=== PATIENT | male | born 1980 | race Caucasian/White ===

== ENCOUNTER 2020-02-23 16:00 | Inpatient (IN) | payer OTHER, SELFPAY ==
[2020-02-23] VITALS (18 sets, daily range): BP systolic 95–133; BP diastolic 53–86; PULSE 60–107; RESP 18–23; TEMP 35.8–36.8; O2SAT 89–100; BMI 29.2; BMI 29.0
--- NOTE | 2020-02-23 | ECG_ITS ---
Test Reason : UNRESPONSIVE Blood Pressure : / mmHG Vent. Rate : 092 BPM Atrial Rate : 092 BPM P-R Int : 122 ms QRS Dur : 096 ms QT Int : 376 ms P-R-T Axes : 070 041 066 degrees QTc Int : 464 ms Normal sinus rhythm Possible Lateral infarct , age undetermined Abnormal ECG No previous ECGs available Referred By: Rosemary Mondragon Electronically Signed By:JADA RETANA
--- NOTE | 2020-02-23 | XR_ITS ---
EXAMINATION: XR CHEST CLINICAL INFORMATION: OG tube COMPARISON: Chest radiograph from earlier in the same day TECHNIQUE: Frontal view of the chest was obtained. FINDINGS: The patient is intubated, the endotracheal tube tip is 5.9 cm from the ghislaine. There is been interval placement of an enteric tube with tip coiled in the gastric fundus below the diaphragm. There are bilateral left greater than right patchy/nodular opacities in the lungs without dense consolidation. IMPRESSION: 1. Enteric tube is coiled within the stomach. 2. Endotracheal tube is 5.8 cm from the ghislaine. 3. Bilateral, left greater than right patchy/nodular airspace opacities which could represent developing infiltrates in the right clinical setting
--- NOTE | 2020-02-23 | XR_ITS ---
EXAMINATION: XR CHEST CLINICAL INFORMATION: Post intubation COMPARISON: Previous chest CT November 2018 TECHNIQUE: Frontal view of the chest was obtained. FINDINGS: The cardiac and mediastinal contours are normal. There is an endotracheal tube with tip 7 cm above the ghislaine. The lungs are clear. There is no pleural effusion or pneumothorax. Bony structures are unremarkable. IMPRESSION: Endotracheal tube 7 cm above the ghislaine.
--- NOTE | 2020-02-23 | CT_ITS ---
EXAMINATION: CT SOFT TISSUE NECK WITHOUT CONTRAST CLINICAL INFORMATION: Submandibular swelling. Airway compromise. COMPARISON: Chest regressed from 02/23/2020. TECHNIQUE: Multidetector helical imaging was performed in the axial plane without intravenous contrast. Multiple axial reformats and coronal/sagittal reconstructions were created the technologist workstation for review. DLP: 487 mGy-cm This CT examination was performed using dose optimization techniques as appropriate, variously including the following: *Automated exposure control. *Adjustment of mA and/or kV according to patient size (this includes techniques or standardized protocols for targeted exams where dose is matched to indication/reason for exam; i.e. extremities or head). *Use of iterative reconstruction technique. FINDINGS: Mild asymmetric enlargement of the left submandibular gland relative to the right. Associated mild prominence of the left-sided submandibular ducts. No demonstrated obstructive focal stone or soft tissue mass lesion. There is moderate fat stranding/phlegmonous change centered on the left submandibular space the most notably extends into the left floor of mouth and left-sided tissues deep to the platysma muscle. To a lesser extent, there is also mild fat stranding in the left parapharyngeal space and left carotid space. No demonstrated parapharyngeal or retropharyngeal collections. Moderate thickening of the left side of the platysma muscle. Mild cutaneous thickening throughout the anterior neck with subcutaneous fat stranding. The premaxillary, retromaxillary, right-sided parapharyngeal, pterygopalatine fossa, and pretracheal adipose tissue is clear. No demonstrated abnormalities within the intrinsic tissues of the tongue. There is mild asymmetric sclerosis of the left mandibular body surrounding the premolar roots relative to the right side. Odontogenic enamel erosions of the maxillary molars. There is also erosion of the outer cortex of the alveolar process of the maxilla along the buccal roots of the left 2nd maxillary molar. However, there is no discrete periapical disease, cortical destruction, or odontogenic collection demonstrated. Normal appearance of the bilateral parotid glands. Normal appearance of the thyroid gland. Scattered subcentimeter lymph nodes bilaterally, none of which are pathologically enlarged. The patient is intubated with orogastric tube in place. Layering fluid within the pharynx, presumably related to intubation. No demonstrated radiopaque foreign bodies. Moderate mucosal thickening of the paranasal sinuses with mucous retention cyst in the right maxillary sinus. The mastoid air cells and middle ear cavities remain well aerated. The visualized portion of the skull base is without significant abnormalities. The atlantooccipital and atlantoaxial articulations remain well aligned. There is anatomic alignment of the vertebral bodies and posterior elements. No evidence of acute fracture or subluxation of the cervical spine. The vertebral body heights are maintained. The intervertebral disc spaces are maintained. There is no prevertebral soft tissue swelling. CT Upper Chest: The visualized lung apices and upper mediastinum are within normal limits. IMPRESSION: Mild asymmetric enlargement of the left submandibular gland relative to the right with mildly dilated salivary ducts. No demonstrated obstructive stone or soft tissue lesion. There is moderate edema/phlegmonous change throughout the left side of neck, centered on the submandibular gland. Findings remain suggestive of sialoadenitis. Osseous erosion or odontogenic collection there is mandibular and maxillary odontogenic disease, including erosion along the buccal roots of the left maxillary 2nd molar. However, there is no definitively demonstrated odontogenic collection. No discrete drainable fluid collection. No radiopaque foreign bodies. The patient is intubated with orogastric tube in place.
--- NOTE | 2020-02-23 16:18 | PC.NURSE ---
PT PREPARED FOR INTUBATION, 0.3 EPI GIVEN IM.
--- NOTE | 2020-02-23 16:19 | PC.NURSE ---
20 OF ETOMIDATE IN, 100 SUCC IN. P94.
--- NOTE | 2020-02-23 16:21 | PC.NURSE ---
RT AT BEDSIDE. INTUBATION SUCCESSFUL + COLOUR CHANGE. 25 @LIP #7.5. 18G IN L AC. 1L NS HUNG BP 188/122
--- NOTE | 2020-02-23 16:27 | PC.NURSE ---
TOTAL 4MG VERSED GIVEN FROM RSI KIT ORDERED PER .
--- NOTE | 2020-02-23 16:42 | PC.NURSE ---
PROPOFOL DRIP STARTED @ 20MCG/KG/MIN 94.1KG. 50MG PROPOFOL IVBOLUS GIVEN. PT REMAINS INTERMITTENTLY ALERT, EYES OPENING SPONTANEOUSLY. SOFT RESTRAINTS APPLIED.
[2020-02-23] MEDS: propofoL 1,000 MG/100 ML VIAL 11.43 MG IVCONT ×2 (16:43→20:26)
--- NOTE | 2020-02-23 16:50 | ED_ITS ---
HPI - Allergic Reaction General Chief complaint: Allergic Reaction Stated complaint: Swollen Lymph Node Time Seen by Provider: 02/23/20 16:30 Source: patient Mode of arrival: ambulatory History of Present Illness HPI narrative: I was called bedside secondary to shortness of breath after eating a sandwich. High-pressure patient on arrival to the ER patient states 1 hour ago he ate a chicken sandwich. Prior to 1 hour patient was completely normal no fevers no chills no respiratory distress. Upon my initial evaluation the decision was made to move the patient to a trauma room and intubated. No further history obtained MD complaint: allergic reaction Related Data Allergies Allergy/AdvReac Type Severity Reaction Status Date / Time penicillin V Allergy Unknown Verified 10/27/19 00:00 Penicillins [PENICILLINS] Allergy Unknown UNKNOWN Unverified 02/05/20 16:40 REACTION A CHILD Review of Systems Review of Systems: Yes all other systems are reviewed and are negative Constitutional: Constitutional: Reports as per HPI ENT: Comments: left-sided throat swelling Cardiovascular: Cardiovascular: Reports diaphoresis Respiratory: Respiratory: Denies hemoptysis [facility] Past Medical History Attestation statement: The following information was validated with the patient. Source: unable to obtain Medical History No known health problems Social History Social History Advance Directives: No Advance Directives Information Provided: No Physical Exam Vital Signs and I&O and Narrative: Vital Signs and I&O: Vital Signs Temp 98.1 F 02/23/20 16:05 Pulse 89 02/23/20 19:05 Resp 23 H 02/23/20 19:05 BP 120/78 02/23/20 19:05 Pulse Ox 100 02/23/20 19:05 Intake & Output 02/23/20 02/23/20 02/24/20 06:59 18:59 06:59 Weight 95.254 kg Body Mass Index 29.2 vital signs reviewed, hypoxia pulse ox 89% interpreted by me on room air Const: Other: Appearance: Alert mild distress Oriented X3. Eyes: Pupils equal, round and reactive to light. ENT: edema to submandibular area on the left. No tongue edema. No lacerations no abscess Neck: left submandibular edema no erythema no lacerations abrasions CVS: slightheart rate and rhythm. Pulses normal. Respiratory: mild respiratory distress. Breath sounds normal. no wheezing no rales Abdomen: Soft and nontender. Skin: Skin warm and dry. Normal skin color. Normal skin turgor. Extremities: No lower extremity edema. No lower extremity edema. Neuro: Oriented X 3. No motor deficit. No sensory deficit. General: No no acute distress Course Course Course Narrative: 39-year-old with severe anaphylaxis immediately intubated on arrival to emergency department. Will need IV sedation. IV Decadron. Admission to the ICU. I did speak with Dr. wang ICU will accept the p atient. throughout emergency department stay and was in room numerous times secondary to patient needed more sedation. Patient was fighting the vent multiple IV medications were given secondary to sedation. Patient did not pull the ET tube out which is good went to CT scan and I see a Procedures Intubation Time out performed: No sedative: Etomidate paralytic: Succinylcholine Laryngoscope: fiber optic video scope ET Tube Size: 7.5 ET Tube Uncuffed: Yes Tube Secured Depth (cm): 24 Tube Secured Location: lips Tube Placement Confirmation: visualized tube passing through cords, equal breath sounds bilaterally and confirmation by capnometry Patient Tolerated Procedure: well Intubation Complications: none MDM - Allergic Reaction Differential Diagnosis Differential diagnosis: Likely anaphylaxis, allergic reaction and angioedema Medical Records Attestation: I reviewed the patient's medical records. Lab Data Attestation: I reviewed the patient's lab results. Result diagrams: 02/23/20 17:22 02/23/20 17:22 Labs: Lab Results 02/23/20 02/23/20 Range/Units 17:22 17:22 WBC 12.0 H (4.8-10.8) X10*3/uL RBC 4.57 L (4.60-5.80) X10*6/uL Hgb 14.8 (14.0-18.0) g/dl Hct 43.3 (42-52) % MCV 94.7 (80-98) fL MCH 32.4 (27.0-33.0) pg MCHC 34.2 (31.0-36.0) g/dl RDW 12.7 (11.0-16.0) % Plt Count 269 (160-400) X10*3/uL MPV 9.3 L (9.4-12.4) fL Immature Gran % (Auto) 0.3 (0.0-0.4) % Neut % (Auto) 71.7 (45-73) % Lymph % (Auto) 18.2 L (20-40) % [place] % (Auto) 8.4 (2-11) % Eos % (Auto) 1.0 (0-4) % Baso % (Auto) 0.4 (0-2) % Neut # (Auto) 8.6 H (2.0-8.3) X10*3/uL Lymph # (Auto) 2.2 (1.2-4.9) X10*3/uL [place] # (Auto) 1.0 (0.1-1.2) X10*3/uL Eos # (Auto) 0.1 (0.0-0.4) X10*3/uL Baso # (Auto) 0.1 (0.0-0.2) X10*3/uL Abs Immat Gran (auto) 0.04 H (0.00-0.03) X10*3/uL Absolute Nucleated RBC 0.000 (0.0-0.012) X10*3/uL Nucleated RBC % (auto) 0.0 (0.0-0.2) /100WBC Sodium 143 (135-145) mmol/L Potassium 3.6 (3.3-5.1) mmol/l Chloride 112 H (96-108) mmol/L Carbon Dioxide 22 (22-29) mmol/L Anion Gap 13 (12-20) BUN 13 (9-16) mg/dL Creatinine 0.98 (0.5-1.4) mg/dL Estim Creat Clear Calc 121.5 Estimated GFR > 60 Random Glucose 82 (60-115) mg/dL Calcium 7.8 L (8.4-10.2) mg/dL Critical Care Time Critical Care Time Critical Care Time: Yes Total Critical Care Time: 35 Attestation: I attest to my care with Critical Care.. Multiple re- evaluations were done with me in vent management. Discharge Plan Discharge Clinical Impression: Anaphylaxis, Respiratory failure, Allergic angioedema Patient Disposition: Admitted as Observation
[2020-02-23] MEDS: 0.9 % Sodium Chloride 1,000 ML 999 ML IVCONT (16:58)
--- NOTE | 2020-02-23 17:00 | PC.NURSE ---
SBPS IN THE 90S, PROPOFOL DOSE TAPERED TO 10MCG/KG/HR. 1L OF NS ON PRESSURE BAG HUNG. SECOND 18G PERIPHERAL IV PLACED IN R LOWER ARM.
[2020-02-23] MEDS: dexAMETHasone sod phosphate 4 MG/ML VIAL 8 MG IVPUSH (17:30)
--- NOTE | 2020-02-23 17:30 | PC.NURSE ---
PT CONTINUES TO BE DIFFICULT TO KEEP SEDATED. MDS AT BEDSIDE. REPORT GIVEN TO LENS INSPECTOR. ADDITIONAL 25 CG FENTANYL IVP GIVEN PER VERBAL ORDER. SBPS>120S. . FENTANYL DRIP STARTED AT PROTOCOL DRIP START RATE. PROPOFOL INCREASED BACK TO 20MCG/KG./HR
[2020-02-23 17:54] LABS: MANUAL DIFF FLAG NO
[2020-02-23] MEDS: Midazolam HCl/PF 2 MG/2 ML VIAL IVPUSH (17:54)
[2020-02-23 17:56] LABS: Basophils Absolute Auto 0.1 X10*3/uL (0.0-0.2); Basophils Percent Auto 0.4 % (0-2); Eosinophils Absolute Auto 0.1 X10*3/uL (0.0-0.4); Hematocrit 43.3 % (42-52); Hemoglobin 14.8 g/dl (14.0-18.0); Imm Gran Abs Auto 0.04 X10*3/uL (0.00-0.03); Imm Gran Pct Auto 0.3 % (0.0-0.4); Lymphocytes Absolute Auto 2.2 X10*3/uL (1.2-4.9); Lymphocytes Percent Auto 18.2 % (20-40); Mean Corpuscular HGB Conc 34.2 g/dl (31.0-36.0); Mean Corpuscular Hemoglobin 32.4 pg (27.0-33.0); Mean Corpuscular Volume 94.7 fL (80-98); Mean Platelet Volume 9.3 fL (9.4-12.4); Monocytes Percent Auto 8.4 % (2-11); Neutrophils Absolute Auto 8.6 X10*3/uL (2.0-8.3); Neutrophils Percent Auto 71.7 % (45-73); Platelet Count 269 X10*3/uL (160-400); Red Blood Count 4.57 X10*6/uL (4.60-5.80); Red Cell Distribution Width 12.7 % (11.0-16.0)
--- NOTE | 2020-02-23 17:59 | PM.CCHP ---
History of Present Illness Date of Service: 02/23/20 Chief Complaint: neck swelling with rapidly progressive inability to swallow 39-year-old who had just eaten a sandwich came in complaining of submandibular swelling rapidly losing ability to swallow and became panicky over his breathing and was emergently intubated for what seemed to be an anaphylaxis but with no skin manifestations no lip or periorbital edema no rashes and no fever and was perfectly well up until having eaten that Hernan which history of penicillin allergy Review of Systems Review of Systems: Patient presented in in extremis rapidly losing his airway unable to give complete history but outside of complaints of swelling and inability to swallow and fear of airway compromise review of systems was otherwise negative especially no constitutional complaints of fever or chills Yes all other systems are reviewed and are negative [facility] Past Medical History Medical History No known health problems Social History Social History Smoking Status: Current every day smoker Tobacco Type: Cigarette Advance Directives: No Advance Directives Information Provided: No Meds Allergies Allergy/AdvReac Type Severity Reaction Status Date / Time penicillin V Allergy Unknown Unknown Verified 02/23/20 22:08 Penicillins [PENICILLINS] Allergy Unknown UNKNOWN Verified 02/23/20 22:09 REACTION A CHILD Physical Exam Vital Signs and I&O and Narrative: Vital Signs and I&O: Vital Signs Temp 98.1 F 02/23/20 16:05 Pulse 89 02/23/20 16:05 Resp 20 02/23/20 16:05 BP 133/78 02/23/20 16:05 Pulse Ox 89 L 02/23/20 16:05 Intake & Output 02/22/20 02/23/20 02/23/20 18:59 06:59 18:59 Weight 95.254 kg Body Mass Index 29.2 post intubation physical examination showed neck was supple patient was responsive despite sedation with clear-cut bilateral submandibular warty swelling but no other lymphadenopathy and he had no neck vein distension but had good bilateral carotid upstrokes and no bruits cardiac exam with a normal precordium and normal S1 normal S2 no g allops abdomen benign with no organomegaly nondistended nontender and good bowel sounds chest percussed equally clinically clear with no adventitious sounds and chest x-ray was clear x2 with good endotracheal tube and OG tube placement extremities may able to move all 4 no cyanosis no clubbing no edema and good bilateral distal pulses Results Labs Labs: Laboratory Tests 02/23/20 17:22 WBC 12.0 H RBC 4.57 L Hgb 14.8 Hct 43.3 MCV 94.7 MCH 32.4 MCHC 34.2 RDW 12.7 Plt Count 269 MPV 9.3 L Immature Gran % (Auto) 0.3 Neut % (Auto) 71.7 Lymph % (Auto) 18.2 L [place] % (Auto) 8.4 Eos % (Auto) 1.0 Baso % (Auto) 0.4 Neut # (Auto) 8.6 H Lymph # (Auto) 2.2 [place] # (Auto) 1.0 Eos # (Auto) 0.1 Baso # (Auto) 0.1 Abs Immat Gran (auto) 0.04 H Absolute Nucleated RBC 0.000 Nucleated RBC % (auto) 0.0 Assessment and Plan (1) Ilans angina: Status: Acute (2) Ilans angina: Start date: 02/23/20 Start time: 07:22 Status: Acute so I doubted the anaphylactic issue and was more concerned with possibility of submandibular space infection and retropharyngeal spread so I ordered CT scan which corroborated a masslike affect and simply kept him sedated and intubated and proceeded with 1 stat dose of meropenem because of penicillin allergy at 2 g and at and verbally ordered clindamycin which was starting this morning at 600 mg q.6 hourly along with Levaquin to cover most of what would be common from the upper airway
--- NOTE | 2020-02-23 18:20 | PC.NURSE ---
PT CONTINUING TO VOMIT PROFUSELY. SPONTANEOUS EYE OPENING. FENTANYL DRIP TITRATED TO 50MCG. ADDITIONAL IVP ROCURONIUM, KETAMINE ALSO ADMINISTERED
[2020-02-23 18:21] LABS: Anion Gap 13 (12-20); Blood Urea Nitrogen 13 mg/dL (9-16); Calcium 7.8 mg/dL (8.4-10.2); Carbon Dioxide 22 mmol/L (22-29); Chloride 112 mmol/L (96-108); Creatinine Clr Calc Pharmacy 121.5; Estimated Glomerular Filt Rate > 60; Glucose Random 82 mg/dL (60-115); Potassium 3.6 mmol/l (3.3-5.1); Sodium 143 mmol/L (135-145)
--- NOTE | 2020-02-23 18:43 | PC.NURSE ---
Addendum entered by Jammie Rodgers RN 02/23/20 18:48: EVENTS OF THIS NOTE OCCURRED 1615 Original Note: PER PT, 1 SANDWICH EATEN. SUBMANDIBULAR ANGIOEDEMA PRESENT, OCCLUDED AIRWAY. ONLY KNOWN ALLERGY TO PCN.
--- NOTE | 2020-02-23 18:45 | PC.NURSE ---
DUVALL PLACED. PT TO IMAGING.
--- NOTE | 2020-02-23 18:46 | PC.NURSE ---
Addendum entered by Jammie Rodgers RN 02/23/20 18:49: EVENTS OF THIS NOTE OCCURRED AT 1640 02/23/2020 Original Note: TOTAL 200MG IVP FENTANYL GIVEN PER MD D/T PT DIFFICULT TO SEDATE. PT FOLLOWING COMMANDS, SITTING UP, VOMITING LG QUANTITIES INTERMITTENTLY. OG TUBE INSERTED. CXR IN FOR CONFIRMATION OF PLACEMENT.
[2020-02-23] MEDS: Albuterol/Iprat 2.5/0.5MG 3 ML AMPUL.NEB INHALE (19:46)
[2020-02-23 20:25] LABS: Pt Ventilation O2% Venous 30%
[2020-02-23 20:31] LABS: Basophils Percent Auto 0.2 % (0-2); Eosinophils Percent Auto 0.1 % (0-4); Hematocrit 44.9 % (42-52); Hemoglobin 15.2 g/dl (14.0-18.0); Imm Gran Abs Auto 0.04 X10*3/uL (0.00-0.03); Imm Gran Pct Auto 0.2 % (0.0-0.4); Lymphocytes Absolute Auto 0.8 X10*3/uL (1.2-4.9); Lymphocytes Percent Auto 4.6 % (20-40); MANUAL DIFF FLAG SCAN; Mean Corpuscular HGB Conc 33.9 g/dl (31.0-36.0); Mean Corpuscular Hemoglobin 31.8 pg (27.0-33.0); Mean Corpuscular Volume 93.9 fL (80-98); Mean Platelet Volume 9.8 fL (9.4-12.4); Monocytes Absolute Auto 0.5 X10*3/uL (0.1-1.2); Monocytes Percent Auto 3.3 % (2-11); Neutrophils Absolute Auto 14.9 X10*3/uL (2.0-8.3); Neutrophils Percent Auto 91.6 % (45-73); Platelet Count 301 X10*3/uL (160-400); Red Blood Count 4.78 X10*6/uL (4.60-5.80); Red Cell Distribution Width 12.6 % (11.0-16.0); SCAN SMEAR FLAG 1; White Blood Count 16.3 X10*3/uL (4.8-10.8)
[2020-02-23 20:34] LABS: PCO2 VBG 41 mmhg; PO2 VBG 124 mmhg; pH VBG 7.37 (7.32-7.43)
[2020-02-23 20:35] LABS: Base Excess VBG -1.8 mmol/L; HCO3 VBG 23 mmol/L; Oxygen Saturation VBG 98.5 %
[2020-02-23] MEDS: Dextrose 5 % and 0.9 % NaCl 1,000 ML 100 ML IVCONT (20:38)
[2020-02-23 20:41] LABS: Prothrombin Time 12.1 SEC (10.8-13.0)
[2020-02-23 20:44] LABS: Partial Thromboplastin Time 30.8 SEC (24.1-38.0)
--- NOTE | 2020-02-23 20:48 | PM.CCN ---
Critical Care Event Note Summary Code activated: No <Kendra ValentintiffanieDANNY gentile - Last Filed: 02/23/20 22:56> Narrative: Spoke with Dr. Alvares, infectious disease, she advised nothing further to do, pt is intubated, sedated and will be started on antibiotics. Dr Alvares advised no need to transfer to tertiary care center and she authorized giving this patient meropenem due to his penicillin allergy as CT showed; IMPRESSION: Mild asymmetric enlargement of the left submandibular gland relative to the right with mildly dilated salivary ducts. No demonstrated obstructive stone or soft tissue lesion. There is moderate edema/phlegmonous change throughout the left side of neck, centered on the submandibular gland. Findings remain suggestive of sialoadenitis. Osseous erosion or odontogenic collection there is mandibular and maxillary odontogenic disease, including erosion along the buccal roots of the left maxillary 2nd molar. However, there is no definitively demonstrated odontogenic collection. No discrete drainable fluid collection. No radiopaque foreign bodies. The patient is intubated with orogastric tube in placeIMPRESSION: Mild asymmetric enlargement of the left submandibular gland relative to the right with mildly dilated salivary ducts. No demonstrated obstructive stone or soft tissue lesion. There is moderate edema/phlegmonous change throughout the left side of neck, centered on the submandibular gland. Findings remain suggestive of sialoadenitis. Osseous erosion or odontogenic collection there is mandibular and maxillary odontogenic disease, including erosion along the buccal roots of the left maxillary 2nd molar. However, there is no definitively demonstrated odontogenic collection. No discrete drainable fluid collection. No radiopaque foreign bodies. The patient is intubated with orogastric tube in place. Also, spoke with patient's and confirmed penicillin allergy with an unknown reaction as a child. patient's also stated he has had 2 months of tooth pain but has not been to a dentist to get it resolved. States he has no immunocompromised diagnoses. She states his only medical history is some acid reflux and he smokes 5-10 cigarettes per day. 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 She will come to the [facility] to collect his cell phone, keys and wallet. I will leave these with security for her. Case, CT scan results discussed with Dr Mondragon who agreed with assessment and plan. This case had a high probability of a clinically significant, sudden, or life threatening deterioration of this patient's condition which required my full and direct attention, intervention and personal management. <DANNY Faustin - Last Filed: 02/23/20 22:56> Critical care time: 30 - 74 mins <DANNY Faustin - Last Filed: 02/23/20 22:56>
[2020-02-23 20:52] LABS: C Reactive Protein 0.18 mg/dL (< or = 0.50)
[2020-02-23 21:06] LABS: Alanine Aminotransferase 34 U/L (0-40); Alkaline Phosphatase 75 U/L (39-117); Anion Gap 13 (12-20); Aspartate Amino Transferase 35 U/L (5-37); Bilirubin Total 0.5 mg/dL (0.0-1.0); Blood Urea Nitrogen 13 mg/dL (9-16); Calcium 8.3 mg/dL (8.4-10.2); Carbon Dioxide 21 mmol/L (22-29); Chloride 110 mmol/L (96-108); Creatinine Clr Calc Pharmacy 127.6; Estimated Glomerular Filt Rate > 60; Glucose Random 107 mg/dL (60-115); Magnesium 1.5 mg/dL (1.6-2.6); Potassium 3.5 mmol/l (3.3-5.1); Sodium 140 mmol/L (135-145); Total Protein 6.2 g/dL (6.5-8.0)
[2020-02-23 21:08] LABS: SLIDE REVIEW VERIFIED
[2020-02-23 21:11] LABS: Procalcitonin < 0.02 ng/mL
[2020-02-23 21:33] LABS: Glucose Urine UA NEG (NEG); Leukocyte Esterase Urine NEG (NEG); Nitrite Urine NEG (NEG); PH 5.5 (5.0-8.0); Specific Gravity - Urine >= 1.030 (1.005-1.025); Urine Blood TRACE (NEG); Urine Ketones NEG (NEG); Urine Protein NEG (NEG-TRACE)
[2020-02-23 21:35] LABS: Erythrocyte Sedimentation Rate 2 MM/HR (0-15)
[2020-02-23 21:38] LABS: Appearance Urine CLOUDY; Color Urine YELLOW
[2020-02-23 21:58] LABS: Squamous Epithelial Cell Urine TRACE /LPF; Uric Acid Crystals Urine 3+ /LPF; WBC Urine 0-2 /HPF (0-4)
[2020-02-23] MEDS: Famotidine/PF 20 MG/2 ML VIAL IVPUSH (23:10)
[2020-02-23] MEDS: propofoL 1,000 MG/100 ML VIAL 28.58 MG IVCONT (23:23)
[2020-02-24] VITALS (28 sets, daily range): BP systolic 95–135; BP diastolic 41–83; PULSE 55–116; RESP 18–28; TEMP 35.9–36.8; O2SAT 94–97; BMI 27.8
[2020-02-24 00:11] LABS: Amphetamine Screen Urine Not Detected (Not Detect); Barbiturates, Urine Not Detected (Not Detect); Benzodiazepines Screen Urine POSITIVE (Not Detect); Cannabinoid Screen Urine POSITIVE (Not Detect); Cocaine Screen Urine Not Detected (Not Detect); Opiate Screen Urine Not Detected (Not Detect); Phencyclidine Screen Urine Not Detected (Not Detect)
[2020-02-24] MEDS: propofoL 1,000 MG/100 ML VIAL 11.43 MG IVCONT (01:03)
[2020-02-24] MEDS: 0.9 % Sodium Chloride Flush 3 ML SYRINGE 2 ML IVFLUSH ×3 (01:05→23:47)
[2020-02-24] MEDS: Midazolam HCl/NS 50 MG/50 ML PLAST..BAG IVCONT ×2 (02:43→20:36)
[2020-02-24] MEDS: Chlorhexidine Gluc Oral Rinse 15 ML MOUTHWASH BUCCAL ×3 (02:44→18:43)
[2020-02-24] MEDS: propofoL 1,000 MG/100 ML VIAL 17.15 MG IVCONT (03:27)
[2020-02-24] MEDS: Phenylephrine HCL 20 MG in 0.9 % Sodium Chloride 250 ML 35.72 MG IVCONT (04:58)
--- NOTE | 2020-02-24 05:00 | XR_ITS ---
EXAMINATION: XR CHEST CLINICAL INFORMATION: Intubated COMPARISON: 02/23/2020 TECHNIQUE: Frontal view of the chest was obtained. FINDINGS: Endotracheal tube terminates approximately 5 cm above the ghislaine. Enteric tube extends into the stomach. Cardiac leads overlie the chest. The lungs are well expanded. Minimal patchy opacities are seen at the lower lungs, similar to prior. No pleural effusion. No pneumothorax. The cardiomediastinal silhouette is within normal limits. IMPRESSION: Endotracheal tube terminating approximately 5 cm above the ghislaine. Similar appearance of patchy basilar opacities.
[2020-02-24] MEDS: Dextrose 5 % and 0.9 % NaCl 1,000 ML 100 ML IVCONT ×2 (05:30→15:57)
[2020-02-24] MEDS: dexAMETHasone sod phosphate 4 MG/ML VIAL 6 MG IVPUSH (05:34)
[2020-02-24 06:00] LABS: Baso%MD 0.1 %; Hematocrit 44.8 % (42-52); Hemoglobin 14.9 g/dl (14.0-18.0); IG%MD 0.5 %; Lymph%MD 4.1 %; Mean Corpuscular HGB Conc 33.3 g/dl (31.0-36.0); Mean Corpuscular Hemoglobin 31.7 pg (27.0-33.0); Mean Corpuscular Volume 95.3 fL (80-98); Mean Platelet Volume 9.6 fL (9.4-12.4); Mono%MD 3.1 %; Neut%MD 92.2 %; Platelet Count 316 X10*3/uL (160-400); Red Cell Distribution Width 12.6 % (11.0-16.0); White Blood Count 17.6 X10*3/uL (4.8-10.8)
[2020-02-24 06:11] LABS: Pt Ventilation O2% Venous 30%
[2020-02-24 06:18] LABS: Base Excess VBG -2.9 mmol/L; HCO3 VBG 23 mmol/L; Oxygen Saturation VBG 98.3 %; PCO2 VBG 42 mmhg; PO2 VBG 109 mmhg; pH VBG 7.35 (7.32-7.43)
[2020-02-24 06:20] LABS: Anion Gap 10 (12-20); Blood Urea Nitrogen 11 mg/dL (9-16); Calcium 8.8 mg/dL (8.4-10.2); Carbon Dioxide 24 mmol/L (22-29); Chloride 111 mmol/L (96-108); Creatinine Clr Calc Pharmacy 134.8; Estimated Glomerular Filt Rate > 60; Glucose Random 169 mg/dL (60-115); Magnesium 1.7 mg/dL (1.6-2.6); Phosphorus 3.2 mg/dL (2.7-4.5); Potassium 4.2 mmol/l (3.3-5.1); Sodium 141 mmol/L (135-145)
[2020-02-24 06:40] LABS: Band Neutrophils Percent 1 % (3-5); Giant Platelet PRESENT; Large Platelet PRESENT; Lymphocytes Absolute Manual 0.5 X10*3/uL (0.6-4.8); Lymphocytes Percent Manual 3 % (20-40); Monocytes Absolute Manual 0.2 X10*3/uL (0.0-1.2); Monocytes Percent Manual 1 % (2-11); Neutrophils Absolute Manual 16.9 X10*3/uL (2.2-7.9); Neutrophils Percent Manual 95 % (45-73); Platelet Estimate NORMAL (NORMAL); Platelet Morphology Comment NORMAL
[2020-02-24] MEDS: propofoL 1,000 MG/100 ML VIAL 14.29 MG IVCONT (06:40)
[2020-02-24 06:41] LABS: RBC Morphology NORMAL
[2020-02-24] MEDS: Albuterol/Iprat 2.5/0.5MG 3 ML AMPUL.NEB INHALE ×3 (07:36→20:32)
[2020-02-24] MEDS: Clindamycin Phosphate/D5W 600 MG/50 ML PIGGYBACK 100 MG IV (09:41)
[2020-02-24] MEDS: Famotidine/PF 20 MG/2 ML VIAL IVPUSH ×2 (09:41→20:35)
[2020-02-24] MEDS: propofoL 1,000 MG/100 ML VIAL 25.72 MG IVCONT (11:10)
--- NOTE | 2020-02-24 11:32 | MHC.CM.PN ---
pt is in the icu, intubated, sedated on mech. vent. the patient was independent and functional prior to admission, working a job and driving a car. pt lives c s.o. in their apt. at this time there is no expected dc needs. pt's s.o. can help him should he have any needs . this will include a ride home at dc. dc plan is home no svcs. cm to cont. to follow.
--- NOTE | 2020-02-24 12:11 | MHC.CLN ---
IF TF NEEDED: RECOMMEND [facility]EVITY AT MAX GOAL RATE 50CC/HR TO PROVIDE 1272KCALS (1950KCALS WITH SEDATION; 23KCALS/KG), 53G PROTEIN (.6G/KG), 1002CC FREE WATER FROM FORMULA MONITOR RESIDUALS, TOLERANCE AND LYTES FOLLOWING
--- NOTE | 2020-02-24 13:04 | W.PM.IDCN ---
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 [place] He has no fever or chills at this time No one else is ill He appears to ER and goes to ER ,concern CT phlegmonous area and goes to ICU and intubated ICU airway protection,swelling Review of Systems Review of Systems: cant assess,vented PMF Past Medical History Medical History No known health problems Social History Social History Smoking Status: Current every day smoker Tobacco Type: Cigarette Currently Displaying Signs/Symptoms of Drug Intoxication Withdrawal: No Advance Directives: No Advance Directives Information Provided: No Do you have thoughts of harming others: None Do you have a plan to hurt others: No Plan service: No Current occupational status: employed Meds Allergies Allergy/AdvReac Type Severity Reaction Status Date / Time penicillin V Allergy Unknown Unknown Verified 02/23/20 22:08 Penicillins [PENICILLINS] Allergy Unknown UNKNOWN Verified 02/23/20 22:09 REACTION A CHILD Physical Exam Vital Signs and I&O and Narrative: Vital Signs and I&O: Vital Signs Temp 98.1 F 02/24/20 11:51 Pulse 56 02/24/20 11:51 Resp 18 02/24/20 11:51 BP 119/71 02/24/20 11:51 Pulse Ox 96 02/24/20 11:51 Intake & Output 02/23/20 02/24/20 02/24/20 18:59 06:59 18:59 Intake Total 999 / 2769.612 1770.612 / 2769.61 2 129.660 / 129.660 Output Total 1490 / 1840 1450 / 1450 Balance 999 / 929.612 280.612 / 929.612 -1320.340 / -1320. 340 Urine Output (Aver age ml/kg/hr) 1.31 1.33 Weight 210 lb 208 lb 5.389 oz 200 lb Intake: Intake, Oral Rox unt 0 / 0 Intake (Blood Pr oduct) Amount 292 / 292 Thawed Plasma (E2720) Unit 292 / 292 [id number] Intake, IV Amoun t 999 / 2477.612 1478.612 / 2477.61 2 129.660 / 129.660 Clindamycin Ph osphate/D5W 600 50 / 50 mg In 50 ml @ 100 mls/hr IV Q6H [facility] Rx#:[id number] Meropenem 2 gm In 0.9 % Sodium 100 / 100 Chloride 100 m l @ 100 mls/hr IV ONCE ONE Rx#:[id number] 0.9 % Sodium C hloride 1,000 ml 999 / 999 @ 999 mls/hr I VCONT .Q1H1M [facility] Rx#:[id number] Dextrose 5 % a nd 0.9 % NaCl 1, 886.667 / 886.667 000 ml @ 100 m ls/hr IVCONT . Q10H [facility] Rx#:[id number] Phenylephrine HCL 20 mg In 0.9 66.677 / 66.677 % Sodium Chlor afsaneh 250 ml @ Per Protocol IVCON T .Q0M [facility] Rx#: [id number] propofoL 1,000 mg In 100 ml @ 425.268 / 425.268 79.660 / 79.660 Per Protocol I VCONT .Q0M [facility] Rx #:[id number] Output: Output, Urine Am ount 40 / 40 Output, Urine Am ount (Catheter) 1450 / 1800 1450 / 1450 Urethral 1450 / 1800 1450 / 1450 Other: NPO Yes Urine Color Cloudy with Sedime nt Yellow Body Mass Index 27.8 Const: General: no acute distress HENMT: Other: swollen neck and left face Resp: Effort & Inspection: normal respiratory effort Cardio: Rhythm: regular rhythm GI: Inspection: Yes normal to inspection Skin: General skin exam: no rashes or lesions noted Extrem: General: Yes normal to inspection Assessment and Plan (1) Ludwigs angina: Problem details: He is on ventilator and has possible anerobes,gram negatives concern Good medication is penicillin,no h/o allergy as adult,tolerated at [facility] for prior scrotal and groin area Less likely COVID concerns Status: Acute Merem Stop Levaquin and Clindamycin at this time Check COVID,HIV, immunoglobulins
[2020-02-24] MEDS: propofoL 1,000 MG/100 ML VIAL 21.77 MG IVCONT ×2 (14:34→19:15)
[2020-02-24 15:02] LABS: SARS COV2 PCR INHOUSE NEGATIVE (Negative)
--- NOTE | 2020-02-24 15:02 | PC.NURSE ---
Administratively ended an infusion for propofol with ASHLEY Lovell due to bottle change and new order. Ended infusion from 02/23/[address] Mondragon to zero out bottle and end task.
[2020-02-24] MEDS: Nicotine 7 MG PATCH.TD24 TRANSDERMA (21:03)
[2020-02-24] MEDS: fentaNYL citrate/NS 1,000 MCG/100 ML PLAST..BAG 30 MCG IVCONT (22:05)
[2020-02-24] MEDS: fentaNYL citrate/PF 100 MCG/2 ML VIAL 50 MCG IVPUSH (22:09)
[2020-02-24] MEDS: propofoL 1,000 MG/100 ML VIAL 19.05 MG IVCONT (23:45)
[2020-02-25] VITALS (28 sets, daily range): BP systolic 89–142; BP diastolic 52–82; PULSE 55–138; RESP 17–18; TEMP 35.9–39; O2SAT 94–100; BMI 26.9
--- NOTE | 2020-02-25 | MR_ITS ---
EXAMINATION: MRI ORBIT WITHOUT AND WITH CONTRAST MRV HEAD WITHOUT CONTRAST CLINICAL INFORMATION: Cavernous sinus thrombosis. COMPARISON: CT neck from 02/25/2020 and 02/23/2020. TECHNIQUE: MRI of the orbit was obtained using routine sequences without and with contrast. Additional sagittal InHance 3D MRV images of the head were obtained. Coronal 2D [id number] SPGR MR venography of the head acquired. Sagittal time resolved (TRICKS) venography of the head was performed. An axial 3D postcontrast MR venography sequences also obtained. 3D postprocessing including acquisition of multiplanar MIP reformats are obtained at the technologist workstation and utilized for image interpretation. Intravenous contrast: Gadavist 10 mL. FINDINGS: No demonstrated abnormalities of the orbits. No significant preseptal or retrobulbar edema. Normal appearance of the globes. Normal symmetric appearance of the extraocular musculature. No abnormalities of the intraconal or extraconal adipose tissue. Normal appearance of the optic nerves and their sheaths. Normal appearance of the lacrimal glands. No orbital fluid collections. No abnormalities of the orbital apices. Normal appearance of the optic chiasm. Normal appearance of the pituitary gland and infundibulum. Normal appearance of the cavernous sinuses without abnormal filling defects. No demonstrated abnormalities of the intracranial internal carotid or anterior cerebral arteries. Mild to moderate mucosal thickening of the ethmoid air cells, sphenoid air cells, and right maxillary sinus. There is also a moderate-sized mucous retention cyst within the inferior aspect of the right maxillary sinus. Mild left convex curvature of the nasal septum. No demonstrated abnormalities of the visualized intracranial structures. No abnormal intracranial enhancement. Normal appearance of the visualized portions of the parotid glands. There is a region of failed fat saturation within the left retromaxillary adipose tissue. Otherwise, the visualized premaxillary, retromaxillary, pterygopalatine fossa, and temporal fossa adipose tissue is normal in appearance. No demonstrated abnormalities of the cavernous sinuses. No demonstrated vascular abnormalities. Head MRV: Normal flow signal and opacification of the superior sagittal, straight, transverse, and sigmoid sinuses. Normal opacification of the cavernous sinus without abnormal contours or filling defects. IMPRESSION: 1. No evidence for cerebral venous sinus thrombosis. Normal appearance of the cavernous sinus. 2. No MRI abnormalities of the orbits. 3. Mild to moderate mucosal sinonasal disease.
--- NOTE | 2020-02-25 | XR_ITS ---
EXAMINATION: XR CHEST CLINICAL INFORMATION: OG tube replaced. Confirm placement. COMPARISON: 02/24/2020 TECHNIQUE: Frontal view of the chest was obtained. FINDINGS: Endotracheal tube remains in place, terminating 6 cm above the ghislaine. Enteric tube extends into the stomach, beyond the fqpjz-be-imre of this study. Cardiac leads overlie the chest. The lungs are well expanded. The lung apices are not included in the bydlu-uk-anuh of this study. Increased hazy opacity of the right lung base. No pleural effusion. No edema. No large pneumothorax. The cardiomediastinal silhouette is within normal limits. IMPRESSION: 1. Enteric tube extends into the stomach, beyond the ihswv-[id number] of this study. 2. Increased right basilar airspace opacity.
--- NOTE | 2020-02-25 | CT_ITS ---
EXAMINATION: CT SOFT TISSUE NECK WITH CONTRAST CLINICAL INFORMATION: Assess for retropharyngeal collection. COMPARISON: 02/23/2020 TECHNIQUE: Following the intravenous administration of 85 mL of Omnipaque 350 intravenous contrast, helical imaging was performed in the axial plane with generation of coronal and sagittal reformatted images. This CT examination was performed using dose optimization techniques as appropriate, variously including the following: *Automated exposure control *Adjustment of mA and/or kV according to patient size (this includes techniques or standardized protocols for targeted exams where dose is matched to indication/reason for exam; i.e. extremities or head) *Use of iterative reconstruction technique DLP: 776 mGy-cm FINDINGS: No cervical adenopathy is identified. The parotid glands are homogeneous in attenuation. Mild asymmetric enlargement of the left submandibular gland with adjacent inflammation. This is similar to prior. Stranding extends into the subcutaneous fat on the left. No contour abnormality or pathologic enhancement is seen within the oral cavity or pharyngeal mucosal space. Fluid within the nasal cavity and nasopharynx. Endotracheal tube in place. Enteric tube in place. The laryngeal structures are normal. The parapharyngeal fat is preserved. The carotid sheath vasculature opacify normally. No extra mucosal soft tissue mass or fluid collection is seen. No retropharyngeal fluid collection is seen. The thyroid gland is normal. The superior mediastinum is unremarkable. The lung apices are clear. The mastoid air cells are well aerated. Right maxillary sinus mucous retention cyst. The temporomandibular joints are normal. No periapical disease is identified. No osseous abnormalities are seen. The imaged portions of the brain parenchyma are unremarkable. IMPRESSION: No retropharyngeal fluid collection. Persistent asymmetric enlargement of the left submandibular gland with adjacent inflammatory changes suggestive of sialoadenitis.
--- NOTE | 2020-02-25 | CT_ITS ---
EXAMINATION: CT CHEST WITH CONTRAST CLINICAL INFORMATION: Assess for mediastinitis COMPARISON: Neck CT performed today TECHNIQUE: Multidetector volumetric CT imaging of the chest was obtained after the administration of 85 mL of Omnipaque 350 intravenous contrast without immediate adverse reactions. Axial MIP volume rendering provided. Sagittal and coronal reformatted images were obtained. This CT examination was performed using dose optimization techniques as appropriate, variously including the following: *Automated exposure control *Adjustment of mA and/or kV according to patient size (this includes techniques or standardized protocols for targeted exams where dose is matched to indication/reason for exam; i.e. extremities or head) *Use of iterative reconstruction technique DLP: 521 mGy-cm FINDINGS: LUNGS: The endotracheal tube terminates approximately 4.5 cm above the ghislaine. Secretions/filling defects within the right mainstem bronchus and right lower lobe bronchi. There is bilateral lower lobe consolidation, right greater than left. Small right pleural effusion. Additional patchy opacity is seen in the right middle lobe and right lower lobe. No pneumothorax. MEDIASTINUM: Normal heart size. No pericardial effusion. No mediastinal lymphadenopathy. No inflammatory changes of the mediastinal fat. AXILLA: No lymphadenopathy. UPPER ABDOMEN: Unremarkable OSSEOUS STRUCTURES: Unremarkable. IMPRESSION: 1. Small right pleural effusion. Dense lower lobe consolidation bilaterally with additional patchy opacities. This may represent pneumonia. Aspiration should be considered. 2. No inflammatory changes of the mediastinum. 3. Endotracheal tube terminating 4.5 cm above the ghislaine.
[2020-02-25] MEDS: fentaNYL citrate/NS 1,000 MCG/100 ML PLAST..BAG 30 MCG IVCONT ×6 (01:30→20:58)
[2020-02-25] MEDS: Dextrose 5 % and 0.9 % NaCl 1,000 ML 100 ML IVCONT (01:46)
[2020-02-25] MEDS: Chlorhexidine Gluc Oral Rinse 15 ML MOUTHWASH BUCCAL ×2 (04:43→10:21)
[2020-02-25] MEDS: Midazolam HCl/PF 2 MG/2 ML VIAL IVPUSH (04:43)
[2020-02-25 05:19] LABS: Base Excess VBG -1.3 mmol/L; HCO3 VBG 25 mmol/L; PCO2 VBG 49 mmhg; PO2 VBG 38 mmhg; pH VBG 7.33 (7.32-7.43)
[2020-02-25 05:20] LABS: Blood Gas Serial # 5415; Oxygen Saturation VBG 74.2 %
[2020-02-25 05:28] LABS: Anion Gap 15 (12-20); Blood Urea Nitrogen 9 mg/dL (9-16); Carbon Dioxide 21 mmol/L (22-29); Chloride 113 mmol/L (96-108); Creatinine Clr Calc Pharmacy 135.5; Estimated Glomerular Filt Rate > 60; Glucose Random 119 mg/dL (60-115); Lactic Acid 3.5 mmol/L (0.5-2.0); Phosphorus 3.8 mg/dL (2.7-4.5); Potassium 3.8 mmol/l (3.3-5.1); Sodium 145 mmol/L (135-145)
[2020-02-25 05:33] LABS: Basophils Percent Auto 0.1 % (0-2); Hematocrit 50.4 % (42-52); Hemoglobin 16.1 g/dl (14.0-18.0); Imm Gran Abs Auto 0.09 X10*3/uL (0.00-0.03); Imm Gran Pct Auto 0.4 % (0.0-0.4); Lymphocytes Absolute Auto 1.1 X10*3/uL (1.2-4.9); Lymphocytes Percent Auto 5.5 % (20-40); MANUAL DIFF FLAG SCAN; Mean Corpuscular HGB Conc 31.9 g/dl (31.0-36.0); Mean Corpuscular Hemoglobin 31.7 pg (27.0-33.0); Mean Corpuscular Volume 99.2 fL (80-98); Mean Platelet Volume 9.7 fL (9.4-12.4); Monocytes Absolute Auto 0.3 X10*3/uL (0.1-1.2); Monocytes Percent Auto 1.5 % (2-11); Neutrophils Absolute Auto 18.9 X10*3/uL (2.0-8.3); Neutrophils Percent Auto 92.5 % (45-73); Platelet Count 267 X10*3/uL (160-400); Red Blood Count 5.08 X10*6/uL (4.60-5.80); Red Cell Distribution Width 13.2 % (11.0-16.0); SCAN SMEAR FLAG 1; White Blood Count 20.5 X10*3/uL (4.8-10.8)
[2020-02-25 05:39] LABS: SLIDE REVIEW VERIFIED
[2020-02-25] MEDS: vancomycin HCL 1,000 MG in 0.9 % Sodium Chloride 250 ML 270 MG IV (05:48)
[2020-02-25] MEDS: dexAMETHasone sod phosphate 4 MG/ML VIAL 6 MG IVPUSH (05:56)
[2020-02-25] MEDS: Pantoprazole Sodium 40 MG/10 ML VIAL IVPUSH (05:56)
--- NOTE | 2020-02-25 06:19 | PC.RT ---
RADIOLOGY NOTE - PT GIVEN 85CC OMNIPAQUE [address] SCAN ST NECK AND CHEST, UNABLE TO VERIFY MEDICATION IN THE MAR, CALLED THE COMMAND [facility], [facility] PUT IN A TICKET. I AM WAITING TO HEAR BACK ON THE TICKET, MEDICATION IS CURRENTLY UNVERIFIED AND UNACKNOWLEDGED. 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
[2020-02-25] MEDS: Acetaminophen Oral Liquid 650 MG/20.3 ML SOLUTION OG-TUBE (06:29)
[2020-02-25] MEDS: propofoL 1,000 MG/100 ML VIAL 27.22 MG IVCONT ×5 (06:32→20:57)
[2020-02-25 06:49] LABS: Reflex Lactate? Lactic Acid Added
[2020-02-25] MEDS: KCl 20 mEq in 0.45% Sod 20 MEQ/1,000 ML IV.SOLN 100 MEQ IVCONT ×2 (06:50→16:24)
[2020-02-25] MEDS: Albuterol/Iprat 2.5/0.5MG 3 ML AMPUL.NEB INHALE ×3 (07:58→19:33)
[2020-02-25 08:15] LABS: ~Lactic Acid-LAB USE ONLY 2.2 mmol/L (0.5-2.0)
--- NOTE | 2020-02-25 08:45 | PM.CCPN ---
Subjective Subjective Date of Service: 02/25/20 Interval History: 40-year-old who presented with drooling and inability to swallow saliva as he noted a rapidly progressive swelling in the submandibular area and was urgently intubated in the emergency room for for potential progressive airway loss and thus far it appears that he has got considerable swelling and induration and surrounding inflammation around the left submandibular gland filling some of that submandibular space but also issues with his dentition which are poor and questionable extension of maxillary and or mandibular abscess and seems today to be developing a little bit of facial swelling and cellulitis and repeat CT scan this morning shows no evidence of retropharyngeal or mediastinal spread and then subsequently developed a fever spike to 102 with shaking chills and based upon which he was completely re-cultured and in addition to the meropenem vancomycin was given 1 dose as we await results of cultures he also developed some mild hypernatremia so we introduced tube feedings along with free water as well as changing his IV from normal saline to half normal saline but he also remains on Justin-Synephrine for maintenance of a mean arterial pressure currently at 69 and since resolution of the temperature spike and improvement in his intravascular volume heart rate came down from 120 to 100 and he is on an FiO2 of 30% maintaining oxygen saturation of 96% but CT scan of his chest clearly indicated bilateral right greater than left aspiration pneumonitis at this point he appears to be clinically septic with acute elevation but now slowly resolving lactic acidosis at 3.5 because of the facial swelling and the bilateral chemosis I am going to proceed with a MRV and an MR of the neck and head including orbital region to rule out cavernous sinus thrombosis as an extension of the suppurative process Physical Exam Vital Signs and I&O and Narrative: Vital Signs and I&O: Vital Signs Temp 100.4 F 02/25/20 08:00 Pulse 103 H 02/25/20 08:00 Resp 18 02/25/20 08:00 BP 95/57 L 02/25/20 08:00 Pulse Ox 95 02/25/20 08:00 Intake & Output 02/24/20 02/25/20 02/25/20 18:59 06:59 18:59 Intake Total 1466.836 / 3086.98 7 1620.151 / 3086.98 7 670 / 670 Output Total 2335 / 3405 1070 / 3405 275 / 275 Balance -868.164 / -318.01 3 550.151 / -318.013 395 / 395 Urine Output (Aver age ml/kg/hr) 2.14 0.98 0.25 Weight 90.718 kg Intake: Intake, Oral Rox unt 0 / 0 Intake, IV Amoun t 1466.836 / 3086.98 7 1620.151 / 3086.98 7 670 / 670 Clindamycin Ph osphate/D5W 600 50 / 50 mg In 50 ml @ 100 mls/hr IV Q6H [facility] Rx#:[id number] Meropenem 1 gm In 0.9 % Sodium 100 / 200 100 / 200 100 / 100 Chloride 100 m l @ 100 mls/hr IV Q8H [facility] Rx#:[id number] vancomycin HCL 1,000 mg In 0.9 270 / 270 % Sodium Chlor afsaneh 250 ml @ 270 mls/hr IV ONCE ONE Rx#: [id number] Dextrose 5 % a nd 0.9 % NaCl 1, 1000 / 1981.667 981.667 / 1981.667 300 / 300 000 ml @ 100 m ls/hr IVCONT . Q10H [facility] Rx#:[id number] Midazolam HCl/ NS 50 mg In 50 ml 39.067 / 39.067 @ 2 MG/HR 2 ml s/hr IVCONT . Q24H [facility] Rx#:[id number] Phenylephrine HCL 20 mg In 0.9 149.726 / 149.726 % Sodium Chlor afsaneh 250 ml @ Per Protocol IVCON T .Q0M [facility] Rx#: [id number] fentaNYL citra te/NS 1,000 mcg 200 / 200 In 100 ml @ Pe r Protocol IVCONT .Q0M [facility] Rx#:[id number] propofoL 1,000 mg In 100 ml @ 167.110 / 466.527 299.417 / 466.527 Per Protocol I VCONT .Q0M [facility] Rx #:[id number] Output: Output, Urine Am ount (Catheter) 2335 / 3405 1070 / 3405 275 / 275 Urethral 2335 / 3405 1070 / 3405 275 / 275 Other: NPO Yes Yes Urine Color Yellow Cloudy with Sedime nt Pale Yellow Body Mass Index 27.8 on physical exam he is sedated and intubated with definite increase in bilateral facial as well as periorbital edema and chemosis pupils equal and reactive to light good bilateral carotid upstrokes no bruits and no neck vein distension chest is without adventitious sounds cardiac exam with normal S1 normal S2 with no gallops murmurs or rubs abdomen with positive bowel sounds it appears to be soft nontend er no organomegaly skin without rash or decubitus good bilateral peripheral pulses with no cyanosis and no clubbing Objective Data Labs CBC & Chem 7: 02/26/20 07:36 02/26/20 05:26 Labs: Laboratory Results - last 24 hr 02/24/20 02/25/20 02/25/20 13:56 04:44 04:44 WBC 20.5 H RBC 5.08 Hgb 16.1 Hct 50.4 MCV 99.2 H MCH 31.7 MCHC 31.9 RDW 13.2 Plt Count 267 MPV 9.7 Immature Gran % (Auto) 0.4 Neut % (Auto) 92.5 H Lymph % (Auto) 5.5 L [place] % (Auto) 1.5 L Eos % (Auto) 0.0 Baso % (Auto) 0.1 Neut # (Auto) 18.9 H Lymph # (Auto) 1.1 L [place] # (Auto) 0.3 Eos # (Auto) 0.0 Baso # (Auto) 0.0 Abs Immat Gran (auto) 0.09 H Absolute Nucleated RBC 0.000 Nucleated RBC % (auto) 0.0 Smear Tech's Comments VERIFIED VBG pH VBG pCO2 VBG pO2 VBG HCO3 VBG O2 Saturation VBG Base Excess Sodium 145 Potassium 3.8 Chloride 113 H Carbon Dioxide 21 L Anion Gap 15 BUN 9 Creatinine 0.86 Estim Creat Clear Calc 135.5 Estimated GFR > 60 Random Glucose 119 H Lactic Acid Lactic Acid Fup @ 2Hr Calcium 9.0 Phosphorus 3.8 Magnesium 2.0 Coronavirus (PCR) NEGATIVE 02/25/20 02/25/20 02/25/20 04:44 04:45 07:20 WBC RBC Hgb Hct MCV MCH MCHC RDW Plt Count MPV Immature Gran % (Auto) Neut % (Auto) Lymph % (Auto) [place] % (Auto) Eos % (Auto) Baso % (Auto) Neut # (Auto) Lymph # (Auto) [place] # (Auto) Eos # (Auto) Baso # (Auto) Abs Immat Gran (auto) Absolute Nucleated RBC Nucleated RBC % (auto) Smear Tech's Comments VBG pH 7.33 VBG pCO2 49 VBG pO2 38 VBG HCO3 25 VBG O2 Saturation 74.2 VBG Base Excess -1.3 Sodium Potassium Chloride Carbon Dioxide Anion Gap BUN Creatinine Estim Creat Clear Calc Estimated GFR Random Glucose Lactic Acid 3.5 H* Lactic Acid Fup @ 2Hr 2.2 H* Calcium Phosphorus Magnesium Coronavirus (PCR) ABG Attestation: I personally reviewed and interpreted this ABG as follows: Interpretation: stable and compensated respiratory status without evidence of metabolic acidosis ECG Attestation: I personally reviewed and interpreted this ECG as follows: Interpretation: normal sinus rhythm and within normal limits Microbiology Microbiology Results: no culture results to date Echocardiogram Interpretation: normal LV and RV anatomy and no primary valve or pericardial disease Progress Note: A&P Assessment and plan (1) Ludwigs angina: Problem details: He is on ventilator and has possible anerobes,gram negatives concern Good medication is penicillin,no h/o allergy as adult,tolerated at [facility] for prior scrotal and groin area Less likely COVID concerns thus far all the imaging seems to point to a suppurative submandibular adenitis as well as aspiration pneumonitis and coverage continues to include meropenem and vancomycin without complication Status: Acute (2) Ludwigs angina: Status: Acute (3) Anaphylaxis: Status: Acute (4) Respiratory failure: Status: Acute (5) Allergic angioedema: Status: Acute (6) Submandibular gland inflammation: Status: Acute (7) Aspiration of gastric contents: Status: Acute Time Spent With Patient Time: Total time spent is greater than 50% in coordination of care (as documented) at patient's floor/unit and/or counseling patient: Time with patient: Greater than 35 minutes
[2020-02-25 08:56] LABS: ~HepC Num1 0.17 S/CO (0.00-0.79); ~Hepatitis C Antibody Nonreactive (Nonreactive)
[2020-02-25 09:29] LABS: HIV AB/AG Nonreactive (Nonreactive); HIV Num 1 0.04 S/CO (0.00-0.99)
[2020-02-25 09:31] LABS: Reflex Lactate? 2 Y
--- NOTE | 2020-02-25 09:35 | MHC.CM.PN ---
Patient remains intubated/vented in ICU. Per Dr Mondragon, possible transfer to [facility]. Patient is from home without services. Continue to monitor for d/c needs.
--- NOTE | 2020-02-25 09:35 | MHC.CLN ---
F/U: PT TO START JEVITY AT MAX GOAL 60CC/HR WITH 120CC FREE WATER FLUSHES Q 4HRS PROVIDES 1526KCALS (2244KCALS WITH SEDATION; 27KCALS/KG), 64G PROTEIN (.76G/KG), 1922CC TOTAL WATER FROM FORMULA AND FLUSHES (23CC/KG) IF SEDATION INCREASES; RECOMMEND DECREASING JEVITY TO MAX GOAL RATE 50CC/HR MONITOR LYTES, RESIDUALS AND TOLERANCE FOLLOWING
[2020-02-25] MEDS: Phenylephrine HCL 20 MG in 0.9 % Sodium Chloride 250 ML 33.15 MG IVCONT ×2 (10:01→16:19)
[2020-02-25 10:16] LABS: ~Lactic Acid-LAB USE ONLY 2.5 mmol/L (0.5-2.0)
--- NOTE | 2020-02-25 10:35 | PC.NURSE ---
SCLERA EDEMA NOW NOTED FACIAL EDEMA PERSISTS WITH SMALL VESSEL S REDDENED AWARE NEW #20 RIGHT HAND NEOSYNEPHRINE STARTED 0.5MCG/KG/MIN TUBE FEEDS STARTED JEVITY 20ML/HR
[2020-02-25] MEDS: vancomycin HCL 1,000 MG in 0.9 % Sodium Chloride 250 ML 180 MG IV ×2 (12:06→20:27)
[2020-02-25] MEDS: 0.9 % Sodium Chloride Flush 3 ML SYRINGE 2 ML IVFLUSH (16:24)
[2020-02-25] MEDS: Phenylephrine HCL 20 MG in 0.9 % Sodium Chloride 250 ML 19.89 MG IVCONT (23:38)
[2020-02-26] VITALS (34 sets, daily range): BP systolic 93–120; BP diastolic 55–80; PULSE 51–101; RESP 18; TEMP 35.9–36.8; O2SAT 97–100; BMI 26.6
[2020-02-26] MEDS: fentaNYL citrate/NS 1,000 MCG/100 ML PLAST..BAG 30 MCG IVCONT ×2 (00:31→04:37)
[2020-02-26] MEDS: 0.9 % Sodium Chloride Flush 3 ML SYRINGE 2 ML IVFLUSH ×3 (00:48→23:38)
[2020-02-26] MEDS: propofoL 1,000 MG/100 ML VIAL 21.05 MG IVCONT (00:49)
[2020-02-26] MEDS: Chlorhexidine Gluc Oral Rinse 15 ML MOUTHWASH BUCCAL ×3 (00:49→18:37)
[2020-02-26] MEDS: propofoL 1,000 MG/100 ML VIAL 26.31 MG IVCONT (04:20)
[2020-02-26] MEDS: KCl 20 mEq in 0.45% Sod 20 MEQ/1,000 ML IV.SOLN 100 MEQ IVCONT (04:35)
[2020-02-26] MEDS: vancomycin HCL 1,000 MG in 0.9 % Sodium Chloride 250 ML 180 MG IV ×2 (04:45→13:22)
[2020-02-26 05:43] LABS: MANUAL DIFF FLAG NO
[2020-02-26 05:54] LABS: Base Excess VBG -5.5 mmol/L; HCO3 VBG 19 mmol/L; Oxygen Saturation VBG 94.6 %; PCO2 VBG 32 mmhg; PO2 VBG 77 mmhg; pH VBG 7.39 (7.32-7.43)
[2020-02-26] MEDS: Pantoprazole Sodium 40 MG/10 ML VIAL IVPUSH (05:55)
[2020-02-26] MEDS: dexAMETHasone sod phosphate 4 MG/ML VIAL 6 MG IVPUSH (05:55)
[2020-02-26 06:11] LABS: Anion Gap 10 (12-20); Blood Urea Nitrogen 7 mg/dL (9-16); Calcium 6.4 mg/dL (8.4-10.2); Carbon Dioxide 25 mmol/L (22-29); Chloride 118 mmol/L (96-108); Creatinine Clr Calc Pharmacy 192.3; Estimated Glomerular Filt Rate > 60; Glucose Random 102 mg/dL (60-115); Magnesium 1.5 mg/dL (1.6-2.6); Phosphorus 1.1 mg/dL (2.7-4.5); Potassium 3.9 mmol/l (3.3-5.1); Sodium 149 mmol/L (135-145)
--- NOTE | 2020-02-26 06:33 | MHC.PIE ---
P: Noted drop in H&H TO 8.9 & 27.3. No bleeding noted in secretions, urine, etc. I: Spoke to Dr Mondragon about lab results and significant change. Plan to redraw and confirm levels.
[2020-02-26 07:36] LABS: Complement C3 121 mg/dL (82-185)
[2020-02-26 07:50] LABS: Mean Corpuscular Volume 97.5 fL (80-98); PLT CLUMP 1; Red Cell Distribution Width 13.7 % (11.0-16.0)
[2020-02-26 07:51] LABS: Hematocrit 43.6 % (42-52); Hemoglobin 14.1 g/dl (14.0-18.0); Mean Corpuscular HGB Conc 32.3 g/dl (31.0-36.0); Mean Corpuscular Hemoglobin 31.5 pg (27.0-33.0); Red Blood Count 4.47 X10*6/uL (4.60-5.80); White Blood Count 23.5 X10*3/uL (4.8-10.8)
[2020-02-26] MEDS: fentaNYL citrate/NS 1,000 MCG/100 ML PLAST..BAG 20 MCG IVCONT ×2 (07:54→14:46)
[2020-02-26] MEDS: propofoL 1,000 MG/100 ML VIAL 28.4 MG IVCONT ×5 (07:56→22:26)
[2020-02-26 08:04] LABS: Lactic Acid 1.2 mmol/L (0.5-2.0)
[2020-02-26] MEDS: Albuterol/Iprat 2.5/0.5MG 3 ML AMPUL.NEB INHALE ×3 (08:12→20:02)
[2020-02-26 08:33] LABS: Lactate Dehydrogenase 227 U/L (118-273)
[2020-02-26 08:49] LABS: Band Neutrophils Percent 5 % (3-5); Lymphocytes Absolute Manual 1.6 X10*3/uL (0.6-4.8); Lymphocytes Percent Manual 7 % (20-40); Monocytes Absolute Manual 0.7 X10*3/uL (0.0-1.2); Monocytes Percent Manual 3 % (2-11); Neutrophils Absolute Manual 21.2 X10*3/uL (2.2-7.9); Neutrophils Percent Manual 85 % (45-73)
[2020-02-26 08:50] LABS: Burr Cells 1+; RBC Morphology NOTED
[2020-02-26 08:51] LABS: Ovalocytes 1+; Toxic Vacuolation PRESENT
--- NOTE | 2020-02-26 10:08 | MHC.CM.PN ---
Patient remains intubated/vented in the ICU. Patient is from home without services. Continue to monitor for d/c needs.
--- NOTE | 2020-02-26 10:10 | P.PNCC_ITS ---
Subjective Subjective Date of Service: 02/26/20 Interval History: 39-year-old male presented with a sudden painful swelling in the floor of his mouth and the throat with considerable submandibular warty swelling and was drooling unable to swallow and had urgent intubation for airway protection also on notable and witnessed the aspiration so he does have a pneumonia and did being covered with meropenem because of penicillin allergy and vancomycin but all cultures to date negative clearly septic presentation and today we weaned fentanyl sedation but the due to an agitated delirium he was recent dated so no attempted weaning but we did notice that he was leaking after we took the endotracheal cuff down about half of his tidal volume which is encouraging and that the facial swelling including periorbital edema and is diminish by comparison to yesterday but white count climbed to 23,000 with more of a left shift raising concerns renal function thankfully is stable despite receiving contrast and gadolinium yesterday but all MRI studies of head and neck essentially negative outside of this picture of suppurative submandibular sial adenitis remains on FiO2 of only 30% with minutes ventilatory requirements of 9 L and I have no doubt that if mental status is adequate in the morning he should be weanable from the ventilator Physical Exam Vital Signs and I&O and Narrative: Vital Signs and I&O: Vital Signs Temp 97.9 F 02/26/20 08:00 Pulse 98 02/26/20 09:00 Resp 18 02/26/20 09:00 BP 113/64 02/26/20 09:00 Pulse Ox 97 02/26/20 09:00 Intake & Output 02/25/20 02/26/20 02/26/20 18:59 06:59 18:59 Intake Total 2921.832 / 6197.37 8 3215.546 / 6197.37 8 398.175 / 398.175 Output Total 2480 / 4500 1570 / 4500 850 / 850 Balance 441.832 / 7322.488 5960.546 / 1697.37 8 -451.825 / -451.82 5 Urine Output (Aver age ml/kg/hr) 2.36 1.49 0.82 Weight 87.7 kg 86.6 kg Intake: Intake, Tube Fee ding Amount 100 / 860 700 / 860 120 / 120 Intake, IV Amoun t 2821.832 / 5337.37 8 2515.546 / 5337.37 8 278.175 / 278.175 Meropenem 1 gm In 0.9 % Sodium 200 / 400 200 / 400 Chloride 100 m l @ 100 mls/hr IV Q8H CJ Rx#:[id number] vancomycin HCL 1,000 mg In 0.9 540 / 1080 540 / 1080 % Sodium Chlor afsaneh 250 ml @ 180 mls/hr IV Q8H CJ Rx#: [id number] Dextrose 5 % a nd 0.9 % NaCl 1, 300 / 300 000 ml @ 100 m ls/hr IVCONT . Q10H CJ Rx#:[id number] KCl 20 mEq in 0.45% Sod 20 meq 956.667 / 3143.132 3336 / 1956.667 In 1,000 ml @ 100 mls/hr IVCONT .Q10H CJ Rx#: [id number] Phenylephrine HCL 20 mg In 0.9 208.845 / 446.972 238.127 / 446.972 158.126 / 158.126 % Sodium Chlor afsaneh 250 ml @ Per Protocol IVCON T .Q0M CJ Rx#: [id number] fentaNYL citra te/NS 1,000 mcg 353 / 613.5 260.5 / 613.5 25.333 / 25.333 In 100 ml @ Pe r Protocol IVCONT .Q0M CJ Rx#:[id number] propofoL 1,000 mg In 100 ml @ 263.320 / 540.239 276.919 / 540.239 94.716 / 94.716 Per Protocol I VCONT .Q0M CJ Rx #:[id number] Output: Output, Urine Am ount 595 / 795 200 / 795 Output, Urine Am ount (Catheter) 1885 / 3705 1370 / 3705 850 / 850 Urethral 1885 / 3705 1370 / 3705 850 / 850 Other: NPO Yes Yes Urine moreno Urine Color Yellow Yellow Body Mass Index 26.6 normal skin color with no rashes no decubitus and definitely improved facial and periorbital swelling agitated delirium when coming off sedation today pupils equal and reactive to light and nonfocal neurological coarse breath sounds in a from ventilator cardiac exam with normal S1 and normal S2 with no gallops or murmurs good bilateral carotid upstrokes with no bruits and no neck vein distension persistent with the swelling but possibly a little less involving submandibular spacing gland abdomen benign no bruits no tenderness no organomegaly and good bowel sounds peripheral eat is no edema no acrocyanosis and has good peripheral pulses Objective Data Labs CBC & Chem 7: 02/26/20 07:36 02/26/20 13:39 Labs: Laboratory Results - last 24 hr 02/23/20 02/25/20 02/26/20 20:04 09:47 05:25 WBC RBC Hgb Hct MCV MCH MCHC RDW Plt Count MPV Immature Gran % (Auto) Neut % (Auto) Lymph % (Auto) [place] % (Auto) Eos % (Auto) Baso % (Auto) Lymph # (Auto) [place] # (Auto) Eos # (Auto) Baso # (Auto) Abs Immat Gran (auto) Absolute Neuts (auto) Absolute Nucleated RBC Nucleated RBC % (auto) Neutrophils % (Manual) Band Neutrophils % Lymphocytes % (Manual) Monocytes % (Manual) Abs Neuts (Manual) Lymphocytes # (Manual) Monocytes # (Manual) Toxic Vacuolation Platelet Estimate Plt Morphology Comment RBC Morphology Ovalocytes [place] Cells VBG pH 7.39 VBG pCO2 32 VBG Oxygen Liters/Min Not Reportable VBG pO2 77 VBG HCO3 19 VBG O2 Saturation 94.6 VBG Base Excess -5.5 Sodium Potassium Chloride Carbon Dioxide Anion Gap BUN Creatinine Estim Creat Clear Calc Estimated GFR Random Glucose Lactic Acid Lactic Acid Fup @ 4Hr 2.5 H* Calcium Phosphorus Magnesium Lactate Dehydrogenase Complement C3 121 Complement C4 18 02/26/20 02/26/20 02/26/20 05:26 05:26 07:36 WBC TNP 23.5 H RBC TNP 4.47 L Hgb TNP 14.1 Hct TNP 43.6 MCV TNP 97.5 MCH TNP 31.5 MCHC TNP 32.3 RDW TNP 13.7 Plt Count TNP TNP MPV TNP Not Reportable Immature Gran % (Auto) TNP Cancelled Neut % (Auto) TNP Cancelled Lymph % (Auto) TNP Cancelled Mineral % (Auto) TNP Cancelled Eos % (Auto) TNP Cancelled Baso % (Auto) TNP Cancelled Lymph # (Auto) TNP Cancelled Mineral # (Auto) TNP Cancelled Eos # (Auto) TNP Cancelled Baso # (Auto) TNP Cancelled Abs Immat Gran (auto) TNP Cancelled Absolute Neuts (auto) TNP Cancelled Absolute Nucleated RBC TNP 0.000 Nucleated RBC % (auto) TNP 0.0 Neutrophils % (Manual) 85 H Band Neutrophils % 5 Lymphocytes % (Manual) 7 L Monocytes % (Manual) 3 Abs Neuts (Manual) 21.2 H Lymphocytes # (Manual) 1.6 Monocytes # (Manual) 0.7 Toxic Vacuolation PRESENT Platelet Estimate TNP Plt Morphology Comment TNP RBC Morphology NOTED Ovalocytes 1+ [place] Cells 1+ VBG pH VBG pCO2 VBG Oxygen Liters/Min VBG pO2 VBG HCO3 VBG O2 Saturation VBG Base Excess Sodium 149 H Potassium 3.9 Chloride 118 H Carbon Dioxide 25 Anion Gap 10 L BUN 7 L Creatinine 0.56 Estim Creat Clear Calc 192.3 Estimated GFR > 60 Random Glucose 102 Lactic Acid Lactic Acid Fup @ 4Hr Calcium 6.4 L Phosphorus 1.1 L Magnesium 1.5 L Lactate Dehydrogenase Complement C3 Complement C4 02/26/20 02/26/20 07:36 07:36 WBC RBC Hgb Hct MCV MCH MCHC RDW Plt Count MPV Immature Gran % (Auto) Neut % (Auto) Lymph % (Auto) [place] % (Auto) Eos % (Auto) Baso % (Auto) Lymph # (Auto) [place] # (Auto) Eos # (Auto) Baso # (Auto) Abs Immat Gran (auto) Absolute Neuts (auto) Absolute Nucleated RBC Nucleated RBC % (auto) Neutrophils % (Manual) Band Neutrophils % Lymphocytes % (Manual) Monocytes % (Manual) Abs Neuts (Manual) Lymphocytes # (Manual) Monocytes # (Manual) Toxic Vacuolation Platelet Estimate Plt Morphology Comment RBC Morphology Ovalocytes [place] Cells VBG pH VBG pCO2 VBG Oxygen Liters/Min VBG pO2 VBG HCO3 VBG O2 Saturation VBG Base Excess Sodium Potassium Chloride Carbon Dioxide Anion Gap BUN Creatinine Estim Creat Clear Calc Estimated GFR Random Glucose Lactic Acid 1.2 Lactic Acid Fup @ 4Hr Calcium Phosphorus Magnesium Lactate Dehydrogenase 227 Complement C3 Complement C4 Microbiology Microbiology Results: Microbiology 02/25/20 07:48 Sputum - Suctioned Sputum Culture - Preliminary Culture in progress. 02/25/20 07:48 Urine Catheterized - Moreno Catheter Urine Culture - Final No growth. 02/25/20 04:44 Blood - Venous Blood Culture - Preliminary No growth after 24 hours. 02/25/20 04:45 Blood - Venous Blood Culture - Preliminary No growth after 24 hours. Progress Note: A&P Assessment and plan (1) Aspiration of gastric contents: Status: Acute (2) Submandibular gland inflammation: Status: Acute (3) Ludwigs angina: Problem details: He is on ventilator and has possible anerobes,gram negatives concern Good medication is penicillin,no h/o allergy as adult,tolerated at [facility] for prior scrotal and groin area Less likely COVID concerns thus far all the imaging seems to point to a suppurative submandibular adenitis as well as aspiration pneumonitis and coverage continues to include meropenem and vancomycin without complication Status: Acute (4) Ludwigs angina: Status: Acute (5) Anaphylaxis: Status: Acute (6) Respiratory failure: Status: Acute (7) Allergic angioedema: Status: Acute (8) Hypocalcemia: Status: Acute (9) Hypomagnesemia: Status: Acute (10) Hypophosphatemia: Status: Acute Assessment and Plan: recent dated antibiotics remain untouched he continues on tube feedings and because of the mild hypernatremia we will recheck labs in the afternoon after repleting magnesium and calcium and phosphorus and again attempt to wean sedation in the morning and evaluate cognitive function Time Spent With Patient Time: Total time spent is greater than 50% in coordination of care (as documented) at patient's floor/unit and/or counseling patient: Time with patient: 25 - 35 minutes
[2020-02-26] MEDS: Lactulose 20 GM/30 ML SOLUTION 10 GM G-TUBE (10:33)
[2020-02-26] MEDS: Magnesium Sulfate/D5W 1 GM/100 ML PIGGYBACK IV (10:34)
[2020-02-26] MEDS: Calcium Gluconate/NaCl,Iso-Osm 1 GM/50 ML PLAST..BAG IV (10:34)
[2020-02-26] MEDS: Dextrose 5 % 1,000 ML 50 ML IVCONT (10:36)
[2020-02-26 14:20] LABS: Alanine Aminotransferase 47 U/L (0-40); Albumin Level 3.4 g/dL (3.5-5.0); Alkaline Phosphatase 85 U/L (39-117); Anion Gap 14 (12-20); Aspartate Amino Transferase 41 U/L (5-37); Bilirubin Total 0.4 mg/dL (0.0-1.0); Blood Urea Nitrogen 9 mg/dL (9-16); Calcium 8.8 mg/dL (8.4-10.2); Carbon Dioxide 22 mmol/L (22-29); Chloride 113 mmol/L (96-108); Creatinine Clr Calc Pharmacy 139.8; Estimated Glomerular Filt Rate > 60; Glucose Random 163 mg/dL (60-115); Magnesium 2.3 mg/dL (1.6-2.6); Phosphorus 2.9 mg/dL (2.7-4.5); Potassium 4.6 mmol/l (3.3-5.1); Sodium 144 mmol/L (135-145); Total Protein 5.8 g/dL (6.5-8.0)
[2020-02-26 15:18] LABS: Vancomycin Trough 23.7 mcg/mL (10.0-20.0)
--- NOTE | 2020-02-26 15:27 | PC.NURSE ---
SE AFEBRILE SB OFF PRADEEP VENTED AC SETTINGS FAILED BRIEF PS TRIAL THIS AM OFF SEDATION TUBE FEEDS HELD R/T RESIDUAL U/O EXCELLENT SKIN WNL 2 ADDITIONAL IV STARTED #20 GIVEN MG, CA AND K- PHOS REPLACEMENT INTO VISIT
[2020-02-26 18:25] LABS: Immunoglobulin A 122 mg/dL (47-310); Immunoglobulin G 920 mg/dL (600-1640)
[2020-02-26] MEDS: LORazepam 2 MG/ML VIAL 1 MG IVPUSH (23:42)
[2020-02-27] VITALS (26 sets, daily range): BP systolic 92–144; BP diastolic 53–90; PULSE 52–127; RESP 9–18; TEMP 36.5–37.3; O2SAT 93–100; BMI 28.3
--- NOTE | 2020-02-27 | XR_ITS ---
EXAMINATION: XR CHEST CLINICAL INFORMATION: Status post extubation. COMPARISON: Prior chest radiographs, most recently 02/25/2020. TECHNIQUE: Frontal view of the chest was obtained. FINDINGS: The heart, great vessels, pulmonary vasculature mediastinum are stable. Previously seen right base airspace disease appears largely resolved. There is no new infiltrate, effusion or pneumothorax. No acute osseous abnormality is seen. IMPRESSION: No definite infiltrate is presently seen. The previously seen right base infiltrate appears largely resolved on this AP portable view.
[2020-02-27] MEDS: fentaNYL citrate/NS 1,000 MCG/100 ML PLAST..BAG 20 MCG IVCONT ×2 (00:47→06:14)
[2020-02-27] MEDS: Phenylephrine HCL 20 MG in 0.9 % Sodium Chloride 250 ML 13.5 MG IVCONT (01:27)
[2020-02-27] MEDS: propofoL 1,000 MG/100 ML VIAL 28.4 MG IVCONT (01:30)
[2020-02-27] MEDS: Chlorhexidine Gluc Oral Rinse 15 ML MOUTHWASH BUCCAL (02:27)
[2020-02-27] MEDS: propofoL 1,000 MG/100 ML VIAL 25.98 MG IVCONT (04:43)
[2020-02-27 05:47] LABS: MANUAL DIFF FLAG NO
[2020-02-27 05:53] LABS: Basophils Percent Auto 0.2 % (0-2); Eosinophils Percent Auto 0.2 % (0-4); Hematocrit 40.8 % (42-52); Hemoglobin 13.2 g/dl (14.0-18.0); Imm Gran Abs Auto 0.11 X10*3/uL (0.00-0.03); Imm Gran Pct Auto 0.7 % (0.0-0.4); Lymphocytes Absolute Auto 1.5 X10*3/uL (1.2-4.9); Lymphocytes Percent Auto 9.3 % (20-40); Mean Corpuscular HGB Conc 32.4 g/dl (31.0-36.0); Mean Corpuscular Hemoglobin 31.4 pg (27.0-33.0); Mean Corpuscular Volume 97.1 fL (80-98); Mean Platelet Volume 9.6 fL (9.4-12.4); Monocytes Absolute Auto 0.9 X10*3/uL (0.1-1.2); Monocytes Percent Auto 5.4 % (2-11); Neutrophils Absolute Auto 13.8 X10*3/uL (2.0-8.3); Neutrophils Percent Auto 84.2 % (45-73); Platelet Count 245 X10*3/uL (160-400); Red Cell Distribution Width 13.5 % (11.0-16.0); White Blood Count 16.4 X10*3/uL (4.8-10.8)
[2020-02-27 05:57] LABS: Base Excess VBG 5.9 mmol/L; Blood Gas Serial # 5396; HCO3 VBG 30 mmol/L; Oxygen Saturation VBG 96.2 %; PCO2 VBG 43 mmhg; PO2 VBG 84 mmhg; pH VBG 7.47 (7.32-7.43)
[2020-02-27 06:20] LABS: Lactic Acid 0.9 mmol/L (0.5-2.0)
[2020-02-27 06:25] LABS: Alanine Aminotransferase 87 U/L (0-40); Albumin Level 3.2 g/dL (3.5-5.0); Alkaline Phosphatase 81 U/L (39-117); Anion Gap 10 (12-20); Aspartate Amino Transferase 48 U/L (5-37); Bilirubin Total 0.4 mg/dL (0.0-1.0); Blood Urea Nitrogen 12 mg/dL (9-16); Calcium 8.6 mg/dL (8.4-10.2); Carbon Dioxide 30 mmol/L (22-29); Chloride 109 mmol/L (96-108); Creatinine Clr Calc Pharmacy 169.9; Estimated Glomerular Filt Rate > 60; Glucose Random 104 mg/dL (60-115); Magnesium 2.1 mg/dL (1.6-2.6); Phosphorus 2.9 mg/dL (2.7-4.5); Potassium 3.4 mmol/l (3.3-5.1); Sodium 146 mmol/L (135-145); Total Protein 5.3 g/dL (6.5-8.0)
[2020-02-27] MEDS: Pantoprazole Sodium 40 MG/10 ML VIAL IVPUSH (06:39)
[2020-02-27] MEDS: dexAMETHasone sod phosphate 4 MG/ML VIAL 6 MG IVPUSH (06:39)
[2020-02-27] MEDS: Albuterol/Iprat 2.5/0.5MG 3 ML AMPUL.NEB INHALE ×4 (08:08→19:46)
[2020-02-27 09:31] LABS: Base Excess VBG 2.9 mmol/L; HCO3 VBG 30 mmol/L; Oxygen Saturation VBG 93.6 %; PCO2 VBG 54 mmhg; PO2 VBG 69 mmhg; pH VBG 7.36 (7.32-7.43)
--- NOTE | 2020-02-27 09:33 | PC.NURSE ---
SELF EXTUBATED DESPITE STAFF AT BEDSIDE CRYING STATING I AM CHOKING HOWEVER RR WAS IN THE THE TEENS LOW TWENTIES SR, ST O2 SATURATION WNL PRESENTLY ON ROOM AIR NO STRIDOR OR RESP DISTRESS NO WHEEZING + STRONG COUGH EXPECTORATING THICK GREEN/ BROWN SPUTUM SEE CHART FOR CURRENT VITAL SIGNS EPI UPDRAFT IN PROGRESS PER DR MACIAS
[2020-02-27] MEDS: Racepinephrine HCL 0.5 ML VIAL.NEB INHALE (09:45)
--- NOTE | 2020-02-27 09:48 | PM.CCPN ---
Subjective Subjective Date of Service: 02/27/20 Interval History: 39-year-old male who presented with a suppurative submandibular gland inflammation with threatened airway requiring intubation and was also noted to have copious vomiting and what appears to be an aspiration pneumonitis and this morning he did awaken although with diminished cognitive function he still was able to maintain eye contact and nod in acknowledgement of your present so was a definite improvement with superb tidal volumes of 750 cc on just 10 cm water airway pressure sustaining that for a while and the hope was he would awaken a little further before extubation but he started to pull out the endotracheal tube so he was extubated and he had some hoarseness even though he had an excellent volume leak when the cuff was down before hand we gave him racemic epinephrine treatment and he responded very well currently on nasal cannula saturations 97% blood pressure 120/80 respiratory rate 8 to 10 heart rate 86 in sinus rhythm and post extubation chest x-ray very clear substantial [place] [id number] and he was mildly hypernatremic and hypokalemic and is being treated with D5 half-normal with 20 mEq of K Cl per L Physical Exam Vital Signs and I&O and Narrative: Vital Signs and I&O: Vital Signs Temp 99.0 F 02/27/20 09:37 Pulse 95 02/27/20 09:37 Resp 9 L 02/27/20 09:37 BP 138/88 02/27/20 09:37 Pulse Ox 99 02/27/20 08:07 Intake & Output 02/26/20 02/27/20 02/27/20 18:59 06:59 18:59 Intake Total 2465.408 / 4597.08 4 2111.676 / 4597.08 4 324.333 / 324.333 Output Total 2425 / 3560 1100 / 3560 185 / 185 Balance 40.408 / 9733.235 3606.676 / 1037.08 4 139.333 / 139.333 Urine Output (Aver age ml/kg/hr) 2.33 1.00 0.17 Weight 86.6 kg 92 kg Intake: Intake, Oral [place] unt 0 / 0 Intake, Tube Fee ding Amount 120 / 280 140 / 280 20 / 20 Intake, Tube Irr igant Amount 30 / 30 Intake, Other Am ount 60 / 60 Intake, IV Amoun t 2315.408 / 4227.08 4 1911.676 / 4227.08 4 304.333 / 304.333 Calcium Glucon ate/NaCl,Iso-Osm 50 / 50 1 gm In 50 ml @ 50 mls/hr IV ONCE ONE Rx#:[id number] Magnesium Sulf ate/D5W 1 gm In 100 / 100 100 ml @ 200 m ls/hr IV ONCE ONE Rx#:[id number] Meropenem 1 gm In 0.9 % Sodium 100 / 300 200 / 300 Chloride 100 m l @ 100 mls/hr IV Q8H CJ Rx#:[id number] Potassium Phos phate/NS 15 mmol 393.4 / 893.4 500 / 893.4 In 500 ml @ 83 .333 mls/hr IV Q6H CJ Rx#:[id number] vancomycin HCL 1,000 mg In 0.9 270 / 270 % Sodium Chlor afsaneh 250 ml @ 180 mls/hr IV Q8H CJ Rx#: [id number] vancomycin HCL 750 mg 275 / 275 275 / 275 vancomycin HCL 500 mg In 0.9 % Sodium Chlorid e 250 ml @ 183. 333 mls/hr IV Q8H CJ Rx#: [id number] Dextrose 5 % 1 ,000 ml @ 50 mls/ 0 / 474.167 474.167 / 474.167 hr IVCONT .Q20 H CJ Rx#: [id number] KCl 20 mEq in 0.45% Sod 20 meq 638.333 / 638.333 In 1,000 ml @ 100 mls/hr IVCONT .Q10H CJ Rx#: [id number] Phenylephrine HCL 20 mg In 0.9 243.626 / 250.846 7.220 / 250.846 % Sodium Chlor afsaneh 250 ml @ Per Protocol IVCON T .Q0M CJ Rx#: [id number] fentaNYL citra te/NS 1,000 mcg 125.333 / 325.333 200 / 325.333 29.333 / 29.333 In 100 ml @ Pe r Protocol IVCONT .Q0M CJ Rx#:[id number] propofoL 1,000 mg In 100 ml @ 394.716 / 650.005 255.289 / 650.005 Per Protocol I VCONT .Q0M CJ Rx #:[id number] Output: Output, Urine Am ount (Catheter) 2425 / 3560 1100 / 3560 185 / 185 Urethral 2425 / 3560 1100 / 3560 185 / 185 Other: Urine Color Yellow Yellow Body Mass Index 28.3 by exam he is awake but somewhat distant but I would say over the hours improving and utilizing a net lead architect they claim he completely understands our conversation skin is clear no wounds no rash neurologically symmetric no focal findings good bilateral carotid upstrokes no bruits no neck vein distension abdomen is benign no bruits no tenderness no organomegaly chest percussed equally no clinical pleural effusion no event issues soun ds cardiac exam with a normal S1 normal S2 no gallops or murmurs Objective Data Labs CBC & Chem 7: 02/27/20 05:35 02/27/20 05:35 Labs: Laboratory Results - last 24 hr 02/24/20 02/26/20 02/26/20 13:48 11:36 13:39 WBC RBC Hgb Hct MCV MCH MCHC RDW Plt Count MPV Immature Gran % (Auto) Neut % (Auto) Lymph % (Auto) [place] % (Auto) Eos % (Auto) Baso % (Auto) Lymph # (Auto) [place] # (Auto) Eos # (Auto) Baso # (Auto) Abs Immat Gran (auto) Absolute Neuts (auto) Absolute Nucleated RBC Nucleated RBC % (auto) VBG pH VBG pCO2 VBG Oxygen Liters/Min VBG pO2 VBG HCO3 VBG O2 Saturation VBG Base Excess Sodium 144 Potassium 4.6 Chloride 113 H Carbon Dioxide 22 Anion Gap 14 BUN 9 Creatinine 0.77 Estim Creat Clear Calc 139.8 Estimated GFR > 60 Random Glucose 163 H D Lactic Acid Calcium 8.8 Phosphorus 2.9 Magnesium 2.3 Total Bilirubin 0.4 AST 41 H ALT 47 H Alkaline Phosphatase 85 Total Protein 5.8 L Albumin 3.4 L Vancomycin Trough 11.0 IgG 920 IgA 122 02/26/20 02/27/20 02/27/20 13:39 05:35 05:35 WBC 16.4 H RBC 4.20 L Hgb 13.2 L Hct 40.8 L MCV 97.1 MCH 31.4 MCHC 32.4 RDW 13.5 Plt Count 245 MPV 9.6 Immature Gran % (Auto) 0.7 H Neut % (Auto) 84.2 H Lymph % (Auto) 9.3 L [place] % (Auto) 5.4 Eos % (Auto) 0.2 Baso % (Auto) 0.2 Lymph # (Auto) 1.5 [place] # (Auto) 0.9 Eos # (Auto) 0.0 Baso # (Auto) 0.0 Abs Immat Gran (auto) 0.11 H Absolute Neuts (auto) 13.8 H Absolute Nucleated RBC 0.000 Nucleated RBC % (auto) 0.0 VBG pH VBG pCO2 VBG Oxygen Liters/Min VBG pO2 VBG HCO3 VBG O2 Saturation VBG Base Excess Sodium 146 H Potassium 3.4 D Chloride 109 H Carbon Dioxide 30 H Anion Gap 10 L BUN 12 Creatinine 0.69 Estim Creat Clear Calc 169.9 Estimated GFR > 60 Random Glucose 104 D Lactic Acid Calcium 8.6 Phosphorus 2.9 Magnesium 2.1 Total Bilirubin 0.4 AST 48 H ALT 87 H Alkaline Phosphatase 81 Total Protein 5.3 L Albumin 3.2 L Vancomycin Trough 23.7 H IgG IgA 02/27/20 02/27/20 02/27/20 05:35 05:35 09:18 WBC RBC Hgb Hct MCV MCH MCHC RDW Plt Count MPV Immature Gran % (Auto) Neut % (Auto) Lymph % (Auto) [place] % (Auto) Eos % (Auto) Baso % (Auto) Lymph # (Auto) [place] # (Auto) Eos # (Auto) Baso # (Auto) Abs Immat Gran (auto) Absolute Neuts (auto) Absolute Nucleated RBC Nucleated RBC % (auto) VBG pH 7.47 H 7.36 VBG pCO2 43 54 VBG Oxygen Liters/Min Not Reportable VBG pO2 84 69 VBG HCO3 30 30 VBG O2 Saturation 96.2 93.6 VBG Base Excess 5.9 2.9 Sodium Potassium Chloride Carbon Dioxide Anion Gap BUN Creatinine Estim Creat Clear Calc Estimated GFR Random Glucose Lactic Acid 0.9 Calcium Phosphorus Magnesium Total Bilirubin AST ALT Alkaline Phosphatase Total Protein Albumin Vancomycin Trough IgG IgA Microbiology Microbiology Results: Microbiology 02/25/20 04:44 Blood - Venous Blood Culture - Preliminary No growth after 48 hours. 02/25/20 04:45 Blood - Venous Blood Culture - Preliminary No growth after 48 hours. 02/25/20 07:48 Sputum - Suctioned Gram Stain - Final 02/25/20 07:48 Sputum - Suctioned Sputum Culture - Preliminary Culture in progress. 02/25/20 07:48 Urine Catheterized - Dixon Catheter Urine Culture - Final No growth. Progress Note: A&P Assessment and plan (1) Hypophosphatemia: Status: Acute (2) Hypomagnesemia: Status: Acute (3) Hypocalcemia: Status: Acute (4) Aspiration of gastric contents: Status: Acute (5) Submandibular gland inflammation: Status: Acute (6) Ludwigs angina: Problem details: He is on ventilator and has possible anerobes,gram negatives concern Good medication is penicillin,no h/o allergy as adult,tolerated at [facility] for prior scrotal and groin area Less likely COVID concerns thus far all the imaging seems to point to a suppurative submandibular adenitis as well as aspiration pneumonitis and coverage continues to include meropenem and vancomycin without complication Status: Acute (7) Ludwigs angina: Status: Acute (8) Anaphylaxis: Status: Acute (9) Respiratory failure: Status: Acute (10) Allergic angioedema: Status: Acute Assessment and Plan: post extubation the racemic epinephrine considerably calmed the sensation that he had and currently Debora is much diminished wheezing respiratory rate and effort very comfortable sinus rate is coming down and he remains afebrile so I will continue antibiotics and steroids as above and get a swallow evaluation Time Spent With Patient Time: Total time spent is greater than 50% in coordination of care (as documented) at patient's floor/unit and/or counseling patient: Time with patient: 25 - 35 minutes No Severe Sepsis: No Severe Sepsis
--- NOTE | 2020-02-27 10:03 | MHC.CM.PN ---
Patient remains in ICU. Extubated this morning. Patient is from home without services. Continue to monitor for d/c needs.
--- NOTE | 2020-02-27 10:40 | MHC.CLN ---
follow up: pt self extubated today if diet to advance; recommend regular
[2020-02-27] MEDS: KCl 20 mEq in 5% Dex/0.45% Sod 20 MEQ/1,000 ML IV.SOLN 42 MEQ IVCONT (13:21)
--- NOTE | 2020-02-27 14:52 | PC.NURSE ---
SE SR,ST NO RESP C/O 2L NC PT HAS VOMITED OR RETCHED SEVERAL TIMES MD AWARE VSS OOB TO RECLINER IVF STARTED U/O WNL NO BM SKIN WNL AND MOTHER INTO VISIT REMAINS ON ABT
[2020-02-27] MEDS: 0.9 % Sodium Chloride Flush 3 ML SYRINGE 2 ML IVFLUSH ×2 (15:40→23:33)
[2020-02-27] MEDS: ondansetron HCL 4 MG/2 ML VIAL IVPUSH (18:38)
[2020-02-27 21:42] LABS: Vancomycin Trough 11.8 mcg/mL (10.0-20.0)
[2020-02-27] MEDS: Metoclopramide HCl 10 MG/2 ML VIAL IVPUSH (23:33)
[2020-02-28] VITALS (19 sets, daily range): BP systolic 103–147; BP diastolic 44–98; PULSE 70–122; RESP 11–18; TEMP 36.2–37.8; O2SAT 94–99; BMI 27.1
--- NOTE | 2020-02-28 | CT_ITS ---
EXAMINATION: CT ABDOMEN AND PELVIS WITHOUT CONTRAST CLINICAL INFORMATION: Nausea and vomiting. Increase in liver function tests. COMPARISON: Abdomen ultrasound from 02/28/2020. TECHNIQUE: Multidetector volumetric imaging was performed from the superior aspect of the liver through the pubic symphysis. Sagittal and coronal reformatted images were obtained on the technologist's workstation. This CT examination was performed using dose optimization techniques as appropriate, variously including the following: *Automated exposure control *Adjustment of mA and/or kV according to patient size (this includes techniques or standardized protocols for targeted exams where dose is matched to indication/reason for exam; i.e. extremities or head) *Use of iterative reconstruction technique DLP: 1122 mGy-cm FINDINGS: LUNG BASES: Peripheral linear and somewhat fan-shaped opacities of atelectasis in dependent aspect of each lower lobe. No pleural effusion. LIVER: Liver has normal size and contour. Liver parenchyma is diffusely hypodense from steatosis (or steatohepatitis). On these noncontrast images, there is no evidence of focal liver lesion. GALLBLADDER AND BILIARY TREE: Gallbladder is physiologically distended. No gallbladder wall thickening or pericholecystic fluid. There appears to be sludge within the gallbladder lumen. No calcified stones. PANCREAS: Unremarkable. SPLEEN: Unremarkable. ADRENAL GLANDS: Unremarkable. KIDNEYS AND URETERS: The kidneys are normal in size. No hydroureteronephrosis, urolithiasis or perinephric fluid collection. No evidence of renal mass. BOWEL AND PERITONEUM: Stomach is unremarkable. No dilated loops of bowel. The appendix is normal. No overt bowel wall thickening or mesenteric fat stranding. No ascites or pneumoperitoneum. ABDOMINAL WALL: Unremarkable. LYMPH NODES: No pathologic sized lymph nodes in the abdomen or pelvis. No inguinal lymphadenopathy. VASCULATURE: Unremarkable. BLADDER AND PELVIC VISCERA: The urinary bladder is decompressed by Dixon catheter. No evidence of bladder wall thickening or mass. Prostate gland is unremarkable. SKELETAL: Unremarkable. IMPRESSION: * No CT imaging evidence of cholelithiasis, cholecystitis or biliary tract obstruction. * Liver parenchyma is diffusely hypodense from steatosis (or steatohepatitis). * Atelectasis in each lower lobe.
--- NOTE | 2020-02-28 | US_ITS ---
EXAMINATION: US ABDOMEN LIMITED-PORTABLE IN ICU CLINICAL INFORMATION: Elevated LFT. COMPARISON: None TECHNIQUE: Real-time imaging of the right upper quadrant abdominal viscera. FINDINGS: PANCREAS: Normal. LIVER: Mild diffuse heterogeneous abnormal increased echotexture is present, consistent with diffuse liver disease, likely hepatic steatosis. Subtle hypoechogenicity is noted in the gallbladder bed without any mass effect, likely represent focal area of fatty sparing. GALLBLADDER: Low-level intraluminal echoes are present, most consistent with gallbladder sludge. No definite evidence of any calculi. COMMON BILE DUCT: Normal in caliber measuring 0.4 cm in diameter. RIGHT KIDNEY: Normal. No hydronephrosis. No renal calculi or focal parenchymal lesions. The kidney measures 11.6 cm in maximum dimension. FREE FLUID: None. IMPRESSION: 1. Mild diffuse heterogeneous abnormal increased echotexture is present within the liver, consistent with diffuse liver disease likely secondary to hepatic steatosis with possible focal area of fatty sparing around the gallbladder bed. 2. Low-level internal echoes are noted within the gallbladder lumen, most consistent with gallbladder sludge. No sonographic evidence of definite gallstone or biliary obstruction. 3. Sonographically unremarkable pancreas, and right kidney.
[2020-02-28] MEDS: dexAMETHasone sod phosphate 4 MG/ML VIAL 6 MG IVPUSH (05:04)
[2020-02-28 05:29] LABS: MANUAL DIFF FLAG NO
[2020-02-28] MEDS: Pantoprazole Sodium 40 MG/10 ML VIAL IVPUSH ×2 (05:30→16:09)
[2020-02-28 05:36] LABS: Basophils Percent Auto 0.3 % (0-2); Eosinophils Percent Auto 0.3 % (0-4); Hemoglobin 13.8 g/dl (14.0-18.0); Imm Gran Abs Auto 0.07 X10*3/uL (0.00-0.03); Imm Gran Pct Auto 0.5 % (0.0-0.4); Lymphocytes Absolute Auto 1.5 X10*3/uL (1.2-4.9); Lymphocytes Percent Auto 10.8 % (20-40); Mean Corpuscular HGB Conc 32.9 g/dl (31.0-36.0); Mean Corpuscular Hemoglobin 31.4 pg (27.0-33.0); Mean Corpuscular Volume 95.7 fL (80-98); Mean Platelet Volume 9.6 fL (9.4-12.4); Monocytes Absolute Auto 0.9 X10*3/uL (0.1-1.2); Neutrophils Absolute Auto 11.7 X10*3/uL (2.0-8.3); Neutrophils Percent Auto 82.1 % (45-73); Platelet Count 279 X10*3/uL (160-400); Red Blood Count 4.39 X10*6/uL (4.60-5.80); Red Cell Distribution Width 12.9 % (11.0-16.0); White Blood Count 14.3 X10*3/uL (4.8-10.8)
[2020-02-28 05:54] LABS: Base Excess VBG 6.2 mmol/L; HCO3 VBG 31 mmol/L; Oxygen Saturation VBG 96.6 %; PCO2 VBG 46 mmhg; PO2 VBG 122 mmhg; pH VBG 7.45 (7.32-7.43)
[2020-02-28 07:04] LABS: Alanine Aminotransferase 163 U/L (0-40); Albumin Level 3.8 g/dL (3.5-5.0); Alkaline Phosphatase 103 U/L (39-117); Anion Gap 11 (12-20); Aspartate Amino Transferase 83 U/L (5-37); Bilirubin Total 1.3 mg/dL (0.0-1.0); Blood Urea Nitrogen 21 mg/dL (9-16); Carbon Dioxide 33 mmol/L (22-29); Chloride 105 mmol/L (96-108); Creatinine Clr Calc Pharmacy 141.7; Estimated Glomerular Filt Rate > 60; Glucose Random 89 mg/dL (60-115); Magnesium 2.1 mg/dL (1.6-2.6); Phosphorus 3.4 mg/dL (2.7-4.5); Potassium 3.9 mmol/l (3.3-5.1); Sodium 145 mmol/L (135-145); Total Protein 6.1 g/dL (6.5-8.0)
[2020-02-28 07:27] LABS: Calcium 9.3 mg/dL (8.4-10.2)
[2020-02-28] MEDS: Albuterol/Iprat 2.5/0.5MG 3 ML AMPUL.NEB INHALE ×4 (08:06→20:09)
[2020-02-28] MEDS: 0.9 % Sodium Chloride Flush 3 ML SYRINGE 2 ML IVFLUSH ×2 (08:28→16:09)
[2020-02-28] MEDS: dexAMETHasone sod phosphate 4 MG/ML VIAL IVPUSH (08:28)
[2020-02-28 13:41] LABS: Haptoglobin 214 mg/dL (43-212)
[2020-02-28] MEDS: KCl 20 mEq in 5% Dex/0.45% Sod 20 MEQ/1,000 ML IV.SOLN 42 MEQ IVCONT (14:28)
--- NOTE | 2020-02-28 14:37 | P.PNCC_ITS ---
Subjective Subjective Date of Service: 02/28/20 Interval History: 39-year-old male presented with a suppurative submandibular process which is now clinically resolving with improvement in airway diameter and also aspiration pneumonitis also improving did virtually gone on chest on x- ray and weaned 24 hours ago from the ventilator and gradually restoring cognitive function and yesterday's intractable nausea vomiting and today seems to be resolving and he is tolerating clear liquids he had a small elevation in temperature of 99.7? at peak and had remained on meropenem and vancomycin but we noted that there was a small increase in liver transaminases as well as alkaline phosphatase and total bilirubin raising concerns for the gallbladder but the imaging with combined modalities just indicated some mild gallbladder sludge but no evidence of cholecystitis but he has a a liver at texture consistent with steatosis and there might be an element of cholestatic difficulty related to medicine so I stopped meropenem renal function remains well preserved his white count continues to come down blood gas remains excellent Physical Exam Vital Signs: Vital Signs: Vital Signs Temp Pulse Resp BP Pulse Ox 02/28/20 14:00 99.7 F 91 16 129/83 96 02/28/20 13:00 99.7 F 91 13 123/85 96 02/28/20 12:00 99.7 F 92 16 135/89 97 02/28/20 11:00 99.5 F 103 H 12 129/84 97 02/28/20 10:00 99.5 F 96 11 L 122/85 97 02/28/20 06:00 99.0 F 76 16 115/72 02/28/20 05:00 99.3 F 92 18 115/74 97 02/28/20 04:00 99.1 F 70 16 118/71 99 02/28/20 03:00 99.1 F 84 16 118/68 98 02/28/20 02:00 99.5 F 84 16 103/67 99 02/28/20 01:00 99.5 F 74 16 116/44 L 99 02/28/20 00:00 99.9 F 122 H 18 146/98 H 96 02/27/20 22:49 112 H 12 122/80 100 02/27/20 21:44 95 14 133/79 98 02/27/20 21:00 97 14 129/86 97 02/27/20 19:50 99.1 F 90 16 125/86 97 02/27/20 19:00 114 H 16 117/70 96 02/27/20 18:00 115 H 12 144/81 H 96 02/27/20 16:51 104 H 18 119/59 L 99 02/27/20 15:56 98.2 F 100 18 132/89 96 02/27/20 15:00 90 14 128/79 96 Body Mass Index 27.1 Const: General: cooperative, no acute distress and lethargic Nutritional Appearance: average body habitus Orientation/consciousness: oriented to person, oriented to place and lethargic HENMT: Head: Yes normal to inspection Face and sinus: Yes normal facial exam Mouth: Normal oral and palatal mucosa present Eyes: General: appearance normal, both eyes and all related structures Pupi ls: Equal, round and reactive pupils present and Pupil size comments Neck: Neck: Yes normal visual inspection, Yes full ROM and Yes no lymphadenopathy Carotids: normal carotid upstroke Lymphatic: no lymphaden opathy noted Chest: Chest palpation & inspection: normal inspection of the chest and normal palpation of entire chest wall Resp: Effort & Inspection: normal respiratory effort and able to speak in complete sentences Auscultation: clear to auscultation bilaterally Percussion: percussion normal Cardio: Jugular venous distension: no JVD Palpation: normal PMI Rate: regular rate Rhythm: regular rhythm Heart sounds: S1 normal heart sound present and S2 normal heart sound present GI: Inspection: Yes normal to inspection Palpation (GI): Soft to palpation and No hepatosplenomegaly present Auscultation: normal bowel sounds and normoactive bowel sounds Skin: General skin exam: no rashes or lesions noted Neuro: General: oriented to person and oriented to place Cranial nerves: Yes CN's II-XII intact bilaterally and Yes Equal, round and reactive pupils present Cognition (Neuro): normal cognition Extrem: General: Yes normal to inspection, Yes full ROM, Yes normal exam except as noted and Yes no pedal edema Objective Data Labs CBC & Chem 7: 02/28/20 05:16 02/28/20 05:16 Labs: Laboratory Results - last 24 hr 02/26/20 02/27/20 02/28/20 07:36 20:00 05:16 WBC 14.3 H RBC 4.39 L Hgb 13.8 L Hct 42.0 MCV 95.7 MCH 31.4 MCHC 32.9 RDW 12.9 Plt Count 279 MPV 9.6 Immature Gran % (Auto) 0.5 H Neut % (Auto) 82.1 H Lymph % (Auto) 10.8 L [place] % (Auto) 6.0 Eos % (Auto) 0.3 Baso % (Auto) 0.3 Lymph # (Auto) 1.5 [place] # (Auto) 0.9 Eos # (Auto) 0.0 Baso # (Auto) 0.0 Abs Immat Gran (auto) 0.07 H Absolute Neuts (auto) 11.7 H Absolute Nucleated RBC 0.000 Nucleated RBC % (auto) 0.0 Haptoglobin 214 H VBG pH VBG pCO2 VBG Oxygen Liters/Min VBG pO2 VBG HCO3 VBG O2 Saturation VBG Base Excess Sodium Potassium Chloride Carbon Dioxide Anion Gap BUN Creatinine Estim Creat Clear Calc Estimated GFR Random Glucose Calcium Phosphorus Magnesium Total Bilirubin AST ALT Alkaline Phosphatase Total Protein Albumin Vancomycin Trough 11.8 02/28/20 02/28/20 05:16 05:16 WBC RBC Hgb Hct MCV MCH MCHC RDW Plt Count MPV Immature Gran % (Auto) Neut % (Auto) Lymph % (Auto) [place] % (Auto) Eos % (Auto) Baso % (Auto) Lymph # (Auto) [place] # (Auto) Eos # (Auto) Baso # (Auto) Abs Immat Gran (auto) Absolute Neuts (auto) Absolute Nucleated RBC Nucleated RBC % (auto) Haptoglobin VBG pH 7.45 H VBG pCO2 46 VBG Oxygen Liters/Min TNP VBG pO2 122 VBG HCO3 31 VBG O2 Saturation 96.6 VBG Base Excess 6.2 Sodium 145 Potassium 3.9 Chloride 105 Carbon Dioxide 33 H Anion Gap 11 L BUN 21 H D Creatinine 0.76 Estim Creat Clear Calc 141.7 Estimated GFR > 60 Random Glucose 89 Calcium 9.3 Phosphorus 3.4 Magnesium 2.1 Total Bilirubin 1.3 H AST 83 H ALT 163 H Alkaline Phosphatase 103 D Total Protein 6.1 L Albumin 3.8 Vancomycin Trough Microbiology Microbiology Results: Microbiology 02/25/20 07:48 Sputum - Suctioned Gram Stain - Final 02/25/20 07:48 Sputum - Suctioned Sputum Culture - Final 02/25/20 04:44 Blood - Venous Blood Culture - Preliminary No growth after 48 hours. 02/25/20 04:45 Blood - Venous Blood Culture - Preliminary No growth after 48 hours. 02/25/20 07:48 Urine Catheterized - Dixon Catheter Urine Culture - Final No growth. Progress Note: A&P Assessment and plan (1) Hypophosphatemia: Status: Acute (2) Hypomagnesemia: Status: Acute (3) Aspiration of gastric contents: Status: Acute (4) Submandibular gland inflammation: Status: Acute (5) Ludwigs angina: Problem details: He is on ventilator and has possible anerobes,gram negatives concern He is doing better with face swelling but had vomiting,now better Status: Acute (6) Hypocalcemia: Status: Acute (7) Ludwigs angina: Status: Acute (8) Anaphylaxis: Status: Acute (9) Respiratory failure: Status: Acute (10) Allergic angioedema: Status: Acute Assessment and Plan: so meropenem is being stopped due to elevation of liver functions in in conjunction with nausea and vomiting and just maintaining the vancomycin for now and starting him on oral clear liquids Time Spent With Patient Time: Total time spent is greater than 50% in coordination of care (as documented) at patient's floor/unit and/or counseling patient: Total time spent with greater than 50% in coordination of care (as documented) at patient's floor/unit and/or counseling patient:: 30
[2020-02-28 16:03] LABS: Vancomycin Trough 25.6 mcg/mL (10.0-20.0)
[2020-02-28 21:41] LABS: Complement Total CH50 >60 U/mL (31-60)
[2020-02-28] MEDS: ondansetron HCL 4 MG/2 ML VIAL IVPUSH (22:38)
[2020-02-29 04:00] VITALS: BP 129/78; PULSE 93; RESP 18; TEMP 36.6; O2SAT 96
[2020-02-29 06:00] VITALS: BMI 27.6
[2020-02-29] MEDS: Pantoprazole Sodium 40 MG/10 ML VIAL IVPUSH (06:01)
--- NOTE | 2020-02-29 06:49 | PC.NURSE ---
no moreno order. josh marinelli'd at [id number]
[2020-02-29 06:54] VITALS: BP 118/72; PULSE 81; RESP 18; TEMP 36.4; O2SAT 94
[2020-02-29] MEDS: Albuterol/Iprat 2.5/0.5MG 3 ML AMPUL.NEB INHALE ×4 (07:18→19:46)
[2020-02-29] MEDS: dexAMETHasone sod phosphate 4 MG/ML VIAL IVPUSH (10:04)
[2020-02-29] MEDS: 0.9 % Sodium Chloride Flush 3 ML SYRINGE 2 ML IVFLUSH ×2 (10:05→23:55)
[2020-02-29 10:56] VITALS: BP 132/72; PULSE 74; RESP 18; TEMP 36.4; O2SAT 95
[2020-02-29] MEDS: KCl 20 mEq in 5% Dex/0.45% Sod 20 MEQ/1,000 ML IV.SOLN 42 MEQ IVCONT (12:10)
[2020-02-29 13:08] LABS: Vancomycin Trough 13.9 mcg/mL (10.0-20.0)
--- NOTE | 2020-02-29 14:12 | HO.PM.IMPN ---
Subjective Subjective Date of Service: 02/29/20 Interval History: the patient was seen and evaluated this morning Laying in bed, feels more comfortable Denies any fever, chills or shortness of breath able to swallow clear liquids, asking to advance his diet No reported other overnight events. Review of Systems Review of Systems: Yes all other systems are reviewed and are negative Physical Exam Vital Signs: Vital Signs: Vital Signs Temp Pulse Resp BP Pulse Ox 02/29/20 10:56 97.6 F 74 18 132/72 95 02/29/20 06:54 97.5 F 81 18 118/72 94 02/29/20 04:00 97.8 F 93 18 129/78 96 02/28/20 23:47 97.8 F 101 H 18 147/81 H 94 02/28/20 22:43 96 02/28/20 20:00 97.2 F 95 16 141/84 H 96 02/28/20 18:00 100.0 F 98 18 125/85 97 02/28/20 17:00 99.9 F 95 12 133/85 97 02/28/20 16:00 100.0 F 102 H 16 125/82 97 02/28/20 14:58 99.9 F 101 H 12 127/84 97 Body Mass Index 27.6 Constitutional : Alert, oriented, not in distress Neck : enlargement of the right side of his neck, no tenderness, no drainage. Cardiovascular : RRR, S1 S2, no lower extremity edema Respiratory : Good bilateral air entry, no crackles, wheezes or rhonchi Gastrointestinal: soft, lax, Normal bowel sounds, Non tender Skin : Warm/Dry, No rash Neurological : Alert & oriented x3, No focal deficit Objective Data Current Medications Generic Name Dose Route Start Last Admin Trade Name Freq PRN Reason Stop Dose Admin Acetaminophen 650 mg 02/23/20 18:28 02/25/20 06:29 Acetaminophen Oral Liquid 650 Mg/20.3 Ml Solution OG-TUBE 650 mg Q6H PRN Administration Pain and Fever Albuterol/Ipratropium 3 ml 02/27/20 12:00 02/29/20 11:09 Albuterol/Iprat 2.5/0.5mg 3 Ml Ampul.Neb INHALE 3 ml RQ4H WHILE AWAKE CJ Administration Dexamethasone Sodium Phosphate 4 mg 02/28/20 09:00 02/29/20 10:04 Dexamethasone Sod Phosphate 4 Mg/Ml Vial IVPUSH 4 mg DAILY [facility] Administration Vancomycin HCl 750 mg/ 275 mls @ 183.333 mls/hr 02/26/20 21:00 02/29/20 13:49 Vancomycin HCl 500 mg/ Sodium IV 03/04/20 20:59 183 mls/hr Chloride Q8H CJ Administration Potassium Chloride/Dextrose/Sod Cl 20 meq in 1,000 mls @ 42 mls/hr 02/27/20 12:15 02/29/20 12:10 IVCONT 42 mls/hr .[id number] CJ Administration Clindamycin Phosphate 600 mg in 50 mls @ 100 mls/hr 02/29/20 14:15 Cleocin IV Q8H [facility] Lidocaine/Diphenhydr/Alum/Mg/Simeth 10 ml 02/29/20 13:49 Mag&Al/Sim/Diphenhyd/Lidocaine 10 Ml Oral.Susp PO Q4H PRN Mouth Sore Pain Protocol Magnesium Hydroxide 30 ml 02/23/20 17:37 Milk Of Magnesia 30 Ml Oral.Susp PO DAILY PRN Constipation Nicotine 7 mg 02/24/20 20:45 02/29/20 10:04 Nicotine 7 Mg Patch.Td24 TRANSDERMA Not Given DAILY [facility] Ondansetron HCl 4 mg 02/28/20 22:24 02/28/20 22:38 Ondansetron Hcl 4 Mg/2 Ml Vial IVPUSH 4 mg Q8H PRN Administration Nausea and Vomiting Pantoprazole Sodium 40 mg 02/28/20 16:30 02/29/20 06:01 Pantoprazole Sodium 40 Mg/10 Ml Vial IVPUSH 40 mg BID@0630,1630 [facility] Administration Pharmacy Consult 1 each 02/25/20 09:51 Consult Rx Vancomycin Dosing MISCELLANE 03/10/20 09:50 DAILY PRN Consult order Sodium Chloride 2 ml 02/24/20 00:00 02/29/20 10:05 0.9 % Sodium Chloride Flush 3 Ml Syringe IVFLUSH 2 ml QSHIFT [facility] Administration Labs CBC & Chem 7: 02/28/20 05:16 02/28/20 05:16 Microbiology Microbiology Results: Microbiology 02/25/20 07:48 Sputum - Suctioned Gram Stain - Final 02/25/20 07:48 Sputum - Suctioned Sputum Culture - Final 02/25/20 04:44 Blood - Venous Blood Culture - Preliminary No growth after 48 hours. 02/25/20 04:45 Blood - Venous Blood Culture - Preliminary No growth after 48 hours. 02/25/20 07:48 Urine Catheterized - Dixon Catheter Urine Culture - Final No growth. Assessment and Plan (1) Ludwigs angina: Status: Acute (2) Aspiration of gastric contents: Status: Acute (3) Submandibular gland inflammation: Status: Acute Assessment and Plan: A 39 years old who presented to the hospital with suppurative submandibular infection. Admitted to ICU as Ilan angina. Treated with IV antibiotics, intubated , aspirated. Ilan angina Improving Advanced diet to full liquid Magic mouth spray as needed Id input appreciated continue vancomycin Start clindamycin Vancomycin trough Aspiration pneumonia On broad-spectrum antibiotic Continue steroids Elevated transaminitis Likely secondary to antibiotic of meropenem To monitor LFT Electrolyte imbalance Corrected hypomagnesemia, hypophosphatemia, hypocalcemia GERD Continue omeprazole DVT PPX Early ambulation
[2020-02-29 15:33] VITALS: BP 139/76; PULSE 97; RESP 18; TEMP 36.7; O2SAT 95
[2020-02-29] MEDS: Omeprazole 40 MG CAPSULE.DR PO (15:37)
[2020-02-29] MEDS: Mag&Al/Sim/Diphenhyd/Lidocaine 10 ML ORAL.SUSP PO (15:56)
[2020-02-29] MEDS: Clindamycin Phosphate/D5W 600 MG/50 ML PIGGYBACK 100 MG IV ×2 (16:31→23:55)
[2020-02-29 19:29] VITALS: BP 122/87; PULSE 78; TEMP 36.5; O2SAT 96
[2020-02-29 23:30] VITALS: BP 141/71; PULSE 75; RESP 16; TEMP 36.6; O2SAT 97
[2020-03-01 03:05] VITALS: BP 144/86; PULSE 75; RESP 16; TEMP 36.3; O2SAT 95
[2020-03-01] MEDS: Omeprazole 40 MG CAPSULE.DR PO (06:03)
[2020-03-01 06:40] LABS: MANUAL DIFF FLAG NO
[2020-03-01 06:48] VITALS: BMI 27.2
[2020-03-01 07:07] LABS: Basophils Percent Auto 0.3 % (0-2); Eosinophils Absolute Auto 0.1 X10*3/uL (0.0-0.4); Eosinophils Percent Auto 0.9 % (0-4); Hematocrit 47.2 % (42-52); Imm Gran Abs Auto 0.13 X10*3/uL (0.00-0.03); Imm Gran Pct Auto 1.2 % (0.0-0.4); Lymphocytes Absolute Auto 1.4 X10*3/uL (1.2-4.9); Lymphocytes Percent Auto 13.8 % (20-40); Mean Corpuscular HGB Conc 33.9 g/dl (31.0-36.0); Mean Corpuscular Hemoglobin 31.4 pg (27.0-33.0); Mean Corpuscular Volume 92.7 fL (80-98); Mean Platelet Volume 9.4 fL (9.4-12.4); Monocytes Absolute Auto 1.3 X10*3/uL (0.1-1.2); Monocytes Percent Auto 12.7 % (2-11); Neutrophils Absolute Auto 7.4 X10*3/uL (2.0-8.3); Neutrophils Percent Auto 71.1 % (45-73); Platelet Count 295 X10*3/uL (160-400); Red Blood Count 5.09 X10*6/uL (4.60-5.80); Red Cell Distribution Width 12.4 % (11.0-16.0); White Blood Count 10.4 X10*3/uL (4.8-10.8)
[2020-03-01 07:22] LABS: Alanine Aminotransferase 340 U/L (0-40); Albumin Level 3.9 g/dL (3.5-5.0); Alkaline Phosphatase 140 U/L (39-117); Anion Gap 13 (12-20); Aspartate Amino Transferase 90 U/L (5-37); Bilirubin Direct 0.5 mg/dL (0.0-0.5); Bilirubin Total 1.1 mg/dL (0.0-1.0); Blood Urea Nitrogen 27 mg/dL (9-16); Carbon Dioxide 28 mmol/L (22-29); Chloride 103 mmol/L (96-108); Creatinine Clr Calc Pharmacy 136.3; Estimated Glomerular Filt Rate > 60; Glucose Random 103 mg/dL (60-115); Potassium 3.5 mmol/l (3.3-5.1); Sodium 140 mmol/L (135-145); Total Protein 6.4 g/dL (6.5-8.0)
[2020-03-01] MEDS: Albuterol/Iprat 2.5/0.5MG 3 ML AMPUL.NEB INHALE ×2 (07:27→11:46)
[2020-03-01 07:33] VITALS: BP 101/70; PULSE 79; RESP 18; TEMP 36.6; O2SAT 96
[2020-03-01] MEDS: Clindamycin Phosphate/D5W 600 MG/50 ML PIGGYBACK 100 MG IV (08:21)
[2020-03-01] MEDS: 0.9 % Sodium Chloride Flush 3 ML SYRINGE 2 ML IVFLUSH (08:23)
[2020-03-01] MEDS: dexAMETHasone sod phosphate 4 MG/ML VIAL IVPUSH (08:23)
--- NOTE | 2020-03-01 08:57 | MHC.CM.PN ---
dc plan is for patient to return home no svcs. cm to cont. to follow.
[2020-03-01 11:24] VITALS: BP 138/79; PULSE 84; RESP 17; TEMP 37.1; O2SAT 95
--- NOTE | 2020-03-01 13:53 | P.DS_ITS ---
DS: Providers Provider Date of admission: 02/23/20 18:04 Primary care physician: Anamika Childers MD Consults: 02/23/20 20:03 Consult to Infectious Diseases Stat Consulting Provider: Infectious Disease Reason for consultation: intubated pt with ludwigs angina, need stat consult for abx, plan/transfer? Has provider been notified: No 02/23/20 20:45 Consult to Infectious Diseases Routine Consulting Provider: Rachael Alvares Reason for consultation: Ludwigs Angina, abx choice Has provider been notified: Yes 02/27/20 08:08 Consult to Infectious Diseases Routine Consulting Provider: Rosemary Mondragon Reason for consultation: severe asthma Has provider been notified: Yes DS: Diagnosis Discharge Diagnosis (1) Ludwigs angina: Status: Acute (2) Aspiration of gastric contents: Status: Acute (3) Submandibular gland inflammation: Status: Acute (4) Transaminitis: Status: Acute (5) Hypophosphatemia: Status: Acute (6) Hypomagnesemia: Status: Acute (7) Hypocalcemia: Status: Acute (8) Ludwigs angina: Status: Acute (9) Respiratory failure: Status: Acute DS: Summary Time Spent with Patient Time attestation: Admission note HPI by Dr Mondragon ICU 39-year-old who had just eaten a sandwich came in complaining of submandibular swelling rapidly losing ability to swallow and became panicky over his breathing and was emergently intubated for what seemed to be an anaphylaxis but with no skin manifestations no lip or periorbital edema no rashes and no fever and was perfectly well up until having eaten that [place]. so I doubted the anaphylactic issue and was more concerned with possibility of submandibular space infection and retropharyngeal spread so I ordered CT scan which corroborated a masslike affect and simply kept him sedated and intubated and proceeded with 1 stat dose of meropenem because of penicillin allergy at 2 g and at and verbally ordered clindamycin which was starting this morning at 600 mg q.6 hourly along with Levaquin to cover most of what would be common from the upper airway the patient was intubated in the emergency under the impression of possible Angioedema and anaphylaxis attack. further evaluation with CT scan of the head and neck was significant for swelling in the submandibular area suggestive of Ilan angina. The patient was admitted to the ICU and started on broad- spectrum antibiotic of meropenem, clindamycinand Levaquin. Did not require any pressure support. Evaluated by infectious disease specialist. Continue to improve and was extubated on the 26 February. His diet was advanced during the hospital stay and and he was able to tolerate regular diet. he developed a difficulty breathing lying ICU. The chest x-ray of the chest was consistent with aspiration pneumonia. He was started on nebulizers and steroid along with antibiotic coverage with fair response. He has been room since transfer from ICU. He was also noted to electrolyte imbalance. Received replacement Corrected hypomagnesemia, hypophosphatemia, hypocalcemia Noticed to increase in his liver enzymes. Ultrasound of the abdomen along with CT scan were negative for Cholelithiasis or obstruction But has a liver texture fatty liver. it was thought to be secondary to antibiotics on meropenem was and the patient was continued on clindamycin and vancomycin. Patient denies any pain, nausea or vomiting. No reported fever or chills. Continue doxycycline and Levaquin for 5 more days to finish total of 14 days of antibiotics after discussing with ID. To repeat blood test next week for liver enzymes To follow-up with PCP as outpatient next week Come back to the hospital for any difficulty breathing, increased swelling or fever. Physical Exam Vital Signs: Vital Signs: Vital Signs Temp Pulse Resp BP Pulse Ox 03/01/20 11:24 98.7 F 84 17 138/79 95 03/01/20 07:33 97.8 F 79 18 101/70 96 03/01/20 03:05 97.3 F 75 16 144/86 H 95 02/29/20 23:30 97.8 F 75 16 141/71 H 97 02/29/20 19:29 97.7 F 78 122/87 96 02/29/20 15:33 98.1 F 97 18 139/76 95 Body Mass Index 27.2 Constitutional : Alert, oriented, not in distress Neck : Normal inspection, Supple , no significant edema or tenderness on palpation Cardiovascular : RRR, S1 S2, no lower extremity edema Respiratory : Good bilateral air entry, no crackles, wheezes or rhonchi Gastrointestinal: soft, lax, Normal bowel sounds, Non tender Skin : Warm/Dry, No rash Neurological : Alert & oriented x3, No focal deficit DS: Data Data Completed and Pending Labs on day of discharge: Labs from last 24 hours 03/01/20 03/01/20 06:24 06:24 WBC 10.4 RBC 5.09 Hgb 16.0 Hct 47.2 MCV 92.7 MCH 31.4 MCHC 33.9 RDW 12.4 Plt Count 295 MPV 9.4 Immature Gran % (Auto) 1.2 H Neut % (Auto) 71.1 Lymph % (Auto) 13.8 L [place] % (Auto) 12.7 H Eos % (Auto) 0.9 Baso % (Auto) 0.3 Lymph # (Auto) 1.4 [place] # (Auto) 1.3 H Eos # (Auto) 0.1 Baso # (Auto) 0.0 Abs Immat Gran (auto) 0.13 H Absolute Neuts (auto) 7.4 Absolute Nucleated RBC 0.000 Nucleated RBC % (auto) 0.0 Sodium 140 Potassium 3.5 Chloride 103 Carbon Dioxide 28 Anion Gap 13 BUN 27 H Creatinine 0.79 Estim Creat Clear Calc 136.3 Estimated GFR > 60 Random Glucose 103 Calcium 9.0 Total Bilirubin 1.1 H Direct Bilirubin 0.5 AST 90 H ALT 340 H Alkaline Phosphatase 140 H D Total Protein 6.4 L Albumin 3.9 Discharge Plan Discharge Patient Disposition: Home, Self-Care Referrals: PATIENT IS BEING DISCHARGED HOME WITHOUT ANY SERVICES [Other] Anamika Childers MD [Primary Care Provider] - Discharge Medications: New doxycycline monohydrate 100 mg capsule 100 mg PO BID Qty: 14 RF: 0 levofloxacin 500 mg tablet 500 mg PO DAILY Qty: 7 RF: 0 Continued No Known Home Meds RF: 0 Discharge Orders: Discharge Order (Routine); Ordered 03/01/20 Ordered By: Mando Boucher Diet: advance to your usual diet Activity on Discharge: As tolerated Stand Alone Forms: Work/School Release Discharge Date/Time: 03/01/20 14:00 Other Ambulatory Orders: Liver Panel (Routine) Timeframe: [id number] Facility: [facility] - Location: Laboratory Ordered By: Mando Boucher Visit Report Forms: Patient Portal Discharge page Care Plan Goals: - Health Concerns: - Plan of Treatment: You have presented to the hospital with difficulty breathing and airway problem secondary to anaphylaxis. Found to have deep tissue infection in the upper part of the neck. Requiring ICU admission intubation with treatment of IV antibiotics. You were noticed to have difficulty breathing. A chest x-ray was consistent with aspiration pneumonia. Weaned off oxygen as your diet was advanced during the hospital stay with good response. Your liver enzymes were noted to be mildly elevated. Images of your abdomen were negative for any acute infection or gallbladder problem. Seems to be a result of antibiotic usage. Continue doxycycline and Levaquin as prescribed given your history penicillin allergy To follow-up with PCP as outpatient next week Come back to the hospital for any difficulty breathing, increased swelling or fever. To repeat blood test next week for liver enzymes
== END 2020-03-01 14:00 | disposition home or self-care (01) | DRG 115 ==
LOC: HO.ED 17:25 → HO.ICU 18:03 → HO.ED 18:05 → HO.ICU 18:05 → HO.S3 02-28 18:25
PROVIDERS: Internal Medicine; Physician Assistant; Admitting Provider Internal Medicine Cardiovascular Disease; Emergency Provider Emergency Medicine; PCP Family Medicine; Visit Provider Student in an Organized Health Care Education/Training Program
DX: K12.2 Cellulitis and abscess of mouth (principal); J96.00 Acute respiratory failure, unspecified whether with hypoxia or hypercapnia; J69.0 Pneumonitis due to inhalation of food and vomit; F05 Delirium due to known physiological condition; R74.01 Elevation of levels of liver transaminase levels; K21.9 Gastro-esophageal reflux disease without esophagitis; E83.42 Hypomagnesemia; E83.51 Hypocalcemia; F17.210 Nicotine dependence, cigarettes, uncomplicated; Z71.6 Tobacco abuse counseling; Z88.0 Allergy status to penicillin; Z20.828 Contact with and (suspected) exposure to other viral communicable diseases
CPT/HCPCS: 36415; 70490; 70491; 70543; 70546; 71045; 71260; 74176; 76705; 80048; 80053; 80076; 80202; 80307; 81001; 82784; 82803; 83010; 83605; 83615; 83735; 84100; 84145; 85007; 85025; 85027; 85610; 85652; 85730; 86140; 86160; 86162; 86803; 86850; 86900; 86901; 86927; 87040; 87070; 87086; 87205; 87389; 87635; 93005; 93010; 94640; 94660; 94799; 96361; 96374; 96375; 99284; 99291; J0131; J0610; J1100; J2060; J2250; J2370; J2405; J2765; J3010; J3370; J3475; P9017

== ENCOUNTER 2020-03-23 15:04 | Emergency (ER) | payer OTHER, SELFPAY ==
[2020-03-23 16:38] VITALS: BP 124/86; PULSE 95; RESP 16; O2SAT 98; BMI 29.7
--- NOTE | 2020-03-23 16:57 | ED_ITS ---
HPI - Neck Pain/Injury General Chief Complaint: General Medical Stated Complaint: swelling in neck Time Seen by Provider: 03/23/20 16:28 Source: patient Mode of arrival: ambulatory Limitations: no limitations History of Present Illness HPI Narrative: Patient noticed sudden onset of swelling left submandibular area after having hot chocolate, getting worse after eating food hx of similar episode last month Related Data Home Medications Medication Instructions Recorded Confirmed No Known Home Meds 02/24/20 02/24/20 Previous Rx's Medication Instructions Recorded doxycycline monohydrate 100 mg PO BID #14 cap 03/01/20 levofloxacin 500 mg PO DAILY #7 tab 03/01/20 Allergies Allergy/AdvReac Type Severity Reaction Status Date / Time penicillin V Allergy Unknown Unknown Verified 02/23/20 22:08 Penicillins [PENICILLINS] Allergy Unknown UNKNOWN Verified 02/23/20 22:09 REACTION A CHILD Review of Systems Review of Systems: REVIEW OF SYSTEMS: Pertinent positives and negatives are stated above in the history. GEN: no fevers, chills, fatigue HEENT: no nasal congestion, sore throat, ear pain NEURO: no headache, dizziness, focal weakness PULM: no cough, shortness of breath CV: no chest pain, palpitations, LE edema ABD: no abdominal pain, nausea, vomiting, diarrhea : no dysuria, urgency, frequency SKIN: no rash ROS otherwise negative x 10 PMFSH Past Medical History Medical History No known health problems Social History Social History Smoking Status: Current every day smoker Tobacco Type: Cigarette Smoked in Last 30 Days: No Use of substances other than those prescribed or required for medical reasons: No Advance Directives: No Advance Directives Information Provided: No service: No Current occupational status: employed Physical Exam Vital Signs: Vital Signs: Vital Signs Temp Pulse Resp BP Pulse Ox 03/23/20 17:03 97.6 F 73 16 112/73 99 03/23/20 16:38 95 16 124/86 98 Body Mass Index 29.7 Appearance: Alert. Oriented X3. No acute distress. Eyes: Pupils equal, round and reactive to light. ENT: Pharynx normal. Neck: Swollen left mandibular gland tender small stone at the opening of whar ton's duct under the tongue, Neck supple. CVS: Normal heart rate and rhythm. Pulses normal. Respiratory: No respiratory distress. Breath sounds normal. Abdomen: Soft and nontender. Skin: Skin warm and dry. Normal skin color. Normal skin turgor. Extremities: No lower extremity edema. Good range of movement Neuro: Oriented X 3. No motor deficit. No sensory deficit. Course Course Course Narrative: Small stone in the left [place]'s duct was squeezed out patient immediately started feeling better pain has decreased Discharge Plan Discharge Clinical Impression: Sialolithiasis of submandibular gland Patient Disposition: Home, Self-Care Instructions: Sialoadenitis (ED) Additional Instructions: Drink plenty of fluids have sour drops as adv, your stone has been removed, follow up with ENT if recurrence of swelling Prescriptions: No Action No Known Home Meds RF: 0 doxycycline monohydrate 100 mg capsule 100 mg PO BID Qty: 14 RF: 0 levofloxacin 500 mg tablet 500 mg PO DAILY Qty: 7 RF: 0 Referrals: [facility] Tidwell [Physician] - 10 days Interventions: ED Discharge Assessment Last Done: 03/23/20 17:05 Discharge Date/Time: 03/23/20 17:05 Print Language: Bulgarian
[2020-03-23 17:03] VITALS: BP 112/73; PULSE 73; RESP 16; TEMP 36.4; O2SAT 99
== END 2020-03-23 17:05 | disposition home or self-care (01) ==
PROVIDERS: Emergency Provider Internal Medicine; PCP Family Medicine
DX: K11.5 Sialolithiasis (principal); F17.210 Nicotine dependence, cigarettes, uncomplicated; Z71.6 Tobacco abuse counseling
CPT/HCPCS: 99283; 99284

== ENCOUNTER → 2021-02-16 09:26 | Outpatient (BNVA) | payer SELFPAY | PROVIDERS: PCP Family Medicine; Visit Provider Physician Assistant | DX: Z02.79 Encounter for issue of other medical certificate (principal) ==

== ENCOUNTER 2021-07-27 04:54 | Emergency (ER) | payer OTHER, SELFPAY ==
--- NOTE | ~2021-07-27 | CT_ITS ---
EXAMINATION: CT ABDOMEN AND PELVIS WITH CONTRAST CLINICAL INFORMATION: Abdominal pain. COMPARISON: 02/28/2020 TECHNIQUE: Multidetector volumetric images were obtained from the superior aspect of the liver through the pubic symphysis following administration 85 mL of Omnipaque 350 intravenous contrast. Sagittal and coronal reformatted images were obtained on the technologist's workstation. Oral contrast: No This CT examination was performed using dose optimization techniques as appropriate, variously including the following: *Automated exposure control *Adjustment of mA and/or kV according to patient size (this includes techniques or standardized protocols for targeted exams where dose is matched to indication/reason for exam; i.e. extremities or head) *Use of iterative reconstruction technique DLP: 707 mGy-cm FINDINGS: LUNG BASES: Normal. No pulmonary consolidation or pleural effusion at either lung base. LIVER: Liver is diffusely hypodense compared to the spleen (approximately 30 HU lower density) on these portal venous phase images, consistent with steatosis. No focal hepatic lesion. GALLBLADDER AND BILIARY TREE: Gallbladder is without radiopaque stones, wall thickening or pericholecystic fluid. No dilated bile ducts. PANCREAS: Normal. No edema, pancreatic ductal dilatation or mass. SPLEEN: Normal. ADRENAL GLANDS: Normal. KIDNEYS AND URETERS: The kidneys have normal size and cortical thickness. No renal mass. No perinephric edema. No urolithiasis or hydroureteronephrosis. BLADDER: Normal. No calculi or wall thickening. BOWEL AND PERITONEUM: Stomach is unremarkable. No dilated loops of bowel. The appendix is normal. No bowel wall thickening or mesenteric fat stranding. No ascites or pneumoperitoneum. ABDOMINAL WALL: Unremarkable. VASCULATURE: Unremarkable. LYMPH NODES: No pathologic sized lymph nodes in the abdomen or pelvis. No inguinal lymphadenopathy. PELVIC VISCERA: Unremarkable. SKELETAL: Unremarkable. CT/CT abdomen pelvis w con IMPRESSION: * Diffuse hepatic steatosis. * No acute imaging abnormalities in the abdomen or pelvis compared to 02/28/2020.
[2021-07-27 05:00] VITALS: BP 113/73; PULSE 72; RESP 20; TEMP 36.4; O2SAT 98; BMI 29.2
--- NOTE | 2021-07-27 05:33 | ED_ITS ---
HPI - Abdominal Pain General Chief Complaint: Abdominal Pain Stated Complaint: stomach pain Time Seen by Provider: 07/27/21 05:32 Source: patient and conference interpreter Mode of arrival: ambulatory History of Present Illness HPI narrative: 41-year-old male without significant past medical history other than psoriasis presents with waxing and waning abdominal symptoms that have not been associated with fever, chills, nausea, vomiting, diarrhea. Patient states that the pain had gone away for approximately 1 month but now has returned and worsened over the last 1-2 hours and woke him from sleep. Patient denies any history of kidney stones, surgeries in the abdomen but does report that he is continued to pass flatus, his last bowel movement was this morning, and at times he has to strain and there is bleeding with his bowel movements. He otherwise denies any shortness of breath/chest pain/palpitations. Related Data Home Medications Medication Instructions Recorded Confirmed No Known Home Meds 02/24/20 02/24/20 Previous Rx's Medication Instructions Recorded doxycycline monohydrate 100 mg 100 mg PO BID #14 cap 03/01/20 capsule levofloxacin 500 mg tablet 500 mg PO DAILY #7 tab 03/01/20 Allergies Allergy/AdvReac Type Severity Reaction Status Date / Time penicillin V Allergy Unknown Unknown Verified 02/23/20 22:08 Penicillins [PENICILLINS] Allergy Unknown UNKNOWN Verified 02/23/20 22:09 REACTION A CHILD Review of Systems Review of Systems Pertinent positives and negatives as stated in HPI 10 point review of systems is otherwise negative. [facility], [facility] Past Medical History Source: nursing notes reviewed Medical History No known health problems Social History Social History Alcohol intake: never Patient Tobacco Use Status: Current everyday Tobacco user Cigarettes Per Day: 10 Use of substances other than those prescribed or required for medical reasons: No Advance Directives: No Advance Directives Information Provided: Yes service: No Current occupational status: employed Physical Exam ED Vital Signs: Vital Signs - 24 hr 07/27/21 05:00 07/27/21 07:18 Temperature 97.5 F 98.0 F Pulse Rate 72 64 Respiratory Rate 20 18 Blood Pressure 113/73 110/60 Pulse Oximetry 98 97 BMI result Body Mass Index 29.2 VITAL SIGNS: Reviewed. GENERAL: Well developed, well nourished, in no acute distress. HEAD: Normocephalic/atraumatic EYES: PERRLA, EOMI OROPHARYNX: no oral lesions noted, posterior pharynx clear LUNGS: Normal breath sounds. No adventitious sounds or accessory muscle use. SpO2<98> CARDIOVASCULAR: Regular rate and rhythm without noted murmurs ABDOMEN: Soft, tenderness along lower abdomen maximal at midline, non-distended with bowel sounds. MUSCULOSKELETAL: No tenderness, deformities, or effusions noted on gross inspection. EXTREMITIES: No cyanosis, clubbing or edema. SKIN: Inspection of the skin reveals psoriasis of abdomen and thighs NEUROLOGIC: Alert and oriented x 4. Strength and sensation to light touch were grossly intact x 4. Course Course Course Narrative: 41-year-old male with lower abdominal pain concerning for possible renal colic, appendicitis, diverticulitis but on review of all investigations there are no acute findings. Patient has denied all alcohol and drug use. Will pursue CT of abdomen pelvis. Patient provided with combination analgesics. Review of all investigations without acute findings. I discussed all results with the patient at bedside and courage him to follow-up with his primary care provider for further outpatient management. MDM - Abdominal Pain Lab Data Result diagrams: 07/27/21 05:30 07/27/21 05:30 Labs: Lab Results 07/27/21 07/27/21 07/27/21 Range/Units 05:27 05:30 05:30 WBC 8.5 (4.8-10.8) X10*3/uL RBC 5.28 (4.60-5.80) X10*6/uL Hgb 16.6 (14.0-18.0) g/dl Hct 49.9 (42.0-52.0) % MCV 94.5 (80.0-98.0) fL MCH 31.4 (27.0-33.0) pg MCHC 33.3 (31.0-36.0) g/dl RDW 12.3 (11.0-16.0) % Plt Count 334 (160-400) X10*3/uL MPV 9.0 L (9.4-12.4) fL Immature Gran % (Auto) 0.4 (0.0-0.4) % Neut % (Auto) 67.8 (45-73) % Lymph % (Auto) 22.2 (20-40) % [place] % (Auto) 6.1 (2-11) % Eos % (Auto) 2.8 (0-4) % Baso % (Auto) 0.7 (0-2) % Lymph # (Auto) 1.9 (1.2-4.9) X10*3/uL [place] # (Auto) 0.5 (0.1-1.2) X10*3/uL Eos # (Auto) 0.2 (0.0-0.4) X10*3/uL Baso # (Auto) 0.1 (0.0-0.2) X10*3/uL Abs Immat Gran (auto) 0.03 (0.00-0.03) X10*3/uL Absolute Neuts (auto) 5.7 (2.0-8.3) x10*3/uL Absolute Nucleated RBC 0.000 (0.0-0.012) X10*3/uL Nucleated RBC % (auto) 0.0 (0.0-0.2) /100WBC Sodium 142 (135-145) mmol/L Potassium 4.7 (3.3-5.1) mmol/L Chloride 107 (96-108) mmol/L Carbon Dioxide 28 (22-29) mmol/L Anion Gap 12 (12-20) BUN 21 H (9-16) mg/dL Creatinine 1.14 (0.5-1.4) mg/dL Estim Creat Clear Calc 102.4 Estimated GFR > 60 Random Glucose 106 (60-115) mg/dL Calcium 10.0 D (8.4-10.2) mg/dL Total Bilirubin 0.3 (0.0-1.0) mg/dL AST 28 D (5-37) U/L ALT 45 H (0-40) U/L Alkaline Phosphatase 88 D (39-117) U/L Total Protein 7.1 (6.5-8.0) g/dL Albumin 4.4 (3.5-5.0) g/dL Lipase 29 (8-78) U/L Urine Color YELLOW Urine Appearance CLEAR Urine pH 6.0 (5.0-8.0) Ur Specific [place] 1.025 (1.005-1.025) Urine Protein NEG (NEG-TRACE) MG/DL Urine Glucose (UA) NEG (NEG) MG/DL Urine Ketones NEG (NEG) MG/DL Urine Blood TRACE (NEG) Urine Nitrite NEG (NEG) Ur Leukocyte Esterase NEG (NEG) Urine RBC 1-4 (0) /HPF Urine WBC 1-4 (0-4) /HPF Ur Squamous Epith Cells 1+ /LPF Urine Bacteria 1+ /LPF Discharge Plan Discharge Clinical Impression: Abdominal pain Patient Disposition: Home, Self-Care Instructions: Abdominal Pain (ED) Additional Instructions: Edwige un seguimiento con richter proveedor de atenci?n primaria los pr?ximos 2 o 3 d?as para patricia reevaluaci?n. Recomiende Tylenol/ibuprofeno de venta willem seg?n sea necesario para controlar el dolor en nat de que los s?ntomas reaparezcan. Regrese a la micah de emergencias si los s?ntomas empeoran. Prescriptions: No Action No Known Home Meds 0RF doxycycline monohydrate 100 mg capsule 100 mg PO BID Qty: 14 0RF levofloxacin 500 mg tablet 500 mg PO DAILY Qty: 7 0RF Print Language: Mohawk
[2021-07-27 05:35] LABS: MANUAL DIFF FLAG NO
[2021-07-27 05:37] LABS: Basophils Absolute Auto 0.1 X10*3/uL (0.0-0.2); Basophils Percent Auto 0.7 % (0-2); Eosinophils Absolute Auto 0.2 X10*3/uL (0.0-0.4); Eosinophils Percent Auto 2.8 % (0-4); Hematocrit 49.9 % (42.0-52.0); Hemoglobin 16.6 g/dl (14.0-18.0); Imm Gran Abs Auto 0.03 X10*3/uL (0.00-0.03); Imm Gran Pct Auto 0.4 % (0.0-0.4); Lymphocytes Absolute Auto 1.9 X10*3/uL (1.2-4.9); Lymphocytes Percent Auto 22.2 % (20-40); Mean Corpuscular HGB Conc 33.3 g/dl (31.0-36.0); Mean Corpuscular Hemoglobin 31.4 pg (27.0-33.0); Mean Corpuscular Volume 94.5 fL (80.0-98.0); Monocytes Absolute Auto 0.5 X10*3/uL (0.1-1.2); Monocytes Percent Auto 6.1 % (2-11); Neutrophils Absolute Auto 5.7 x10*3/uL (2.0-8.3); Neutrophils Percent Auto 67.8 % (45-73); Platelet Count 334 X10*3/uL (160-400); Red Blood Count 5.28 X10*6/uL (4.60-5.80); Red Cell Distribution Width 12.3 % (11.0-16.0); White Blood Count 8.5 X10*3/uL (4.8-10.8)
[2021-07-27 05:38] LABS: Appearance Urine CLEAR; Color Urine YELLOW; Glucose Urine UA NEG (NEG); Leukocyte Esterase Urine NEG (NEG); Nitrite Urine NEG (NEG); Specific Gravity - Urine 1.025 (1.005-1.025); UACC Culture Trigger NO; Urine Blood TRACE (NEG); Urine Ketones NEG (NEG); Urine Protein NEG (NEG-TRACE)
[2021-07-27 05:54] LABS: Alanine Aminotransferase 45 U/L (0-40); Albumin Level 4.4 g/dL (3.5-5.0); Alkaline Phosphatase 88 U/L (39-117); Anion Gap 12 (12-20); Aspartate Amino Transferase 28 U/L (5-37); Bilirubin Total 0.3 mg/dL (0.0-1.0); Blood Urea Nitrogen 21 mg/dL (9-16); Carbon Dioxide 28 mmol/L (22-29); Chloride 107 mmol/L (96-108); Creatinine Clr Calc Pharmacy 102.4; Estimated Glomerular Filt Rate > 60; Glucose Random 106 mg/dL (60-115); Lipase 29 U/L (8-78); Potassium 4.7 mmol/L (3.3-5.1); Sodium 142 mmol/L (135-145); Total Protein 7.1 g/dL (6.5-8.0)
[2021-07-27 05:55] LABS: Bacteria Urine 1+ /LPF; Squamous Epithelial Cell Urine 1+ /LPF
[2021-07-27] MEDS: Ketorolac Tromethamine 30 MG/ML VIAL 15 MG IVPUSH (06:32)
[2021-07-27] MEDS: Acetaminophen 325 MG TABLET 975 MG PO (06:35)
[2021-07-27] MEDS: iohexoL 350 MG/ML 100 ML INFUS..BTL 85 ML IV (06:57)
[2021-07-27 07:18] VITALS: BP 110/60; PULSE 64; RESP 18; TEMP 36.7; O2SAT 97
[2021-07-27] MEDS: Simethicone 80 MG TAB.CHEW PO (07:27)
== END 2021-07-27 07:51 | disposition home or self-care (01) ==
PROVIDERS: Emergency Provider Student in an Organized Health Care Education/Training Program
DX: R10.9 Unspecified abdominal pain (principal); F17.210 Nicotine dependence, cigarettes, uncomplicated; Z71.6 Tobacco abuse counseling; Z79.899 Other long term (current) drug therapy
CPT/HCPCS: 36415; 74177; 80053; 81001; 83690; 85025; 96374; 99284; 99285; J1885; Q9967

== ENCOUNTER 2022-04-19 14:59 | Emergency (ER) | payer OTHER, SELFPAY ==
[2022-04-19 18:00] VITALS: BP 115/72; PULSE 81; RESP 16; TEMP 36.7; O2SAT 97; BMI 29.2
--- NOTE | 2022-04-19 19:34 | ED_ITS ---
HPI - Skin/Abscess/Foreign Bdy General Chief complaint: Skin/Abscess/Foreign Body Stated complaint: Cysts Issue Time Seen by Provider: 04/19/22 19:33 Source: patient Mode of arrival: ambulatory Limitations: no limitations History of Present Illness HPI narrative: This is a 41-year-old male no significant medical history presenting to the emergency department with complaints of abscess to left groin x2 days progre ssively worsening. Patient tells me the area is tender to the touch, warm, red. He tells me he gets these frequently and he has to get them drained. Denies fevers and chills, numbness and tingling. Related Data Previous Rx's Medication Instructions Recorded doxycycline monohydrate 100 mg 100 mg PO BID #14 caps 03/01/20 capsule levofloxacin 500 mg tablet 500 mg PO DAILY #7 tabs 03/01/20 cephalexin 500 mg tablet 500 mg PO Q6H 10 days #40 tabs 04/19/22 doxycycline hyclate 100 mg capsule 100 mg PO BID 10 days #20 caps 04/19/22 Allergies Allergy/AdvReac Type Severity Reaction Status Date / Time penicillin V Allergy Unknown Unknown Verified 02/23/20 22:08 Penicillins [PENICILLINS] Allergy Unknown UNKNOWN Verified 02/23/20 22:09 REACTION A CHILD Review of Systems Review of Systems: Constitutional : No Weight loss, No Fever, No Chills, No Fatigue, No Malaise ENT/Mouth : No sore throat, No Rhinorrhea Eyes: No Eye Pain, No Swelling, No Redness Cardiovascular : No Chest Pain, No SOB, No Dyspnea on Exertion, No Orthopnea, No Edema, No Palpitations Respiratory : No Cough, No Sputum, No Wheezing Gastrointestinal : No Nausea, No Vomiting, No Diarrhea, No Constipation, No abdominal Pain, No Hematochezia, No Melena Genitourinary : No Dysuria, No Urinary Frequency, No Hematuria, Musculoskeletal : No joint pain, No Myalgias, No Joint Swelling Skin : No Skin Lesions, No rash, + abcess Neuro : No Weakness, No Numbness, No Dizziness, No Headache Psych : No Anxiety/Panic, No Depression All other systems reviewed and are negative Yes all other systems are reviewed and are negative [facility] Past Medical History Attestation statement: The following information was validated with the patient. Source: old records reviewed and nursing notes reviewed Medical History No known health problems Social History Social History Alcohol intake: never Patient Tobacco Use Status: Current everyday Tobacco user Cigarettes Per Day: 10 Advance Directives: No Advance Directives Information Provided: No service: No Current occupational status: employed Physical Exam Vital Signs: Vital Signs: Last Vital Signs Temp 98.0 F 04/19/22 18:00 Pulse 81 04/19/22 18:00 Resp 16 04/19/22 18:00 BP 115/72 04/19/22 18:00 Pulse Ox 97 04/19/22 18:00 O2 Del Method 04/19/22 18:00 BMI result Body Mass Index 29.2 vss Appearance: Alert.? Oriented X3.? No acute distress.? Head: Normocephalic, atraumatic, no step-offs or deformities Eyes: Pupils equal, round and reactive to light.? ENT: Pharynx normal.? Neck: Normal inspection.? Neck supple.? CVS: Normal heart rate and rhythm.? Pulses normal.? Respiratory: No respiratory distress.? Breath sounds normal.? Abdomen: Soft and nontender.? Skin: Skin warm and dry.? Normal skin color.? Normal skin turgor.?+2 cm X 2 cm abceess to left groin w/ overlying errythema and warmth. Extremities: No lower extremity edema.? No calf ttp. 5/5 strength to bilateral upper and lower extremities Neuro: Oriented X 3.? No motor deficit.? No sensory deficit. CN 2-12 intact Course Reevaluation(s) Reevaluation #1: I&D done by Dr. Durham w/ moderate amount of purulence expressed. Patient will be given first dose of ATBX here. Advised to return with any new or worsening symptoms. Educated on worsening signs and symptoms and when to return. This time I feel comfortable with discharge home. Advised to follow-up with PCP. Time: 19:56 Reevaluation #2: Patient was given Keflex and doxycycline. Was monitoring him for at least an hour as patient had an unknown penicillin allergy however when asked if he had an anaphylactic reaction to penicillin he stated he did not think so, he said he had a reaction when he was younger and his mom just told him to not take penicillin. It appears as though he tolerated Keflex well. Patient eloped the department prior to getting discharge paperwork, I did go over discharge instructions with him previously verbally, he verbalizes understanding. Antibiotics sent to pharmacy. Time: 21:50 Medications Administered Discontinued Medications Generic Name Dose Route Start Last Admin Trade Name Kayode PRN Reason Stop Dose Admin Cephalexin HCl 500 mg 04/19/22 19:48 04/19/22 21:06 Cephalexin 500 Mg Capsule PO 04/19/22 19:49 500 mg ONCE ONE Administration Doxycycline Monohydrate 100 mg 04/19/22 19:48 04/19/22 21:06 Doxycycline Monohydrate 100 Mg Capsule PO 04/19/22 19:49 100 mg ONCE ONE Administration Lidocaine HCl 20 ml 04/19/22 19:35 04/19/22 21:06 Lidocaine Hcl 1 % 20 Ml Vial SUBCUT 04/19/22 19:36 20 ml ONCE ONE Administration MDM - Skin/Abscess/Foreign Bdy MDM Narrative Medical decision making narrative: 1932 41 yo m presents w/ abcess to L. groin X2 days PE w/ 2 cm x 2 cm abscess to the left groin with fluctuance, erythema and warmth overlying. History and physical examination concerning for abscess with overlying cellulitis and possible lymphangitis. Plan at this time is to do incision and drainage. Medical Records Attestation: I reviewed the patient's medical records. Lab Data Attestation: I reviewed the patient's lab results. Critical Care Time Critical Care Time Critical Care Time: No Discharge Plan Discharge Clinical Impression: Cellulitis, Lymphangitis, Abscess of skin or subcutaneous tissue Patient Disposition: Elopement Instructions: Cellulitis (ED), Lymphangitis (ED), Warm Compress or Soak (ED) Additional Instructions: Take your medications as prescribed. If you were prescribed antibiotics today, it is important that you take your medication to their entirety, do not skip any doses, do not finish them early. Follow-up with your primary care provider this week. Return to the emergency department with new or worsening symptoms. Such as fevers, chills, chest pain, shortness of breath, nausea, vomiting, dizziness, headache, vision changes, lethargy, discharge from area, worsening redness, swelling In case of emergency call 911 Apply warm compresses to the area 3 times a day. Prescriptions: New doxycycline hyclate 100 mg capsule 100 mg PO BID 10 Days Qty: 20 0RF cephalexin 500 mg tablet 500 mg PO Q6H 10 Days Qty: 40 0RF No Action doxycycline monohydrate 100 mg capsule 100 mg PO BID Qty: 14 0RF levofloxacin 500 mg tablet 500 mg PO DAILY Qty: 7 0RF Referrals: Physician,Unknown J [Primary Care Provider] - 2 days Stand Alone Forms: Work/School Release
[2022-04-19] MEDS: Lidocaine HCl 1 % 20 ML VIAL SUBCUT (21:06)
[2022-04-19] MEDS: Doxycycline Monohydrate 100 MG CAPSULE PO (21:06)
[2022-04-19] MEDS: cephALEXin 500 MG CAPSULE PO (21:06)
== END 2022-04-19 22:21 | disposition left against medical advice (07) ==
PROVIDERS: Emergency Provider Internal Medicine
DX: L03.314 Cellulitis of groin (principal); L02.214 Cutaneous abscess of groin; I89.1 Lymphangitis; F17.210 Nicotine dependence, cigarettes, uncomplicated
CPT/HCPCS: 10060; 99283; 99284

== ENCOUNTER 2022-05-10 23:15 | Emergency (ER) | payer OTHER, SELFPAY ==
--- NOTE | ~2022-05-10 | XR_ITS ---
EXAMINATION: XR CHEST CLINICAL INFORMATION: Cough COMPARISON: 02/27/2020 TECHNIQUE: Frontal view of the chest was obtained. FINDINGS: Lung volumes are symmetric. No focal consolidation is seen. No evidence of pneumothorax, pleural effusion, or pulmonary edema. The cardiomediastinal contour is unremarkable. No acute osseous findings are seen. XR/XR chest 1V IMPRESSION: No acute cardiopulmonary findings.
[2022-05-10 23:28] VITALS: BP 120/76; PULSE 104; RESP 22; TEMP 37.9; O2SAT 96; BMI 27.8
[2022-05-11 00:02] LABS: COVID-19 Test Negative (Negative); IDNOW Serial# 08D9AD1C
[2022-05-11 00:03] LABS: Influenza A Negative (Negative); Influenza B2 Negative (Negative)
--- NOTE | 2022-05-11 00:05 | ED_ITS ---
HPI - URI/Sore Throat General Chief Complaint: Upper Respiratory Symptoms Stated Complaint: flu like symptoms, dehydration Time Seen by Provider: 05/11/22 00:05 Source: patient Mode of arrival: ambulatory Limitations: no limitations History of Present Illness HPI Narrative: Patient otherwise healthy complaining of cough fever headache body aches since last night cough is mostly dry no other family member sick Related Data Previous Rx's Medication Instructions Recorded doxycycline monohydrate 100 mg 100 mg PO BID #14 caps 03/01/20 capsule levofloxacin 500 mg tablet 500 mg PO DAILY #7 tabs 03/01/20 cephalexin 500 mg tablet 500 mg PO Q6H 10 days #40 tabs 04/19/22 doxycycline hyclate 100 mg capsule 100 mg PO BID 10 days #20 caps 04/19/22 azithromycin 250 mg tablet 250 mg PO DAILY 4 days #4 tabs 05/11/22 (Zithromax Z-Osorio) benzonatate 200 mg capsule 200 mg PO TID PRN cough #20 caps 05/11/22 ibuprofen 600 mg tablet 600 mg PO Q6H PRN fever or pain 05/11/22 #30 tabs Allergies Allergy/AdvReac Type Severity Reaction Status Date / Time penicillin V Allergy Unknown Unknown Verified 05/10/22 23:32 Penicillins [PENICILLINS] Allergy Unknown UNKNOWN Verified 05/10/22 23:32 REACTION A CHILD Review of Systems Review of Systems: Yes all other systems are reviewed and are negative PMFSH Past Medical History Medical History No known health problems Social History Social History Alcohol intake: never Patient Tobacco Use Status: Current everyday Tobacco user Cigarettes Per Day: 10 Smoked in Last 30 Days: Yes Use of substances other than those prescribed or required for medical reasons: No Advance Directives: No service: No Current occupational status: employed Physical Exam Vital Signs: Vital Signs: Last Vital Signs Temp 100.4 F 05/11/22 01:34 Pulse 90 05/11/22 01:34 Resp 16 05/11/22 01:34 BP 101/52 L 05/11/22 01:34 Pulse Ox 95 05/11/22 01:34 O2 Del Method 05/11/22 01:34 BMI result Body Mass Index 27.8 Appearance: Alert. Oriented X3. No acute distress. ENT: Pharynx normal. Oral Mucosa moist Neck: Normal inspection. Neck supple. CVS: Normal heart rate and rhythm. Pulses normal. Respiratory: No respiratory distress. Equal air entry bilateral, no wheezing/rales/rhonchi Skin: Skin warm and dry. Normal skin color. Normal skin turgor. Extremities: No lower extremity edema. Neuro: Oriented X 3. Medications Administered Discontinued Medications Generic Name Dose Route Start Last Admin Trade Name Kayode PRN Reason Stop Dose Admin Acetaminophen 650 mg 05/11/22 00:34 05/11/22 00:51 Acetaminophen 325 Mg Tablet PO 05/11/22 00:35 650 mg ONCE ONE Administration Azithromycin 500 mg 05/11/22 00:34 05/11/22 00:52 Azithromycin 500 Mg Tablet PO 05/11/22 00:35 500 mg ONCE ONE Administration Guaifenesin/Codeine Phosphate 10 ml 05/11/22 00:34 05/11/22 00:52 Guaifen/Codeine Sf 200/20/10ml 10 Ml Liquid PO 05/11/22 00:35 10 ml ONCE ONE Administration Ketorolac Tromethamine 60 mg 05/11/22 00:34 05/11/22 00:52 Ketorolac Tromethamine 60 Mg/2 Ml Vial IM 05/11/22 00:35 60 mg ONCE ONE Administration Medical Decision Making Medical Decision Making [facility] Narrative: Patient with acute bronchitis discharge patient home on Zithromax cough drops Lab Data [facility] Lab Attestation statement: I reviewed the patient's lab results. Labs: Lab Results 05/10/22 05/10/22 Range/Units 23:33 23:33 COVID-19 (ROBBIE) Negative (Negative) COVID-19 Clin Com See Note Influenza Type A (AMAN) Negative (Negative) Influenza Type B (AMAN) Negative (Negative) Influenza A & B Note See Note Discharge Plan Discharge Clinical Impression: Bronchitis Patient Disposition: Home, Self-Care Instructions: Acute Bronchitis (ED) Additional Instructions: Take antibiotic as prescribed Cough drops as prescribed Tylenol/Motrin for fever and body aches Follow with PCP if not better Your COVID/influenza tests are negative Prescriptions: New azithromycin [Zithromax Z-Osorio] 250 mg tablet 250 mg PO DAILY 4 Days Qty: 4 0RF Rx Instructions: start on day 2 of therapy benzonatate 200 mg capsule 200 mg PO TID PRN (Reason: cough) Qty: 20 0RF ibuprofen 600 mg tablet 600 mg PO Q6H PRN (Reason: fever or pain) Qty: 30 0RF No Action doxycycline monohydrate 100 mg capsule 100 mg PO BID Qty: 14 0RF levofloxacin 500 mg tablet 500 mg PO DAILY Qty: 7 0RF doxycycline hyclate 100 mg capsule 100 mg PO BID 10 Days Qty: 20 0RF cephalexin 500 mg tablet 500 mg PO Q6H 10 Days Qty: 40 0RF
[2022-05-11] MEDS: Acetaminophen 325 MG TABLET 650 MG PO (00:51)
[2022-05-11] MEDS: Azithromycin 500 MG TABLET PO (00:52)
[2022-05-11] MEDS: Ketorolac Tromethamine 60 MG/2 ML VIAL IM (00:52)
[2022-05-11] MEDS: guaiFEN/Codeine SF 200/20/10ML 10 ML LIQUID PO (00:52)
[2022-05-11 01:34] VITALS: BP 101/52; PULSE 90; RESP 16; TEMP 38; O2SAT 95
== END 2022-05-11 03:37 | disposition home or self-care (01) ==
PROVIDERS: Emergency Provider Internal Medicine
DX: J40 Bronchitis, not specified as acute or chronic (principal); R50.9 Fever, unspecified; Z20.822 Contact with and (suspected) exposure to COVID-19
CPT/HCPCS: 71045; 87502; 87635; 96372; 99284; J1885

== ENCOUNTER 2022-07-17 13:32 | Outpatient (REF) | payer OTHER, SELFPAY ==
--- NOTE | ~2022-07-17 | US_ITS ---
EXAMINATION: US SCROTUM CLINICAL INFORMATION: Follicular cyst of the skin and subcutaneous tissue, unspecified. Itchy testicles. COMPARISON: Ultrasound scrotum 10/24/2018. TECHNIQUE: A sonogram of the scrotum was performed assessing madden-scale appearance and color Doppler flow. Spectral Doppler analysis of the arterial and venous flow were performed in the testes bilaterally. FINDINGS: RIGHT: Right testicle measures 4.8 x 2.0 x 3.0 cm, volume 14.9 mL. Spectral Doppler analysis of the arterial and venous flow is normal in the right testis. Right epididymal head is normal in size. No right hydrocele or varicocele is seen. Right epididymal Doppler flow is normal. LEFT: Left testicle measures 4.5 x 2.3 x 2.7 cm, volume 14.2 mL. No focal testicular parenchymal lesions are visualized. Spectral Doppler analysis of the arterial and venous flow is normal in the left testis. Left epididymal head is normal in size. There are 2 small left epididymal head cysts measuring 1.1 x 0.9 x 0.9 cm and 0.5 x 0.4 x 0.5 cm. No left hydrocele or varicocele is seen. Left epididymal Doppler flow is normal. US/US scrotum IMPRESSION: 1. Two small left epididymal head cysts. 2. The testes are unremarkable.
== END 2022-07-17 13:33 | disposition home or self-care (01) ==
LOC: HO.US 13:32
PROVIDERS: PCP Family Medicine; Visit Provider Nurse Practitioner Primary Care
DX: L72.9 Follicular cyst of the skin and subcutaneous tissue, unspecified (principal)
CPT/HCPCS: 76870

== ENCOUNTER 2023-07-09 08:17 | Emergency (ER) | payer OTHER, SELFPAY ==
[2023-07-09 08:23] VITALS: BP 126/78; PULSE 85; RESP 16; TEMP 36.6; O2SAT 98; BMI 26.5
--- NOTE | 2023-07-09 09:15 | ED.SKABFB ---
HPI - Skin/Abscess/Foreign Bdy General Chief complaint: Skin/Abscess/Foreign Body Stated complaint: Itchy genital area Time Seen by Provider: 07/09/23 09:14 Source: patient Mode of arrival: ambulatory Limitations: no limitations History of Present Illness HPI narrative: 43 year old male with pmhx significant for transaminitis, allergic angioedema, and recurrent perineal abscesses presents to the ED this morning for evaluation of abscess to genital area x48 hours. States that it is painful, red and tender to touch. Reports similar abscess approximately 2 weeks ago which drained without intervention. Two days ago, the abscess began to enlarge again. Admits similar episodes in the past that have required drainage. The last time approximately 2 years ago. Denies fever, chills, nausea vomiting, abdominal pain, diarrhea, penile discharge, scrotal swelling, dysuria or hematuria. Denies recent travel. Denies recent tick or insect bites. Denies concern for sexually transmitted infections. Related Data Previous Rx's Medication Instructions Recorded doxycycline monohydrate 100 mg 100 mg PO BID #14 caps 03/01/20 capsule levofloxacin 500 mg tablet 500 mg PO DAILY #7 tabs 03/01/20 cephalexin 500 mg tablet 500 mg PO Q6H 10 days #40 tabs 04/19/22 doxycycline hyclate 100 mg capsule 100 mg PO BID 10 days #20 caps 04/19/22 azithromycin 250 mg tablet 250 mg PO DAILY 4 days #4 tabs 05/11/22 (Zithromax Z-Osorio) benzonatate 200 mg capsule 200 mg PO TID PRN cough #20 caps 05/11/22 ibuprofen 600 mg tablet 600 mg PO Q6H PRN fever or pain 05/11/22 #30 tabs cephalexin 500 mg capsule 500 mg PO Q6H 10 days #40 caps 07/09/23 doxycycline hyclate 100 mg capsule 100 mg PO BID 10 days #20 caps 07/09/23 oxycodone 5 mg capsule 5 mg PO Q8H PRN pain (scale score 07/09/23 7-10) #5 caps Allergies Allergy/AdvReac Type Severity Reaction Status Date / Time penicillin V Allergy Unknown Unknown Verified 05/10/22 23:32 Penicillins [PENICILLINS] Allergy Unknown UNKNOWN Verified 05/10/22 23:32 REACTION A CHILD Review of Systems Review of Systems: Constitutional: No fever, chills, fatigue, night sweats, weight changes ENT/Mouth: No ear pain, hearing loss, nasal congestion, sinus pain, rhinorrhea, sore throat Eyes: No eye pain, swelling, redness, vision changes, discharge Cardio: No chest pain, palpitations, VEL[place]ZQUEZ, orthopnea, peripheral edema Pulm: No SOB, cough, sputum, wheezing, dyspnea, hemoptysis GI: No nausea, vomiting, hematemesis, abdominal pain, diarrhea, constipation, hematochezia, melena : No irregular bleeding, dysuria, frequency, urgency, hesitancy, hematuria, flank pain, urinary flow changes, urinary incontinence or retention MSK: No back pain, neck pain, joint pain, myalgias Skin: No lesions, rashes, +abscess Neuro: No weakness, numbness, paresthesias, LOC, dizziness, headache All other systems reviewed and are negative. [facility] Past Medical History Attestation statement: The following information was validated with the patient. Source: old records reviewed and nursing notes reviewed Medical History No known health problems Social History Social History Alcohol intake: never Comment: camera Patient Tobacco Use Status: Current everyday Tobacco user Cigarettes Per Day: 10 Advance Directives: No service: No Current occupational status: employed Physical Exam Vital Signs: Vital Signs: Last Vital Signs Temp 98 F 07/09/23 08:23 Pulse 85 07/09/23 08:23 Resp 16 07/09/23 08:23 BP 126/78 07/09/23 08:23 Pulse Ox 98 07/09/23 08:23 O2 Del Method Room Air 07/09/23 08:23 BMI result Body Mass Index 26.5 Vital signs stable, afebrile Const: Other: + anxious General: cooperative, healthy appearing, comfortable, no acute distress, alert and awake Orientation/consciousness: patient oriented x3 Limitations: no limitations HEENT: Head: Yes normal to inspection Eyes: General: appearance normal, both eyes and all related structures Conjunctivae: conjunctivae normal Sclerae: sclerae normal Pupils: Equal, round and reactive pupils present Neck: Neck: Yes normal visual inspection, Yes no lymphadenopathy and Yes no meningeal signs Resp: Effort & Inspection: normal respiratory effort and no respiratory distress Auscultation: clear to auscultation bilaterally Cardio: Rate: regular rate Rhythm: regular rhythm GI: Inspection: Yes normal to inspection Palpation (GI): Soft to palpation and nontender : Other: + sensitive exam performed with Lamar PAZ in room. + external genitalia without lesions, rashes, overlying skin changes or masses. No expressible discharge from glans. Normal testicular lie. No scrotal swelling or varicosities. + 2cm x 2cm abscess to left perineum with erythema. On palpation there is central fluctuance and warmth. No induration. No streaking or signs concerning for lymphagitis. General: Yes no CVA tenderness Back/Spine/Pelvis: Back: no CVA tenderness Skin: Other: + refer to findings above General skin exam: no rashes or lesions noted Neuro: General: patient oriented x3, gait normal, moves all extremities and no meningeal signs Cranial nerves: Yes Equal, round and reactive pupils present Extrem: General: Yes normal to inspection and Yes full ROM Course Course Course Narrative: 0932-- Patient visible anxious about FNA procedure. He tells me he has had these done in the past and they have been extremely painful. High educated him on the use of lidocaine however he states that the administration of this last time was very painful. He is requesting oral medication prior to procedure. 1 mg of Ativan ordered which patient is agreeable with. He confirms that he will have someone here to drive him home on discharge as he is receiving Ativan. 1050-- on re-evaluation, patient is tearful about procedure. He states that he does not feel any different with the Ativan. He is clearly very anxious about the procedure given history. I sat down with patient and explained how a needle aspiration works. He has only had I and D's in the past. He is requesting something for pain however does not want any IV medications. IM Toradol ordered. Will re-evaluate. 1200-- Patient is now comfortable to proceed with needle aspiration. Perineal abscess successfully drained with needle after lidocaine admin. Approximately 15 cc aspirated. Patient tolerated procedure well. Lamar PAZ in room to leather piece inspector and assist. Will send both Keflex and doxycycline to pharmacy for infection. Oxycodone for pain. Of note he does have an allergy to penicillin however he has received both Keflex and doxycycline in the past without adverse reaction and denies anaphylactic reaction to penicillin. Discussed worrisome signs and symptoms and when to return to the ED. I have also provided him with a referral to general surgery. All questions answered at this time. Patient has remained stable throughout visit today. He is agreeable disposition stable for discharge. Medications Administered Discontinued Medications Generic Name Dose Route Start Last Admin Trade Name Kayode PRN Reason Stop Dose Admin Ketorolac Tromethamine 60 mg 07/09/23 10:49 07/09/23 11:26 Ketorolac Tromethamine 60 Mg/2 Ml Vial IM 07/09/23 10:50 60 mg ONCE ONE Administration Lidocaine HCl 5 ml 07/09/23 09:26 07/09/23 09:39 Lidocaine Hcl 1 % Mpf 5 Ml Vial INFILTRATI 07/09/23 09:27 5 ml ONCE ONE Administration Lorazepam 1 mg 07/09/23 09:45 07/09/23 10:04 Lorazepam 1 Mg Tablet PO 07/09/23 09:46 1 mg ONCE ONE Administration Medical Decision Making Medical Decision Making [facility] Narrative: 43 year old male with pmhx difficult for transaminitis, recurrent perineal abscess, presents to the ED this morning for evaluation of abscess to genital area x48 hours. Vital signs stable. Afebrile. He is nontoxic-appearing and in no acute distress. Slightly anxious about procedure. Please refer to physical exam section for findings. Clinical concern for perineal abscess, perineal cyst, cellulitis, UTI. Unlikely lymphangitis, pilonidal cyst, hemorrhoids, anal fissure, anal fistula, malignancy, proctitis, sexually transmitted infection, HIV/AIDS. Plan for pain control, needle aspiration and re-evaluation. Differential Diagnosis Differential Diagnoses: The differential diagnosis associated with the presentation includes As above Admission/Observation Not indicated Lab Data [facility] Lab Attestation statement: I reviewed the patient's lab results. as above. Labs: Lab Results 07/09/23 Range/Units 09:42 Urine Color Yellow Urine Appearance Clear Urine pH 6.0 (5.0-9.0) Ur Specific Burkett 1.010 (1.005-1.025) Urine Protein Negative (Neg-Trace) mg/dL Urine Glucose (UA) Negative (Negative) mg/dL Urine Ketones Negative (Negative) mg/dL Urine Blood Negative (Negative) Urine Nitrite Negative (Negative) Ur Leukocyte Esterase Negative (Negative) External Record Review External record reviewed: Inpatient record, Office record, Outpatient record, Prior outpatient labs, Prior outpatient radiology, Primary care record and Outside ED record Prescription Management I considered prescription management with: Pain Medication and Antibiotic Social Determinants Patient?s care significantly limited by Social Determinants of Health including: Other Social Determinant of Health Procedures Abscess I/D Site: other (left perineal) Side (if applicable): left Local Anesthetic: lidocaine 1% Amount of anesthesia used (mL): 5 Technique: needle aspiration Amount of fluid expressed (mL): 15 Sent for culture/gram staining?: No Irrigation: No Packing used?: none Critical Care Time Critical Care Time Critical Care Time: Yes Total Critical Care Time: 35 Attestation: Critical care time in the amount of 35 minutes has been provided to the patient in terms of direct patient care, frequent reevaluation, review and interpretation of medical data and results, and management of potentially life-threatening conditions. This is all outside of any medical procedures. Discharge Plan Discharge Clinical Impression: Perineal abscess Patient Disposition: Home, Self-Care Instructions: Abscess (ED), Abscess Follow-up (ED) Additional Instructions: You were evaluated in the emergency department today for abscess to perineum. The abscess was drained with a needle in the ED. This is likely to recur in the future. Doxycycline is an antibiotic that has been sent to your pharmacy. Take this twice daily for the next 10 days to treat infection. Keflex is an antibiotic that has been sent to your pharmacy. Take this 4 times daily for the next 10 days to treat infection. Take all antibiotics to completion. Do not stop taking these early or skip any doses as this may cause infection to return or worsen. Oxycodone is a controlled pain medication. You have been sent home with 5 pills. Take these over the next day or 2 for severe pain. You may also take Tylenol and ibuprofen as needed. You have been provided with a referral to a general surgeon. You may call them to establish care if you wish to do so for episodes in the future. Please follow up with your primary care provider. If you do not have a primary care provider, a referral has been provided to you. If symptoms persist or worsen please return to the ED. The case of an emergency call 911. On doxycycline, do not take pills immediately before going to bed and swallow pills with plenty of water. Avoid direct sunlight, iron, antacids, and Pepto Bismol. Call your provider if you develop new ringing in your ears, new problems hearing, dizziness, difficulty swallowing, rash, abdominal discomfort, nausea, or diarrhea. On a cephalosporin?antibiotic, softer bowel movements are to be expected. Call your provider if you move your bowels more than 4 times a day, your bowel movements are almost all liquid, or you get a rash.? GENERAL SUGREON: [phone] Usted fue evaluado hoy en el departamento de emergencias por un absceso en el perineo. El absceso se dren? con patricia aguja en el servicio de urgencias. Es probable que esto se repita en el futuro. La doxiciclina es un antibi?chris que hanson sido enviado a richter farmacia. Polvadera esto dos veces al d?a breann los pr?ximos 10 d?as para tratar la infecci?n. Keflex es un antibi?chris que hanson sido enviado a richter farmacia. Polvadera esto 4 veces al d?a breann los pr?ximos 10 d?as para tratar la infecci?n. Polvadera todos los antibi?ticos hasta el final. No deje de tomarlos antes de tiempo ni se salte ninguna dosis, ya que esto puede hacer que la infecci?n regrese o empeore. La oxicodona es un analg?sico controlado. Te leiva enviado a casa con 5 pastillas. T?melos breann suman o dos d?as si tiene dolor intenso. Tambi?n puede ahsan Tylenol e ibuprofeno seg?n sea necesario. Se le hanson proporcionado patricia derivaci?n a un cirujano general. Puede llamarlos para establecer la atenci?n si desea hacerlo para episodios en el futuro. Edwige un seguimiento con richter proveedor de atenci?n primaria. Si no tiene un proveedor de atenci?n primaria, se le hanson proporcionado patricia derivaci?n. Si los s?ntomas persisten o empeoran, regrese al servicio de urgencias. El nat de patricia llamada de emergencia al 911. En el nat de doxiciclina, no tome las pastillas inmediatamente antes de acostarse y tr?guelas con abundante agua. Evite la merlin solar directa, el patricia, los anti?cidos y el Pepto Bismol. Llame a richter proveedor si presenta nuevos zumbidos en los o?dos, nuevos problemas de audici?n, mareos, dificultad para tragar, sarpullido, malestar abdominal, n?useas o diarrea. Con un antibi?chris de cefalosporina, se esperan deposiciones m?s blandas. Llame a richter proveedor si defeca m?s de 4 veces al d?a, si nemesio deposiciones son jasson todas l?quidas o si tiene sarpullido. SUGRE?N GENERAL: [phone] Prescriptions: New doxycycline hyclate 100 mg capsule 100 mg PO BID 10 Days Qty: 20 0RF cephalexin 500 mg capsule 500 mg PO Q6H 10 Days Qty: 40 0RF oxycodone 5 mg capsule 5 mg PO Q8H PRN (Reason: pain (scale score 7-10)) Qty: 5 0RF Rx Instructions: Partial Fill upon patient request. No Action doxycycline monohydrate 100 mg capsule 100 mg PO BID Qty: 14 0RF levofloxacin 500 mg tablet 500 mg PO DAILY Qty: 7 0RF doxycycline hyclate 100 mg capsule 100 mg PO BID 10 Days Qty: 20 0RF cephalexin 500 mg tablet 500 mg PO Q6H 10 Days Qty: 40 0RF azithromycin [Zithromax Z-Osorio] 250 mg tablet 250 mg PO DAILY 4 Days Qty: 4 0RF Rx Instructions: start on day 2 of therapy benzonatate 200 mg capsule 200 mg PO TID PRN (Reason: cough) Qty: 20 0RF ibuprofen 600 mg tablet 600 mg PO Q6H PRN (Reason: fever or pain) Qty: 30 0RF Referrals: [facility] General Surgeons [Provider Group] [facility] [place]Provider Group] [facility] [facility] [Provider Group] Stand Alone Forms: Work/School Release Print Language: Hebrew
[2023-07-09] MEDS: Lidocaine HCl 1 % MPF 5 ML VIAL INFILTRATI (09:39)
[2023-07-09 09:50] LABS: Appearance Urine Clear; Color Urine Yellow; Glucose Urine UA Negative (Negative); Leukocyte Esterase Urine Negative (Negative); Nitrite Urine Negative (Negative); Urine Blood Negative (Negative); Urine Ketones Negative (Negative); Urine Protein Negative (Neg-Trace)
[2023-07-09] MEDS: LORazepam 1 MG TABLET PO (10:04)
[2023-07-09] MEDS: Ketorolac Tromethamine 60 MG/2 ML VIAL IM (11:26)
== END 2023-07-09 12:18 | disposition home or self-care (01) ==
PROVIDERS: Physician Assistant Medical; Emergency Provider Emergency Medicine; PCP Family Medicine
DX: L02.215 Cutaneous abscess of perineum (principal); F41.9 Anxiety disorder, unspecified; F43.0 Acute stress reaction; F17.210 Nicotine dependence, cigarettes, uncomplicated; Z79.899 Other long term (current) drug therapy
CPT/HCPCS: 10061; 81003; 96372; 99284; J1885

== ENCOUNTER 2023-07-12 00:27 | Emergency (ER) | payer OTHER, SELFPAY ==
[2023-07-12 00:34] VITALS: BP 118/64; PULSE 91; RESP 18; TEMP 36.6; O2SAT 95; BMI 26.5
[2023-07-12] MEDS: Ondansetron ODT 4 MG TAB.RAPDIS TRANSLINGU (00:39)
[2023-07-12 00:56] LABS: Basophils Absolute Auto 0.1 X10*3/uL (0.0-0.2); Basophils Percent Auto 0.5 % (0-2); Eosinophils Absolute Auto 0.1 X10*3/uL (0.0-0.4); Eosinophils Percent Auto 0.8 % (0-4); Hematocrit 49.5 % (42.0-52.0); Hemoglobin 16.9 g/dl (14.0-18.0); Imm Gran Abs Auto 0.03 X10*3/uL (0.00-0.03); Imm Gran Pct Auto 0.2 % (0.0-0.4); Lymphocytes Absolute Auto 1.4 X10*3/uL (1.2-4.9); Lymphocytes Percent Auto 9.9 % (20-40); MANUAL DIFF FLAG NO; Mean Corpuscular HGB Conc 34.1 g/dl (31.0-36.0); Mean Corpuscular Hemoglobin 32.1 pg (27.0-33.0); Mean Corpuscular Volume 94.1 fL (80.0-98.0); Mean Platelet Volume 8.7 fL (9.4-12.4); Monocytes Absolute Auto 0.8 X10*3/uL (0.1-1.2); Monocytes Percent Auto 5.7 % (2-11); Neutrophils Percent Auto 82.9 % (45-73); Platelet Count 335 X10*3/uL (160-400); Red Blood Count 5.26 X10*6/uL (4.60-5.80); Red Cell Distribution Width 12.7 % (11.0-16.0); White Blood Count 14.5 X10*3/uL (4.8-10.8)
[2023-07-12 01:12] LABS: Alanine Aminotransferase 23 U/L (0-40); Albumin Level 4.4 g/dL (3.5-5.0); Alkaline Phosphatase 90 U/L (39-117); Anion Gap 15 (12-20); Aspartate Amino Transferase 16 U/L (5-37); Bilirubin Direct 0.2 mg/dL (0.0-0.5); Bilirubin Total 0.3 mg/dL (0.0-1.0); Blood Urea Nitrogen 16 mg/dL (9-16); Calcium 9.9 mg/dL (8.4-10.2); Carbon Dioxide 27 mmol/L (22-29); Chloride 108 mmol/L (96-108); Creatinine Clr Calc Pharmacy 76.6; Estimated Glomerular Filt Rate 58; Glucose Random 125 mg/dL (60-115); Lipase 59 U/L (8-78); Potassium 4.5 mmol/L (3.3-5.1); Sodium 145 mmol/L (135-145); Total Protein 7.6 g/dL (6.5-8.0)
[2023-07-12 02:52] VITALS: BP 110/71; PULSE 66; RESP 11; TEMP 37.1; O2SAT 98
--- NOTE | 2023-07-12 03:29 | ECG_ITS ---
Test Reason : NAUSEA Blood Pressure : / mmHG Vent. Rate : 064 BPM Atrial Rate : 064 BPM P-R Int : 130 ms QRS Dur : 094 ms QT Int : 406 ms P-R-T Axes : 026 011 042 degrees QTc Int : 418 ms Normal sinus rhythm Possible Lateral infarct (cited on or before 23-FEB-2020) Abnormal ECG When compared with ECG of 23-FEB-2020 18:44, No significant change was found Referred By: Bev Blum Electronically Signed By:RAFAEL ALICEA MD
--- NOTE | 2023-07-12 03:37 | ED.NAVMDI ---
HPI - Nausea/Vomiting/Diarrhea General Chief complaint: Nausea/Vomiting/Diarrhea Stated complaint: vomiting, dizzy, stomach pain Time Seen by Provider: 07/12/23 03:27 Source: patient Mode of arrival: ambulatory Limitations: no limitations History of Present Illness HPI Narrative: Patient comes to the emergency room complaining nausea vomiting and dizziness. Patient states that he woke up around 18:00, complaining of nausea and vomiting. Patient states that he believes that his antibiotic that he was prescribed 2 days ago, doxycycline for a gluteal abscess is making him feel nauseous. Patient was also prescribed oxycodone, but patient states that he only took it that they that he had the procedure done. And has not taking it for 2 days. Patient denies abdominal pain. Patient states that initially he was lightheaded, epigastric burning sensation. Related Data Previous Rx's Medication Instructions Recorded doxycycline monohydrate 100 mg 100 mg PO BID #14 caps 03/01/20 capsule levofloxacin 500 mg tablet 500 mg PO DAILY #7 tabs 03/01/20 cephalexin 500 mg tablet 500 mg PO Q6H 10 days #40 tabs 04/19/22 doxycycline hyclate 100 mg capsule 100 mg PO BID 10 days #20 caps 04/19/22 azithromycin 250 mg tablet 250 mg PO DAILY 4 days #4 tabs 05/11/22 (Zithromax Z-Osorio) benzonatate 200 mg capsule 200 mg PO TID PRN cough #20 caps 05/11/22 ibuprofen 600 mg tablet 600 mg PO Q6H PRN fever or pain 05/11/22 #30 tabs cephalexin 500 mg capsule 500 mg PO Q6H 10 days #40 caps 07/09/23 doxycycline hyclate 100 mg capsule 100 mg PO BID 10 days #20 caps 07/09/23 oxycodone 5 mg capsule 5 mg PO Q8H PRN pain (scale score 07/09/23 7-10) #5 caps ondansetron 4 mg disintegrating 4 mg PO Q6H PRN nausea and 07/12/23 tablet vomiting #10 tabs Allergies Allergy/AdvReac Type Severity Reaction Status Date / Time penicillin V Allergy Unknown Unknown Verified 07/12/23 00:33 Penicillins [PENICILLINS] Allergy Unknown UNKNOWN Verified 07/12/23 00:33 REACTION A CHILD Review of Systems Review of Systems: Constitutional : No Weight loss, No Fever, No Chills, No Night Sweats, No Fatigue, No Malaise ENT/Mouth : No Hearing loss, No Ear Pain, No Nasal Congestion, No Sinus Pain, No Hoarseness, No sore throat, No Rhinorrhea, No Swallowing Difficulty Eyes: No Eye Pain, No Swelling, No Redness, No Foreign Body, No Discharge, No Vision Changes Cardiovascular : No Chest Pain, No SOB, No Dyspnea on Exertion, No Orthopnea, No Edema, No Palpitations Respiratory : No Cough, No Sputum, No Wheezing, No Smoke Exposure, No Dyspnea Gastrointestinal : Complaining of nausea and vomiting, no diarrhea, epigastric burning sensation, no abdominal pain Genitourinary : no irregular bleeding, No Dysuria, No Urinary Frequency, No Hematuria, No Urinary Incontinence, No Urgency, No Flank Pain, No Urinary Flow Changes, No Hesitancy Musculoskeletal : No joint pain, No Myalgias, No Joint Swelling Skin : No Skin Lesions, No rash Neuro : No Weakness, No Numbness, No Paresthesias, No Loss of Consciousness, No Dizziness, No Headache Psych : No Anxiety/Panic, No Depression, No SI/HI/AH/VH, No Social Issues, Heme/Lymph: No Bruising, No Bleeding,No Lymphadenopathy Endocrine : No Polyuria, No Polydipsia, No Temperature Intolerance PMFSH Past Medical History Medical History No known health problems Social History Social History Alcohol intake: current Alcohol intake frequency: holidays/special occasions only Comment: camera Patient Tobacco Use Status: Current everyday Tobacco user Cigarettes Per Day: 10 Smoked in Last 30 Days: Yes Use of substances other than those prescribed or required for medical reasons: No Advance Directives: No Advance Directives Information Provided: Yes service: No Current occupational status: employed Physical Exam Vital Signs: Vital Signs: Last Vital Signs Temp 98.8 F 07/12/23 02:52 Pulse 66 07/12/23 02:52 Resp 11 L 07/12/23 02:52 BP 110/71 07/12/23 02:52 Pulse Ox 98 07/12/23 02:52 O2 Del Method Room Air 07/12/23 02:52 BMI result Body Mass Index 26.5 Const: Other: Appearance: Alert. Oriented X3. No acute distress. Eyes: Pupils equal, round and reactive to light. ENT: Pharynx normal. Neck: Normal inspection. Neck supple. No lymph nodes noted. No crepitus CVS: Normal heart rate and rhythm. Pulses normal. Normal S1 and S2 Respiratory: No respiratory distress. Breath sounds normal. No Wheezing. No rales Abdomen: Soft and nontender. No rigidity. No distention. Skin: Skin warm and dry. Normal skin color. Normal skin turgor. Extremities: No lower extremity edema. No Lacerations. No Rash Neuro: Oriented X 3. No motor deficit. No sensory deficit. Moving all extremities. No slurred speech. CN 2 through 12 grossly intact Psych: calm, cooperative, normal affect Medications Administered Discontinued Medications Generic Name Dose Route Start Last Admin Trade Name Freq PRN Reason Stop Dose Admin Ondansetron HCl 4 mg 07/12/23 00:37 07/12/23 00:39 Ondansetron Odt 4 Mg Tab.Rapdis TRANSLINGU 07/12/23 00:38 4 mg ONCE ONE Administration Medical Decision Making Medical Decision Making [facility] Narrative: The position of labs: White blood cell count 14.5, likely reactive leukocytosis, chemistry within normal limit, troponin negative -my interpretation of EKG, normal sinus rhythm, heart rate 64, no ST segment depression or elevation, no T-wave inversion, QTC 418 Differential Diagnosis Differential Diagnoses: The differential diagnosis associated with the presentation includes (Viral syndrome, gastritis, gastroenteritis, ACS) Admission/Observation Consideration of admission/observation: Escalation of care including admission/observation considered (Given patient's constellation of symptoms, admission was considered) Consult Healthcare Provider Management of the patient was discussed with: Primary Care Provider Lab Data [facility] Lab Attestation statement: I reviewed the patient's lab results. 07/12/23 00:50 07/12/23 00:50 Labs: Lab Results 07/12/23 Range/Units 00:50 WBC 14.5 H (4.8-10.8) X10*3/uL RBC 5.26 (4.60-5.80) X10*6/uL Hgb 16.9 (14.0-18.0) g/dl Hct 49.5 (42.0-52.0) % MCV 94.1 (80.0-98.0) fL MCH 32.1 (27.0-33.0) pg MCHC 34.1 (31.0-36.0) g/dl RDW 12.7 (11.0-16.0) % Plt Count 335 (160-400) X10*3/uL MPV 8.7 L (9.4-12.4) fL Immature Gran % (Auto) 0.2 (0.0-0.4) % Neut % (Auto) 82.9 H (45-73) % Lymph % (Auto) 9.9 L (20-40) % [place] % (Auto) 5.7 (2-11) % Eos % (Auto) 0.8 (0-4) % Baso % (Auto) 0.5 (0-2) % Lymph # (Auto) 1.4 (1.2-4.9) X10*3/uL [place] # (Auto) 0.8 (0.1-1.2) X10*3/uL Eos # (Auto) 0.1 (0.0-0.4) X10*3/uL Baso # (Auto) 0.1 (0.0-0.2) X10*3/uL Abs Immat Gran (auto) 0.03 (0.00-0.03) X10*3/uL Absolute Neuts (auto) 12.0 H (2.0-8.3) x10*3/uL Absolute Nucleated RBC 0.000 (0.0-0.012) X10*3/uL Nucleated RBC % (auto) 0.0 (0.0-0.2) /100WBC Sodium 145 (135-145) mmol/L Potassium 4.5 (3.3-5.1) mmol/L Chloride 108 (96-108) mmol/L Carbon Dioxide 27 (22-29) mmol/L Anion Gap 15 (12-20) BUN 16 (9-16) mg/dL Creatinine 1.35 (0.5-1.4) mg/dL Estim Creat Clear Calc 76.6 Estimated GFR 58 Random Glucose 125 H (60-115) mg/dL Calcium 9.9 (8.4-10.2) mg/dL Total Bilirubin 0.3 (0.0-1.0) mg/dL Direct Bilirubin 0.2 (0.0-0.5) mg/dL AST 16 (5-37) U/L ALT 23 (0-40) U/L Alkaline Phosphatase 90 (39-117) U/L Troponin I High Sens < 2.7 (<3.5-35.0) ng/L Total Protein 7.6 (6.5-8.0) g/dL Albumin 4.4 (3.5-5.0) g/dL Lipase 59 (8-78) U/L Independent Interpretation I performed an independent interpretation of an: EKG Critical Care Time Critical Care Time Critical Care Time: Yes Total Critical Care Time: 45 Attestation: I have personally provided critical care time. Time includes review of lab data, radiology results, discussion with consultants, and monitoring for potential decompensation. Intervention performed as documented. Discharge Plan Discharge Clinical Impression: Nausea & vomiting, Dizziness Patient Disposition: Home, Self-Care Instructions: Acute Nausea and Vomiting (ED), Dizziness (ED) Additional Instructions: Please follow-up with your primary care physician tomorrow. If you have any worsening or new symptoms, please return to the emergency room or call 911 Prescriptions: New ondansetron 4 mg tablet,disintegrating 4 mg PO Q6H PRN (Reason: nausea and vomiting) Qty: 10 0RF No Action doxycycline monohydrate 100 mg capsule 100 mg PO BID Qty: 14 0RF levofloxacin 500 mg tablet 500 mg PO DAILY Qty: 7 0RF doxycycline hyclate 100 mg capsule 100 mg PO BID 10 Days Qty: 20 0RF cephalexin 500 mg tablet 500 mg PO Q6H 10 Days Qty: 40 0RF azithromycin [Zithromax Z-Osorio] 250 mg tablet 250 mg PO DAILY 4 Days Qty: 4 0RF Rx Instructions: start on day 2 of therapy benzonatate 200 mg capsule 200 mg PO TID PRN (Reason: cough) Qty: 20 0RF ibuprofen 600 mg tablet 600 mg PO Q6H PRN (Reason: fever or pain) Qty: 30 0RF doxycycline hyclate 100 mg capsule 100 mg PO BID 10 Days Qty: 20 0RF cephalexin 500 mg capsule 500 mg PO Q6H 10 Days Qty: 40 0RF oxycodone 5 mg capsule 5 mg PO Q8H PRN (Reason: pain (scale score 7-10)) Qty: 5 0RF Rx Instructions: Partial Fill upon patient request.
[2023-07-12 04:05] LABS: Troponin-I High Sensitivity < 2.7 ng/L (<3.5-35.0)
== END 2023-07-12 05:16 | disposition home or self-care (01) ==
PROVIDERS: Emergency Provider Emergency Medicine
DX: R11.2 Nausea with vomiting, unspecified (principal); R42 Dizziness and giddiness; R10.13 Epigastric pain; R94.31 Abnormal electrocardiogram [ECG] [EKG]; Z79.899 Other long term (current) drug therapy
CPT/HCPCS: 36415; 80048; 80076; 83690; 84484; 85025; 93005; 99283; 99285

== ENCOUNTER → 2023-07-12 03:29 | Outpatient (BNV) | payer OTHER, SELFPAY | PROVIDERS: Emergency Provider Emergency Medicine; Visit Provider Internal Medicine Cardiovascular Disease | DX: R11.0 Nausea (principal) | CPT/HCPCS: 93010 ==

== ENCOUNTER 2023-07-12 12:30 | Outpatient (REF) | payer OTHER, SELFPAY ==
--- NOTE | ~2023-07-12 | XR_ITS ---
EXAMINATION: XR LUMBOSACRAL SPINE CLINICAL INFORMATION: Lower back pain without sciatica COMPARISON: Lumbar spine 01/30/2018 TECHNIQUE: Three views of the lumbosacral spine. FINDINGS: There 5 nonrib-bearing lumbar-type vertebral bodies. Alignment is within normal limits. The height of the lumbar vertebral bodies is well-maintained. No change in slight anterior wedge compression of the T12 vertebral body with a Schmorl's node in the inferior endplate. There is slight straightening of the usual lumbar lordosis which can be seen with muscle spasm. There is mild disc space narrowing at L5-S1 consistent with degenerative disc disease. There is degenerative facet joint disease L5-S1. XR/XR lumbar spine 2-3V IMPRESSION: 1. Muscle spasm. 2. Degenerative disc disease and degenerative facet joint disease at L5-S1. 3. No change in slight anterior wedge compression of the T12 vertebral body with a Schmorl's node in the inferior endplate.
== END 2023-07-12 12:31 | disposition home or self-care (01) ==
LOC: HO.HHCX 12:30
PROVIDERS: Visit Provider Student in an Organized Health Care Education/Training Program
DX: M54.50 Low back pain, unspecified (principal); G89.29 Other chronic pain
CPT/HCPCS: 72100

== ENCOUNTER → 2023-08-27 13:54 | Outpatient (BNVA) | payer OTHER, SELFPAY | PROVIDERS: Visit Provider Surgery ==

== ENCOUNTER → 2023-09-10 10:28 | Outpatient (BNVA) | payer OTHER, SELFPAY | PROVIDERS: PCP Family Medicine; Visit Provider Surgery ==

== ENCOUNTER 2023-09-10 10:29 | Outpatient (AMB) | payer OTHER, SELFPAY ==
[2023-09-10 10:29] VITALS: BP 120/71; PULSE 76; BMI 29.1
--- NOTE | 2023-09-10 10:29 | MHC.OFFVIS ---
Vital Signs 09/10/23 10:29 Height 5 ft 11 in Weight 209 lb BMI 29.1 BP 120/71 Blood Pressure Location Rt brachial Position Sitting Pulse 76 Intake Visit Reasons: perineal abscess Intake Note: This patient presents for [facility] ER follow-up for perineal abscess. Pt c/o; reports no complaints at this time. 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 Accompanied by: Self / Same As Patient Allergies penicillin V Allergy (Unknown, Verified 09/10/23 10:42) Unknown Penicillins [PENICILLINS] Allergy (Unknown, Verified 09/10/23 10:42) UNKNOWN REACTION A CHILD Medication List - Last Reconciled 09/10/23 by Tomas Sam MD azithromycin (Zithromax Z-Osorio) 250 mg PO DAILY 4 days benzonatate 200 mg PO TID PRN cephalexin 500 mg PO Q6H 10 days cephalexin 500 mg PO Q6H 10 days doxycycline hyclate 100 mg PO BID 10 days doxycycline hyclate 100 mg PO BID 10 days doxycycline monohydrate 100 mg PO BID ibuprofen 600 mg PO Q6H PRN levofloxacin 500 mg PO DAILY ondansetron 4 mg PO Q6H PRN oxycodone 5 mg PO Q8H PRN HPI HPI perineal abscess: Details: 43-year-old male referred for a previous perineal abscess. He says he went to the ER June, because of an abscess on the perineum. He says that he had this aspirated by the ER physician. He says that he has this problem before and this would occasionally swollen. He is thinking of having this area excised. He has not a diabetic. He denies drainage currently no any significant swelling. 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 No known health problems Social History Alcohol intake: current Alcohol intake frequency: holidays/special occasions only Comment: camera Patient Tobacco Use Status: Current everyday Tobacco user Cigarettes Per Day: 10 service: No Current occupational status: employed Review of Systems Const Denies chills and Denies fever(s) Card Denies chest pain, Denies dyspnea and Denies dyspnea on exertion Resp Denies cough, Denies dyspnea and Denies dyspnea on exertion GI Denies hematochezia and Denies change in bowel habits Denies hematuria and Denies difficulty urinating Musc Denies back pain and Denies limited range of motion Neuro Denies focal weakness and Denies convulsions Psych Denies depression and Denies mood swings Physical Exam Vital Signs: Last Vital Signs Pulse 76 09/10/23 10:29 BP 120/71 09/10/23 10:29 BMI result Body Mass Index 29.1 Const General: comfortable and no acute distress Resp Effort & Inspection: normal respiratory effort Cardio Rate: regular rate GI Palpation (GI): Soft to palpation Other: Perineal area - no obvious cyst, induration, sinus or discharge, no tenderness, no redness Assessment & Plan Assessment & Plan (1) 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 Currently, I do not feel this. He does state that this has recurred in the past I explained to him that since I can not identify the exact area, it would be best for him to come back when this is swollen so I will know exactly which area to excise. I will see him again in the office when he starts feeling this cyst. He understands the plan and is comfortable with this.
== END 2023-09-10 10:58 | disposition home or self-care (01) ==
PROVIDERS: PCP Family Medicine; Visit Provider Surgery
DX: N50.89 Other specified disorders of the male genital organs (principal)
CPT/HCPCS: 99203

== ENCOUNTER 2023-12-25 13:13 | Outpatient (REF) | payer OTHER, SELFPAY ==
[2023-12-25 16:26] LABS: Estimated Average Glucose 117 mg/dL; Hemoglobin A1c % 5.7 % (<6.0)
[2023-12-25 16:52] LABS: Alanine Aminotransferase 58 U/L (0-40); Albumin Level 4.9 g/dL (3.5-5.0); Alkaline Phosphatase 85 U/L (39-117); Anion Gap 11 (12-20); Aspartate Amino Transferase 26 U/L (5-37); Bilirubin Total 0.5 mg/dL (0.0-1.0); Blood Urea Nitrogen 15 mg/dL (9-16); Calcium 10.9 mg/dL (8.4-10.2); Carbon Dioxide 29 mmol/L (22-29); Chloride 105 mmol/L (96-108); Cholesterol 213 mg/dL (<200); Estimated Glomerular Filt Rate > 60; Glucose Random 93 mg/dL (60-115); HDL Cholesterol 36 mg/dL (>40); LDL Cholesterol Calculated 152 mg/dL (<100); Potassium 4.5 mmol/L (3.3-5.1); Sodium 140 mmol/L (135-145); Total Protein 8.1 g/dL (6.5-8.0); Triglycerides 128 mg/dL (<150)
[2023-12-25 16:54] LABS: Amphetamine Screen Urine Not Detected (Not Detect); Barbiturates, Urine Not Detected (Not Detect); Benzodiazepines Screen Urine Not Detected (Not Detect); Buprenorphine Scr Not Detected (Not Detect); Cannabinoid Screen Urine Not Detected (Not Detect); Cocaine Screen Urine Not Detected (Not Detect); Fentanyl, urine Not Detected (Not Detect); Methadone Screen, Urine Not Detected (Not Detect); Opiate Screen Urine Not Detected (Not Detect); Oxycodone Screen Urine Not Detected (Not Detect); Phencyclidine Screen Urine Not Detected (Not Detect)
[2023-12-25 17:09] LABS: TSH reflex Free T4 2.34 uIU/mL (0.32-4.0)
[2023-12-25 17:39] LABS: Reflex LDLD? No
== END 2023-12-25 13:14 | disposition home or self-care (01) ==
LOC: HO.HHCL 13:13
PROVIDERS: Visit Provider Family Medicine
DX: R73.01 Impaired fasting glucose (principal); Z02.1 Encounter for pre-employment examination
CPT/HCPCS: 80053; 80061; 80307; 83036; 84443

== ENCOUNTER → 2024-12-08 08:10 | Outpatient (BNVA) | payer SELFPAY | PROVIDERS: PCP Family Medicine; Visit Provider Physician Assistant Medical | DX: Z02.79 Encounter for issue of other medical certificate (principal) ==